=== PATIENT | female | born 1975 | race Caucasian/White ===

== ENCOUNTER → 2020-04-09 18:08 | Outpatient (CLI) | payer BC, SELFPAY ==
--- NOTE | ~2020-04-09 | MM_ITS ---
EXAMINATION: MM screening [facility] BI w [facility] HISTORY: Screening mammogram TECHNIQUE: Craniocaudal and mediolateral oblique 3-D tomosynthesis images were obtained and synthetic 2-D images were generated. CAD analysis was submitted and interpreted. COMPARISON: 03/22/2018 bilateral digital screening mammogram examination......... BREAST PARENCHYMAL COMPOSITION: There are scattered areas of fibroglandular density. FINDINGS: There is no evidence of suspicious mass, calcification, or architectural distortion to sugg est malignancy in either breast. There has been no suspicious interval change. IMPRESSION: 1. No mammographic evidence of malignancy. 2. Recommend routine screening mammography in one year. BI-RADS Category 1: Negative Reviewed, dictated and finalized at location A. R MAINTENANCE
== END ==
PROVIDERS: Visit Provider Nurse Practitioner
DX: Z12.31 Encounter for screening mammogram for malignant neoplasm of breast (principal)
CPT/HCPCS: 77063; 77067

== ENCOUNTER 2021-01-25 07:42 | Outpatient (CLI) | payer BC, SELFPAY ==
--- NOTE | 2021-02-04 23:23 | WPDHOMESLEEP ---
Sleep Study - Home Unattended Date of Study: 01/25/21 Ordering Provider: Ralph Magana APRN Interpreting Provider: Bee Arambula MD Home Sleep Study Type: Apnea Link Air Height: 1.6 m Weight: 99.79 kg Body Mass Index: 38.9 Neck Circumference (inches): 16 Temple: 13 Reason for Sleep Study Hypersomnia Sleep History Radha Jorge is a 45 year old female with excessive daytime sleepiness, non refreshing sleep and episodes of falling asleep while reading and watching television for almost 10 years. She wakes up throughout the night and has a difficult time waking in the morning. She does not awaken from sleep feeling short of breath. She occasionally awakens at night with heartburn, belching or coughing. She constantly snores and is frequently loud enough that others complain about it. She frequently has trouble sleeping with a cold. She does not wake up gasping for breath at night or have breathing problems at night observed by others. She constantly sweats excessively at night. She does not notice her heart pounding or beating irregularly at night. She frequently falls asleep during the day, occasionally involuntarily, but never while driving. She does not have loss of muscle tone with strong emotion. She rarely has daytime difficulties due to excessive sleepiness. She does not feel paralyzed on waking or falling asleep. She occasionally has vivid dreamlike scenes upon awakening or falling asleep. She does not feel afraid to go to sleep. She occasionally has nightmares. She rarely remembers her dreams. She frequently has racing thoughts. She frequently feels sad or depressed. She constantly has anxiety. She occasionally has muscular tension and occasionally notices parts of her body jerking. She rarely kicks at night. She does not have crawling and aching feelings in her legs. She denies any kind of leg pain at night. She does not have morning jaw pain. She does not grind her teeth during sleep. She rarely is bothered by pain during the day. She is not awakened by pain at night. She occasionally wakes up feeling stiff in the morning with sore achy muscles. She rarely wakes up with pain in the neck and spine. She has fatigue, memory problems, concentration difficulties and headaches. She feels depressed. Normal bedtime is 12:00 midnight falling asleep instantly, typically waking 2-4 times during the night. While awake, she will toss and turn, and play games on her phone to try to get back to sleep. It may take 30 minutes or up to an hour for her to return to sleep. She wakes the morning at 5:50 a.m.. On weekends, she has the same bedtime, midnight, wakes later at 7:00 am. She does not set an alarm for the weekend. She occasionally takes naps in the afternoon or evening. A short nap is not refreshing. She is usually drowsy for 3 hours or longer after waking. Habits: Never smoked tobacco. Caffeine 2 servings a day. Rare alcohol. No recreational drugs. [facility] Past Medical History Medical History (Updated 02/04/21 @ 23:41 by Bee Arambula MD) ADD (attention deficit disorder) Anemia Anxiety Depression Irritable bowel syndrome (IBS) Panic disorder Vitamin D deficiency Surgical History Surgical History (Updated 12/14/20 @ 14:52 by Ralph Magana APRN) History of ear surgery by Dr. Aguila Hx of tonsillectomy Family History Family History (Updated 12/14/20 @ 14:53 by Ralph Magana APRN) Mother Heart disease Acute myocardial infarction Hypertension Father Depression Anxiety Alcohol abuse Sibling Asthma Obesity Heart disease Social History Social History (Updated 12/14/20 @ 14:52 by Ralph Magana APRN) Smoking status: Never smoker Alcohol use details: social 2 drinks/month Substance use: never Medications Home Medications Medication Instructions Recorded Confirmed Type bupropion HCl 300 mg 24 hr tablet, 300 mg PO QAM 12/14/20 12/14/20 History
[2021-02-04 23:47] VITALS: BMI 38.9
== END 2021-01-26 13:08 | disposition home or self-care (01) ==
LOC: ANHCSM 07:48
PROVIDERS: PCP Family Medicine; Visit Provider Nurse Practitioner Family
DX: G47.10 Hypersomnia, unspecified (principal); G47.33 Obstructive sleep apnea (adult) (pediatric); F51.12 Insufficient sleep syndrome
CPT/HCPCS: 95806

== ENCOUNTER → 2021-11-10 16:21 | Outpatient (CLI) | payer BC, SELFPAY ==
--- NOTE | ~2021-11-10 | MM_ITS ---
EXAMINATION: MM screening [facility] BI w holly HISTORY: Screening TECHNIQUE: Craniocaudal and mediolateral oblique 3-D tomosynthesis images were obtained and synthetic 2-D images were generated. CAD analysis was submitted and interpreted. COMPARISON: Comparison to multiple prior studies sequentially, with oldest reviewed study dated 03/08. BREAST PARENCHYMAL COMPOSITION: There are scattered areas of fibroglandular density. FINDINGS: There is no evidence of suspicious mass, calcification, or architectural distortion to sugg est malignancy in either breast. There has been no suspicious interval change. IMPRESSION: 1. No mammographic evidence of malignancy. 2. Recommend routine screening mammography in one year. BI-RADS Category 1: Negative Reviewed, dictated and finalized at location A.
== END ==
PROVIDERS: PCP Nurse Practitioner; Visit Provider Nurse Practitioner
DX: Z12.31 Encounter for screening mammogram for malignant neoplasm of breast (principal)
CPT/HCPCS: 77063; 77067

== ENCOUNTER 2021-12-27 11:57 | Emergency (ER) | payer BC, SELFPAY ==
--- NOTE | ~2021-12-27 | XR_ITS ---
EXAMINATION: XR knee RT min 4V DATE: 12/27/2021 12:54 INDICATION: Left knee pain TECHNIQUE: Four views of the left knee were obtained. COMPARISON: None. FINDINGS: Alignment is normal. No fracture or osteochondral lesion. Joint spaces are normal with no e rosions. No joint effusion/synovitis. Soft tissues are unremarkable. IMPRESSION: 1. No acute osseous abnormality. Reviewed, dictated and finalized at location B.
[2021-12-27 12:32] VITALS: BP 145/86; PULSE 91; RESP 16; TEMP 36.5; O2SAT 100
--- NOTE | 2021-12-27 13:06 | ED.LOWEXIN ---
HPI - Extremity Injury (Lower) General Chief Complaint: Extremity Injury, Lower Stated Complaint: right knee injury Time Seen by Provider: 12/27/21 12:59 Source: RN notes reviewed History of Present Illness HPI Narrative: Patient presents emergency department from home for right knee pain. Patient states that yesterday her dog was on a leash when it chased after [place] at the park causing her to fall to the ground patient states she came down on her right knee states that since that time has had increased pain and swelling in her right knee worse with bending the knee and improved with straightening the knee she denies any other trauma or injury states she last took ibuprofen last night for the pain Related Data Home Medications Medication Instructions Recorded Confirmed bupropion HCl 300 mg 24 hr tablet, 300 mg PO QAM 12/14/20 09/08/21 extended release clonazepam 0.5 mg tablet 0.5 mg PO DAILY PRN 12/14/20 09/08/21 duloxetine 60 mg capsule,delayed 60 mg PO DAILY 12/14/20 09/08/21 release eluxadoline 75 mg tablet (Viberzi) 75 mg PO BID 12/14/20 09/08/21 ibuprofen 200 mg capsule 200 mg PO Q6H PRN 12/14/20 09/08/21 Allergies Allergy/AdvReac Type Severity Reaction Status Date / Time No Known Allergies Allergy Mild Verified 09/08/21 09:23 Review of Systems Review of Systems: Gen.: Denies fevers or chills Musculoskeletal: See HPI Neuro: Denies numbness, tingling, weakness Skin: Denies rash Endo: Denies DM PMFSH Past Medical History Medical History ADD (attention deficit disorder) Anemia Anxiety Depression Irritable bowel syndrome (IBS) Panic disorder Vitamin D deficiency Surgical History Surgical History History of ear surgery by Dr. Aguila Hx of tonsillectomy Family History Family History Mother Heart disease Acute myocardial infarction Hypertension Father Depression Anxiety Alcohol abuse Sibling Asthma Obesity Heart disease Social History Social History Smoking status: Never smoker Alcohol use details: social 2 drinks/month Substance use: never Exam Narrative: APPEARANCE: No acute distress, nontoxic, resting in bed Eyes: EOMI HEENT: Normocephalic, atraumatic, RESPIRATORY: No respiratory distress MUSCULOSKELETAl: Tender to palpation of the right anterior medial lateral knee mild swelling with no ecchymosis no tenderness of the right hip or ankle dorsalis pedis pulse 2+ neurovascular intact pain increased with flexion of the knee and improved with straightening of the knee NEURO: Awake and alert. Following commands, speech normal, no focal deficits SKIN:: Warm, dry. Normal Color no rash or lesions Course Vital Signs Vital signs: Vital Signs Temperature 97.7 F 12/27/21 12:32 Pulse Rate 91 12/27/21 12:32 Respiratory Rate 16 12/27/21 12:32 Blood Pressure 145/86 H 12/27/21 12:32 Pulse Oximetry 100 12/27/21 12:32 Oxygen Delivery Room Air 12/27/21 12:32 Temperature 97.7 F 12/27/21 12:32 Pulse Rate 91 12/27/21 12:32 Respiratory Rate 16 12/27/21 12:32 Blood Pressure 145/86 H 12/27/21 12:32 Pulse Oximetry 100 12/27/21 12:32 Oxygen Delivery Room Air 12/27/21 12:32 MDM - Extremity Injury (Lower) Imaging Data Radiologist's impression: ITS Impressions Knee X-Ray 12/27/21 12:56 IMPRESSION: 1. No acute osseous abnormality. Discharge Plan Discharge Clinical Impression: Contusion of knee Qualifiers: Encounter type: initial encounter Laterality: right Qualified Code(s): S80.01XA - Contusion of right knee, initial encounter Patient Disposition: Home, Self-Care Condition: Stable Instructions: Antibiotic Form, Knee Pain (ED) Additional Instructions: Return for increasing nuria
[2021-12-27] MEDS: IBUPROFEN 600 MG TABLET PO (13:19)
== END 2021-12-27 13:28 | disposition home or self-care (01) ==
PROVIDERS: Emergency Provider Emergency Medicine; PCP Nurse Practitioner
DX: S80.01XA Contusion of right knee, initial encounter (principal); F98.8 Other specified behavioral and emotional disorders with onset usually occurring in childhood and adolescence; D64.9 Anemia, unspecified; F41.9 Anxiety disorder, unspecified; F32.9 Major depressive disorder, single episode, unspecified; W01.0XXA Fall on same level from slipping, tripping and stumbling without subsequent striking against object, initial encounter
CPT/HCPCS: 73564; 99283; A9270

== ENCOUNTER 2022-03-25 15:47 | Emergency (ER) | payer BC, SELFPAY ==
[2022-03-25 16:05] VITALS: BP 138/92; PULSE 89; RESP 18; TEMP 36.6; O2SAT 100
--- NOTE | 2022-03-25 16:54 | ED.URI ---
HPI - URI/Sore Throat General Chief Complaint: Upper Respiratory Infection Stated Complaint: Congestion Time Seen by Provider: 03/25/22 16:54 Source: patient Mode of arrival: ambulatory Limitations: no limitations History of Present Illness HPI Narrative: 46-year-old female with complaint of sinus pressure congestion, CP, and bilateral ear pain for about 11 days. Right ear with more pain than left. She tested negative for COVID last week. Endorses chronic decreased hearing. Denies vertigo, tinnitus, shortness of breath, wheezing, nausea, vomiting, diarrhea, fevers or chills. Not taking anything for symptoms. Patient has history of cholesteatoma, tube placement and removal, follows with ENT, and has had ear bones replaced with plastic, and part of mastoid removed. Related Data Home Medications Medication Instructions Recorded Confirmed bupropion HCl 300 mg 24 hr tablet, 300 mg PO QAM 12/14/20 03/25/22 extended release clonazepam 0.5 mg tablet 0.5 mg PO DAILY PRN Anxiety 12/14/20 03/25/22 duloxetine 60 mg capsule,delayed 60 mg PO DAILY 12/14/20 03/25/22 release eluxadoline 75 mg tablet (Viberzi) 75 mg PO BID 12/14/20 03/25/22 Allergies Allergy/AdvReac Type Severity Reaction Status Date / Time No Known Allergies Allergy Mild Verified 03/25/22 16:34 Review of Systems Review of Systems: CONSTITUTIONAL: Denies malaise, chills, or fever. EYES: Denies visual changes, redness, or discharge. ENT: Denies rhinorrhea, congestion, sinus pain, and sore throat. Reports ear pain CARDIOVASCULAR: Denies chest pain, palpitations, or edema. RESPIRATORY: Denies cough or dyspnea. GASTROINTESTINAL: Denies abdominal pain, nausea, vomiting, diarrhea SKIN: Denies rash or itching. MUSCULOSKELETAL: Denies myalgia. NEUROLOGIC: Denies headache. All systems reviewed & are unremarkable except as noted in HPI and below PMFSH Past Medical History Medical History ADD (attention deficit disorder) Anemia Anxiety Depression Irritable bowel syndrome (IBS) Panic disorder Vitamin D deficiency Surgical History Surgical History History of ear surgery by Dr. Aguila Hx of tonsillectomy Family History Family History Mother Heart disease Acute myocardial infarction Hypertension Father Depression Anxiety Alcohol abuse Sibling Asthma Obesity Heart disease Social History Social History Smoking status: Never smoker Alcohol use details: social 2 drinks/month Substance use: never Comments At time of signature, agree with nursing past medical, surgical, social and family history. There is no relevant family history pertinent to the presenting complaint Exam Narrative: GENERAL: Well-appearing, well-nourished, and in no acute distress. EYES: PERRLA, conjunctivae clear ENT: Nares clear. Mucous membranes moist. Left TM pearly meraz with dull light reflex; Right canal without specific landmarks, TM appears scarred vs effusion, dull light reflex, no purulent drainage; no tragal tenderness. Oropharynx not erythematous without lesions. NECK: Supple. No lymphadenopathy CHEST: Clear to auscultation, breath sounds equal. HEART: Regular rate and rhythm. No murmur heard. SKIN: Warm, dry, no rash. NEURO: Alert and oriented x3. PSYCH: Normal mood and affect Course Course Emergency Course: Patient is aware of diagnosis, understands and agrees to treatment plan. Anticipatory guidance given. Patient agrees to follow-up as directed and is aware of reasons to seek care at the emergency department. Portions of this record may have been created with voice recognition software Level of Care: Express Care Visit Vital Signs Vital signs: Vital Signs Temperature 97.8 F 03/25/22 16:05 Pulse Rate 89 03/25/22
== END 2022-03-25 17:10 | disposition home or self-care (01) ==
PROVIDERS: Emergency Provider Nurse Practitioner Family
DX: J06.9 Acute upper respiratory infection, unspecified (principal); E55.9 Vitamin D deficiency, unspecified
CPT/HCPCS: 99213; G0463

== ENCOUNTER 2022-10-18 01:31 | Day surgery (SDC) | payer BC, SELFPAY ==
[2022-10-10 14:09] VITALS: BMI 44.1
[2022-10-18 08:50] VITALS: BP 146/96; PULSE 90; RESP 16; TEMP 36.2; O2SAT 95; BMI 45.5
[2022-10-18] MEDS: LACTATED RINGERS 1,000 ML 150 ML IV CONT (09:08)
--- NOTE | 2022-10-18 09:21 | WPDANESEPPF ---
Anes - Initial Pre Proc Eval Procedure: Operation Date: 10/18/22 10:00 Proposed Procedures p Screening Colonoscopy - Blane Morgan MD Date/Time: 10/18/22 09:21 Surgeon: Blane Morgan MD Pre Op Diagnosis: neoplasm screening Patient Data Age: 47 Gender: F Height: 1.6 m Weight: 116.6 kg Last Vital Signs Temp 36.2 C L 10/18/22 08:50 Pulse 90 10/18/22 08:50 Resp 16 10/18/22 08:50 BP 146/96 H 10/18/22 08:50 Pulse Ox 95 10/18/22 08:50 O2 Del Method Room Air 10/18/22 08:50 Allergies Allergy/AdvReac Type Severity Reaction Status Date / Time No Known Allergies Allergy Mild Verified 10/18/22 08:55 Home Medications Medication Instructions Recorded Confirmed Type clonazepam 0.5 mg tablet 0.5 mg PO DAILY PRN Anxiety 12/14/20 10/18/22 History eluxadoline 75 mg tablet (Viberzi) 75 mg PO BID 12/14/20 10/18/22 History lisdexamfetamine 50 mg capsule 50 mg PO DAILY 10/10/22 10/18/22 History (Vyvanse) Patient hx anesthesia problems: none Family hx anesthesia problems: none Results Review: All pre-operative results and documents have been reviewed as part of the pre-operative evaluation. [facility] Past Medical History Medical History ADD (attention deficit disorder) Anemia Anxiety Depression Irritable bowel syndrome (IBS) Panic disorder Vitamin D deficiency Surgical History Surgical History History of ear surgery by Dr. Aguila Hx of tonsillectomy Family History Family History Mother Heart disease Acute myocardial infarction Hypertension Father Depression Anxiety Alcohol abuse Sibling Asthma Obesity Heart disease Social History Social History Smoking status: Never smoker Alcohol intake: never Alcohol use details: social 2 drinks/month Substance use: never Substance use type: does not use Living arrangements: with family Spiritual care concerns: No Anes - Eval Final PreProcedure Day of Procedure 10/18/22 09:21 Patient weight: morbidly obese Heart: regular rate and rhythm Lungs: clear to auscultation and normal air movement Airway: Mallampati scale class II Neurological: alert and oriented Last oral intake: >/= 8 hours ASA classification: III Emergent: no Anesthetic plan: proceed Anesthesia type and monitoring: general GIVS Results Review: All pre-operative results and documents have been reviewed as part of the pre-operative evaluation. Informed Consent: The patient's anesthetic plan and its attendant risks and benefits were discussed with the patient/family/POA. Questions were solicited and answers provided to the satisfaction of the patient/family/POA.
--- NOTE | 2022-10-18 09:33 | PM.HPGS ---
History of Present Illness History of Present Illness Consent: Risks, benefits, and alternatives have been discussed and questions answered. Patient agrees to proceed with procedure. Chief complaint: neoplasm screening Narrative: Radha Jorge is a 47 year old female Referred for screening colonoscopy. Patient reports that she in the past she was told she had irritable bowel syndrome. She has diarrhea alternating with constipation. Primary care service gave her a prescription for for Viberzi that helps with diarrhea. That did not help with abdominal bloating or discomfort. She only takes this medication p.r.n.. Family history is noncontributory. Patient denies any bleeding. Her weight has remained stable. Review of Systems Review of Systems: Review of systems noncontributory. [facility] Past Medical History Medical History (Updated 10/18/22 @ 09:35 by Blane Morgan MD) ADD (attention deficit disorder) Anemia Anxiety Depression Irritable bowel syndrome (IBS) Panic disorder Vitamin D deficiency Surgical History Surgical History History of ear surgery by Dr. Aguila Hx of tonsillectomy Family History Family History Mother Heart disease Acute myocardial infarction Hypertension Father Depression Anxiety Alcohol abuse Sibling Asthma Obesity Heart disease Social History Social History Smoking status: Never smoker Alcohol intake: never Alcohol use details: social 2 drinks/month Substance use: never Substance use type: does not use Living arrangements: with family Spiritual care concerns: No Meds Home Medications and Allergies Home Medications Medication Instructions Recorded Confirmed Type clonazepam 0.5 mg tablet 0.5 mg PO DAILY PRN Anxiety 12/14/20 10/18/22 History eluxadoline 75 mg tablet (Viberzi) 75 mg PO BID 12/14/20 10/18/22 History lisdexamfetamine 50 mg capsule 50 mg PO DAILY 10/10/22 10/18/22 History (Vyvanse) Allergies Allergy/AdvReac Type Severity Reaction Status Date / Time No Known Allergies Allergy Mild Verified 10/18/22 08:55 Vital Signs Vital Signs - 24 hr 10/18/22 08:50 Temperature 97.1 F L Pulse Rate 90 Respiratory Rate 16 Blood Pressure 146/96 H Pulse Oximetry 95 Oxygen Delivery Room Air Exam Narrative: Physical exam reveals patient to be alert. Vital signs stable. HEENT exam is unremarkable. Patient is anicteric. Lungs are clear to auscultation and percussion. Heart is without murmur or extra sounds. Abdomen bowel sounds are present soft nontender with no organomegaly. Digital external rectal exam is normal. Assessment and Plan Assessment and plan (1) Encounter for screening colonoscopy: Code(s): Z12.11 - Encounter for screening for malignant neoplasm of colon Status: Acute Assessment and Plan: Patient presents for screening colonoscopy. Appears to be at average risk for colon polyps. Further recommendations may be given after endoscopy. (2) Irritable bowel syndrome (IBS): Code(s): K58.9 - Irritable bowel syndrome without diarrhea Status: Acute Assessment and Plan: Patient with apparent irritable bowel syndrome. She takes Viberzi but p.r.n.. Not on any specific diet. Plan to add FiberCon 2 tabs p.o. b.i.d.. If symptoms fail to improve follow-up in the office is advised for ongoing evaluation.
[2022-10-18 10:44] VITALS: BP 110/68; PULSE 71; RESP 26; O2SAT 98
[2022-10-18 10:54] VITALS: BP 134/85; PULSE 78; RESP 24; O2SAT 99
[2022-10-18 11:04] VITALS: BP 141/89; PULSE 63; RESP 24; O2SAT 99
== END 2022-10-18 11:13 | disposition home or self-care (01) ==
PROVIDERS: Referring Provider Obstetrics & Gynecology Gynecology; Visit Provider Internal Medicine Gastroenterology
PROC: 0DJD8ZZ Inspection of Lower Intestinal Tract, Via Natural or Artificial Opening Endoscopic (ICD-10-PCS; CPT 45378; principal; 2022-10-18 10:00)
DX: Z12.11 Encounter for screening for malignant neoplasm of colon (principal); K64.8 Other hemorrhoids; K58.9 Irritable bowel syndrome, unspecified; F98.8 Other specified behavioral and emotional disorders with onset usually occurring in childhood and adolescence; F41.9 Anxiety disorder, unspecified; F32.A Depression, unspecified; E66.01 Morbid (severe) obesity due to excess calories; Z68.42 Body mass index [BMI] 45.0-49.9, adult
CPT/HCPCS: 45378; J2704; J7120

== ENCOUNTER → 2023-05-25 12:31 | Outpatient (CLI) | payer BC, SELFPAY ==
--- NOTE | ~2023-05-25 | MM_ITS ---
EXAMINATION: MM screening [facility] BI w holly HISTORY: Screening TECHNIQUE: Craniocaudal and mediolateral oblique 3-D tomosynthesis images were obtained and synthetic 2-D images were generated. CAD analysis was submitted and interpreted. COMPARISON: Comparison to multiple prior studies sequentially, with oldest reviewed study dated 03/08. BREAST PARENCHYMAL COMPOSITION: There are scattered areas of fibroglandular density. FINDINGS: There is no evidence of suspicious mass, calcification, or architectural distortion to sugg est malignancy in either breast. There has been no suspicious interval change. IMPRESSION: 1. No mammographic evidence of malignancy. 2. Recommend routine screening mammography in one year. BI-RADS Category 1: Negative Reviewed, dictated and finalized at location A. [employer]
== END ==
PROVIDERS: PCP Nurse Practitioner; Visit Provider Nurse Practitioner
DX: Z12.31 Encounter for screening mammogram for malignant neoplasm of breast (principal)
CPT/HCPCS: 77063; 77067

== ENCOUNTER 2023-10-23 19:13 | Emergency (ER) | payer BC, SELFPAY ==
--- NOTE | 2023-10-23 19:16 | ED.LOWEXIN ---
HPI - Extremity Injury (Lower) General Chief Complaint: Extremity Injury, Lower Stated Complaint: left knee injury Time Seen by Provider: 10/23/23 19:15 Source: patient Mode of arrival: ambulatory Limitations: no limitations History of Present Illness HPI Narrative: Patient is a 48-year-old female presents with left knee pain for the last 2 weeks. Patient initially injured it a month ago. Patient has been helping a friend move and just started the VBS today. Patient has been wearing knee brace but has not iced, elevated or taken ibuprofen. Reports pain is the lowest in the morning after resting. Related Data Home Medications Medication Instructions Recorded Confirmed clonazepam 0.5 mg tablet 0.5 mg PO DAILY PRN Anxiety 12/14/20 03/08/23 lisdexamfetamine 50 mg capsule 50 mg PO DAILY 10/10/22 03/08/23 (Vyvanse) Allergies Allergy/AdvReac Type Severity Reaction Status Date / Time No Known Allergies Allergy Mild Verified 03/08/23 09:30 Review of Systems Review of Systems: All systems reviewed & are unremarkable except as noted in HPI and below Constitutional: Constitutional: Denies body ache(s), Denies chills, Denies fatigue, Denies fever(s), Denies headache(s), Denies malaise and Denies weakness Eyes: Eyes: Denies blurry vision, Denies irritation and Denies loss of vision ENT: Denies otalgia, Denies headache(s), Denies nasal discharge, Denies sinus pain and Denies sore throat Cardiovascular: Cardiovascular: Denies chest pain, Denies irregular heart rhythm and Denies dyspnea Respiratory: Respiratory: Denies dyspnea Gastrointestinal: Gastrointestinal: Denies abdominal pain, Denies melena, Denies hematochezia, Denies diarrhea, Denies nausea and Denies vomiting Musculoskeletal: Musculoskeletal: Denies back pain, Denies myalgias, Reports arthralgias and Reports joint swelling Integumentary/Breasts: Skin/Breast: Denies pruritus and Denies rash Neurologic: Denies headache(s), Denies loss of vision and Denies weakness Psychiatric: Psychiatric: Reports no additional psychiatric complaints Endocrine: Endocrine: Denies fatigue PMFSH Past Medical History Medical History ADD (attention deficit disorder) Anemia Anxiety Depression Irritable bowel syndrome (IBS) Panic disorder Vitamin D deficiency Surgical History Surgical History History of ear surgery by Dr. Aguila Hx of tonsillectomy Family History Family History Mother Heart disease Acute myocardial infarction Hypertension Father Depression Anxiety Alcohol abuse Sibling Asthma Obesity Heart disease Social History Social History Smoking status: Never smoker Alcohol intake: never Alcohol use details: social 2 drinks/month Substance use: never Substance use type: does not use Living arrangements: with family Spiritual care concerns: No Comments At time of signature, agree with nursing past medical, surgical, social and family history. There is no relevant family history pertinent to the presenting complaint. Exam Const: General: cooperative, healthy appearing, comfortable, no acute distress and well nourished Nutritional Appearance: well nourished Orientation/consciousness: patient oriented x3 Limitations: no limitations HENMT: Head: normal to inspection, normocephalic and atraumatic Ears: hearing grossly normal bilaterally and external ears normal Face/Nose/Sinus: Normal external nose present, normal facial exam and face symmetric Face and sinus: normal facial exam and face symmetric Mouth: Yes lip normal Eyes: General: appearance normal, both eyes and all related structures Alignment and Position: alignment normal and position normal Periorbital: periorbital findings normal Eyelids: eyelids
[2023-10-23 19:19] VITALS: BP 139/68; PULSE 91; RESP 16; TEMP 36.1; O2SAT 98
== END 2023-10-23 20:00 | disposition home or self-care (01) ==
PROVIDERS: Emergency Provider Nurse Practitioner Family; Referring Provider Emergency Medicine
DX: M23.92 Unspecified internal derangement of left knee (principal); F98.8 Other specified behavioral and emotional disorders with onset usually occurring in childhood and adolescence; F41.9 Anxiety disorder, unspecified
CPT/HCPCS: 99213; G0463

== ENCOUNTER 2023-11-13 14:33 | Emergency (ER) | payer BC, SELFPAY ==
--- NOTE | ~2023-11-13 | US_ITS ---
EXAMINATION: US venous doppler [facility] DATE: 11/13/2023 18:44 INDICATION: Left lower limb pain and swelling. TECHNIQUE: Grayscale ultrasound images without and with compression and Doppler ultrasound images of the left lower extremity veins were obtained. COMPARISON: None. FINDINGS: The visualized portions of left common femoral vein, profunda (deep) femoral vein, femoral vein, popl iteal vein, peroneal veins, posterior tibial veins, and greater saphenous vein outflow are patent. IMPRESSION: 1. No deep venous thrombosis. Reviewed, dictated and finalized at location E.
--- NOTE | ~2023-11-13 | XR_ITS ---
XR knee LT min 4V Ordering provider: Dexter Kelsey MD History: . TWISTING INJURY TO KNEE 5 WEEKS AGO/PAIN TO ENTIRE KNEE . Comparison: None. FINDINGS: BONES: No acute fracture or dislocation. JOINT SPACES: Slight narrowing of the lateral compartment. SOFT TISSUES: Normal. IMPRESSION: No acute osseous abnormality left knee. Mild osteoarthritic changes. Reviewed, dictated and finalized at location A.
[2023-11-13 14:36] VITALS: BP 185/82; PULSE 78; RESP 16; TEMP 36.8; O2SAT 97
--- NOTE | 2023-11-13 17:02 | ED.LOWEXIN ---
HPI - Extremity Injury (Lower) General Chief Complaint: Extremity Injury, Lower Stated Complaint: L knee pain Time Seen by Provider: 11/13/23 16:57 Source: patient Mode of arrival: ambulatory Limitations: no limitations History of Present Illness HPI Narrative: Patient is a 48 y/o female who presents to the ED with c/o L knee pain. Patient reports she hyperextended her L knee a few months ago after sleeping in an awkward position. She reports 5 weeks ago, she twisted her L knee, heard and felt a pop at that time. Reported having worsening pain and swelling at that time. Has been wearing a knee brace and using ibuprofen with some relief. States she was seen at an last week and was Rx'd steroids which did improve her pain. Reports she has had worsening pain over past few days. Denies any further injury. Does reports swelling extending into her L lower leg/ankle region. Has an appointment with Dr. Khan on November 21. Denies numbness, hx of blood clots. Related Data Home Medications Medication Instructions Recorded Confirmed clonazepam 0.5 mg tablet 0.5 mg PO DAILY PRN Anxiety 12/14/20 03/08/23 lisdexamfetamine 50 mg capsule 50 mg PO DAILY 10/10/22 03/08/23 (Vyvanse) Allergies Allergy/AdvReac Type Severity Reaction Status Date / Time No Known Allergies Allergy Mild Verified 03/08/23 09:30 Review of Systems Review of Systems: CONSTITUTIONAL: Denies fever, chills, or sweats. MUSCULOSKELETAL: See HPI. NEUROLOGIC: Denies headache, dizziness, numbness, or weakness. All systems reviewed & are unremarkable except as noted in HPI and below PMFSH Past Medical History Medical History ADD (attention deficit disorder) Anemia Anxiety Depression Irritable bowel syndrome (IBS) Panic disorder Vitamin D deficiency Surgical History Surgical History History of ear surgery by Dr. Aguila Hx of tonsillectomy Family History Family History Mother Heart disease Acute myocardial infarction Hypertension Father Depression Anxiety Alcohol abuse Sibling Asthma Obesity Heart disease Social History Social History Smoking status: Never smoker Alcohol intake: never Alcohol use details: social 2 drinks/month Substance use: never Substance use type: does not use Living arrangements: with family Spiritual care concerns: No Exam Narrative: GENERAL: Well appearing, morbidly obese with BMI of 43.5, non-toxic, in no acute distress. HEAD: Normocephalic, atraumatic. RESPIRATORY: Airway patent, respirations nonlabored. CARDIOVASCULAR: Regular rate and rhythm without murmurs, rubs, or gallops. Pedal pulses intact. MUSCULOSKELETAL: Moves all extremities. No gross deformities. TTP throughout inferior and lateral knee joint spaces, mild swelling noted laterally. Sensation intact. Mild swelling throughout left lower leg compared to R. SKIN: Warm, dry, normal color. NEURO: A&O X3. Speech clear. Cranial nerves II-XII grossly intact. Steady gait, mildly antalgic. No ataxic movements. PSYCHIATRIC: Appropriate mood and affect. Normal interaction. Course Vital Signs Vital signs: Vital Signs Temperature 98.3 F 11/13/23 14:36 Pulse Rate 78 11/13/23 14:36 Respiratory Rate 16 11/13/23 14:36 Blood Pressure 185/82 H 11/13/23 14:36 Pulse Oximetry 97 11/13/23 14:36 Temperature 97.7 F 11/13/23 17:34 Pulse Rate 84 11/13/23 17:34 Respiratory Rate 18 11/13/23 17:34 Blood Pressure 152/76 H 11/13/23 17:34 Pulse Oximetry 98 11/13/23 17:34 MDM - Extremity Injury (Lower) MDM Narrative Medical decision making narrative: Patient?s injury is consistent with musculoskeletal etiology. No signs of neurologic or vascular compromise
[2023-11-13 17:34] VITALS: BP 152/76; PULSE 84; RESP 18; TEMP 36.5; O2SAT 98
[2023-11-13 19:21] VITALS: BP 142/74; PULSE 74; RESP 20; O2SAT 98
== END 2023-11-13 19:05 | disposition home or self-care (01) ==
LOC: ANHED 19:08
PROVIDERS: Emergency Provider Physician Assistant
DX: M23.92 Unspecified internal derangement of left knee (principal); F98.8 Other specified behavioral and emotional disorders with onset usually occurring in childhood and adolescence; D64.9 Anemia, unspecified; F41.9 Anxiety disorder, unspecified; F32.A Depression, unspecified
CPT/HCPCS: 73564; 93971; 99284

== ENCOUNTER 2023-11-28 13:39 | Outpatient (CLI) | payer BC, SELFPAY ==
--- NOTE | ~2023-11-28 | MR_ITS ---
EXAMINATION: MR knee LT wo con DATE: 11/28/2023 14:39 INDICATION: Unspecified internal derangement of left knee TECHNIQUE: Magnetic resonance imaging (MRI) of the knee was performed without intravenous contrast. S equences included axial PD-weighted FS FSE, coronal PD-weighted FSE and PD-weighted FS FSE, sagittal PD-weighted FSE, and sagittal T2-weighted FS FSE. COMPARISON: 11/13/2023. FINDINGS: Medial compartment: Large area of full-thickness cartilage loss on the MFC, measuring up to 15 mm. Vertically oriented te ar of the meniscal root with mild extrusion. Lateral compartment: Mild diffuse cartilage thinning. Intact meniscus. Patellofemoral compartment: Mild diffuse cartilage thinning. Intact retinacula. Ligaments and tendons: Abnormal signal deep to the MCL fibers with fiber discontinuity. The ACL, PCL, and LCL are intact. Re maining flexor and extensor tendons are intact. Fluid: Moderate volume joint fluid. Small Reed's cyst. Osseous/other: No suspicious focal or diffuse marrow signal. Varicose veins. IMPRESSION: Tear of the meniscal root ligament, medial meniscus. Partial MCL tear. Large area of full-thickness cartilage loss on the MFC. Moderate volume joint effusion. Reviewed, dictated and finalized at location K.
== END 2023-11-28 13:40 ==
LOC: GOSHIMG 13:40
PROVIDERS: PCP Physician Assistant Surgical; Visit Provider Physician Assistant Surgical
DX: S83.242D Other tear of medial meniscus, current injury, left knee, subsequent encounter (principal); X58.XXXD Exposure to other specified factors, subsequent encounter; M25.462 Effusion, left knee
CPT/HCPCS: 73721

== ENCOUNTER 2024-01-12 11:14 | Emergency (ER) | payer BC, SELFPAY ==
[2024-01-12 11:30] VITALS: BP 136/61; PULSE 78; RESP 18; TEMP 36.1; O2SAT 100
--- NOTE | 2024-01-12 11:40 | ED.URI ---
HPI - URI/Sore Throat General Chief Complaint: Upper Respiratory Infection Stated Complaint: sore throat Time Seen by Provider: 01/12/24 11:40 Source: patient Mode of arrival: ambulatory Limitations: no limitations History of Present Illness HPI Narrative: 48-year-old female presents with complaint of nasal congestion and fatigue since yesterday. Patient states she recently got home from work conference. Did a COVID test today and it was positive. No chest pain or shortness breath. Reports mild sore throat and coughing. patient concerned she may need paxlovid All systems reviewed and negative except as noted above. Related Data Home Medications Medication Instructions Recorded Confirmed clonazepam 0.5 mg tablet 0.5 mg PO DAILY PRN Anxiety 12/14/20 01/12/24 lisdexamfetamine 50 mg capsule 50 mg PO DAILY 10/10/22 01/12/24 (Vyvanse) duloxetine 60 mg capsule,delayed 60 mg PO DAILY 01/12/24 01/12/24 release Allergies Allergy/AdvReac Type Severity Reaction Status Date / Time No Known Allergies Allergy Mild Verified 01/12/24 11:29 Review of Systems Review of Systems: CONSTITUTIONAL: Denies fever, chills, or sweats. Reports fatigue. EYES: Denies visual changes, redness, or discharge. ENT: Reports rhinorrhea, congestion, sore throat. Denies otalgia. CARDIOVASCULAR: Denies chest pain, palpitations, or edema. RESPIRATORY: reports cough. Denies dyspnea. GASTROINTESTINAL: Denies abdominal pain, nausea, vomiting, or diarrhea. GENITOURINARY: Denies dysuria or hematuria. SKIN: Denies rash or itching. MUSCULOSKELETAL: Denies back pain, joint pain, or myalgia. NEUROLOGIC: Denies headache, numbness, or weakness. PSYCHIATRIC: Denies anxiety or depression. All other systems reviewed are negative, except as documented in HPI. [facility] Past Medical History Medical History ADD (attention deficit disorder) Anemia Anxiety Depression Irritable bowel syndrome (IBS) Panic disorder Vitamin D deficiency Surgical History Surgical History History of ear surgery (~01/2005) by Dr. Aguila History of tympanomastoidectomy (~10/2006) History of tympanomastoidectomy (~03/2010) Hx of tonsillectomy Family History Family History Mother Heart disease Acute myocardial infarction Hypertension Rheumatoid arthritis Father Depression Anxiety Alcohol abuse Sibling Asthma Obesity Heart disease Social History Social History Smoking status: Never smoker Alcohol intake: never Alcohol use details: social 2 drinks/month Substance use: never Substance use type: does not use Do You Feel Safe in your Home?: Yes Lack of Transportation: No Lack of Food: Never True Current Housing: I Have Housing Concerned About Future Housing: No Difficulty Paying Gas/Electric Bills: No Difficulty Paying for Meds: No Currently Unemployed: No Education: Bachelor's Degree Difficulty w/ Childcare or Family Care: No Living arrangements: with family Spiritual care concerns: No Comments At time of signature, agree with nursing past medical, surgical, social and family history. There is no relevant family history pertinent to the presenting complaint. Exam Narrative: GENERAL: This is a well-nourished, well-developed patient, in no apparent distress. HEAD: normocephalic, atraumatic. EYES: PERRL. Sclera clear/white. Vision is grossly intact. EARS: External ears normal, auditory canals clear and without drainage, TMs normal without perforation. Hearing grossly intact. NOSE: External nose normal with clear nasal drainage, mild congestion. THROAT: Mucous membranes moist, Mild erythema postnasal drainage. NECK: Neck supple, non-tender without lymphadenopathy, masses or thyromegaly.
== END 2024-01-12 11:53 | disposition home or self-care (01) ==
PROVIDERS: Emergency Provider Nurse Practitioner Family
DX: U07.1 COVID-19 (principal); F98.8 Other specified behavioral and emotional disorders with onset usually occurring in childhood and adolescence; F41.9 Anxiety disorder, unspecified
CPT/HCPCS: 99211; G0463

== ENCOUNTER 2024-03-04 02:25 | Day surgery (SDC) | payer BC, SELFPAY ==
[2024-02-26 13:34] VITALS: BMI 43.4
--- NOTE | 2024-02-26 13:35 | PC.NURSE ---
Report to the Outpatient Waiting Room, entrance under the green pavilion located off [facility], at time _1pm_ on date _[id number]_. Planned Procedure Time: _3pm__.? Time changes happen often and if your time is changed the preop area will call you the afternoon before. - You and your visitor will be asked to self-screen and do not enter if you have any COVID symptoms. Please call surgeon if you need to reschedule. - A mask is optional within the hospital at this time. Patients may have clear liquids (water, carbonated beverages, clear teas, apple juice) until 3 hours prior to surgery with a maximum of 20 ounces. - No food from midnight until time of surgery and no smoking Take only the following medications with a SIP of water on the morning of surgery: ____Trintellix and if needed may take clonazepam DO NOT STOP ANY OF YOUR OTHER PRESCRIPTION MEDICATIONS PRIOR TO SURGERY EXCEPT THE FOLLOWING Medications to discontinue per physician ___None__ Please no make-up, nail macedonian, hairspray, perfume, deodorant, or body powder the day of surgery.? No jewelry (including any body piercings) or valuables the day of surgery, leave them at home.? Please take a shower or bath the night before, or the morning of, surgery with an antibacterial soap.? Wear comfortable, loose fitting clothing.? - Jewelry must be removed prior to entering the operating room.? Rings and piercings that are not removed may be cut off. - The hospital will not accept responsibility for valuables.? - Please leave all valuables, including medications, at home the day of surgery. If you are going home after surgery, a licensed special needs bus driver must drive you home.? - NO public transportation without another adult if you receive anesthesia. - We recommend that an adult stay with you for 24 hours following discharge. - We also recommend that you do not drive, make important decision, drink alcoholic beverages, or take any drugs that were not prescribed by your health care provider for at least 24 hours after your discharge time. Follow any additional instructions given to you from your surgeon. Telephone instructions given to __Joy_and asked if any additional questions and then verbalized understanding. Patient advised to call surgeon office or pre surgery nurse liaison [phone] if any additional questions.
--- NOTE | 2024-03-03 15:59 | WPDANESEPP ---
Caitie - Good Pre Procedure Procedure: Operation Date: 03/04/24 15:00 Proposed Procedures p Left Knee Arthroscopy, Partial Medial Meniscectomy with Chondroplasty - Emilio Khan MD Date/Time: 03/03/24 15:59 Pre Op Diagnosis: left knee medial meniscus tear Patient Data Age: 48 Gender: F Height: 1.6 m Weight: 111.4 kg Allergies Allergy/AdvReac Type Severity Reaction Status Date / Time No Known Allergies Allergy Mild Verified 02/26/24 13:27 Home Medications Medication Instructions Recorded Confirmed Type clonazepam 0.5 mg tablet 0.5 mg PO DAILY PRN Anxiety 12/14/20 02/26/24 History lisdexamfetamine 30 mg capsule 30 mg PO DAILY 02/26/24 02/26/24 History vortioxetine 10 mg tablet 10 mg PO DAILY 02/26/24 02/26/24 History (Trintellix) Patient hx anesthesia problems: none Family hx anesthesia problems: none Results Review: All pre-operative results and documents have been reviewed as part of the pre-operative evaluation. [facility], [facility] Past Medical History Medical History ADD (attention deficit disorder) Anemia Anxiety Depression Irritable bowel syndrome (IBS) Panic disorder Vitamin D deficiency Surgical History Surgical History History of ear surgery (~01/2005) by Dr. Aguila History of tympanomastoidectomy (~10/2006) History of tympanomastoidectomy (~03/2010) Hx of tonsillectomy Family History Family History Mother Heart disease Acute myocardial infarction Hypertension Rheumatoid arthritis Father Depression Anxiety Alcohol abuse Sibling Asthma Obesity Heart disease Social History Social History Smoking status: Never smoker Alcohol intake: never Alcohol use details: social 2 drinks/month Substance use: never Substance use type: does not use Do You Feel Safe in your Home?: Yes Lack of Transportation: No Lack of Food: Never True Current Housing: I Have Housing Concerned About Future Housing: No Difficulty Paying Gas/Electric Bills: No Difficulty Paying for Meds: No Currently Unemployed: No Education: Bachelor's Degree Difficulty w/ Childcare or Family Care: No Living arrangements: with family Spiritual care concerns: No Exam Day of Procedure 03/03/24 15:59
[2024-03-04] VITALS (8 sets, daily range): BP systolic 136–149; BP diastolic 73–98; PULSE 76–88; RESP 16–100; TEMP 36.9; O2SAT 94–100
[2024-03-04] MEDS: LACTATED RINGERS 1,000 ML 30 ML IV CONT ×3 (13:30→16:44)
--- NOTE | 2024-03-04 14:13 | WPDANESEPPF ---
Anes - Initial Pre Proc Eval Procedure: Operation Date: 03/04/24 15:00 Proposed Procedures p Left Knee Arthroscopy, Partial Medial Meniscectomy with Chondroplasty - Emilio Khan MD Date/Time: 03/04/24 14:13 Surgeon: Emilio Khan MD Pre Op Diagnosis: left knee medial meniscus tear Patient Data Age: 48 Gender: F Height: 1.6 m Weight: 111.4 kg Allergies Allergy/AdvReac Type Severity Reaction Status Date / Time No Known Allergies Allergy Mild Verified 02/26/24 13:27 Home Medications Medication Instructions Recorded Confirmed Type clonazepam 0.5 mg tablet 0.5 mg PO DAILY PRN Anxiety 12/14/20 02/26/24 History lisdexamfetamine 30 mg capsule 30 mg PO DAILY 02/26/24 02/26/24 History vortioxetine 10 mg tablet 10 mg PO DAILY 02/26/24 02/26/24 History (Trintellix) hydrocodone 5 mg-acetaminophen 325 1 - 2 tablet PO Q4-6H PRN pain 7 03/04/24 Rx mg tablet days #30 tabs Patient hx anesthesia problems: none Family hx anesthesia problems: none Results Review: All pre-operative results and documents have been reviewed as part of the pre-operative evaluation. [facility] Past Medical History Medical History ADD (attention deficit disorder) Anemia Anxiety Depression Irritable bowel syndrome (IBS) Panic disorder Vitamin D deficiency Surgical History Surgical History History of ear surgery (~01/2005) by Dr. Aguila History of tympanomastoidectomy (~10/2006) History of tympanomastoidectomy (~03/2010) Hx of tonsillectomy Family History Family History Mother Heart disease Acute myocardial infarction Hypertension Rheumatoid arthritis Father Depression Anxiety Alcohol abuse Sibling Asthma Obesity Heart disease Social History Social History Smoking status: Never smoker Alcohol intake: never Alcohol use details: social 2 drinks/month Substance use: never Substance use type: does not use Do You Feel Safe in your Home?: Yes Lack of Transportation: No Lack of Food: Never True Current Housing: I Have Housing Concerned About Future Housing: No Difficulty Paying Gas/Electric Bills: No Difficulty Paying for Meds: No Currently Unemployed: No Education: Bachelor's Degree Difficulty w/ Childcare or Family Care: No Living arrangements: with family Spiritual care concerns: No Anes - Eval Final PreProcedure Day of Procedure 03/04/24 14:13 Patient weight: morbidly obese Heart: regular rate and rhythm Lungs: clear to auscultation Airway: Mallampati scale class II Neurological: alert and oriented Last oral intake: >/= 8 hours ASA classification: III Emergent: no Anesthetic plan: proceed Anesthesia type and monitoring: general LMA and standard monitoring Results Review: All pre-operative results and documents have been reviewed as part of the pre-operative evaluation. Informed Consent: The patient's anesthetic plan and its attendant risks and benefits were discussed with the patient/family/POA. Questions were solicited and answers provided to the satisfaction of the patient/family/POA.
[2024-03-04] MEDS: KETOROLAC 15 MG/ML VIAL (*BKC) IV PUSH (14:22)
[2024-03-04] MEDS: ACETAMINOPHEN 500 MG TABLET 1000 MG PO (14:22)
--- NOTE | 2024-03-04 14:54 | WPDHPUPDATE1 ---
History and Physical Update Update Date/Time: 03/04/24 14:54 History and Physical has been reviewed, including an updated exam of the patient. There are NO changes in the patient's condition. Risks, benefits, and alternatives have been discussed and questions answered. Patient agrees to proceed with procedure.
[2024-03-04] MEDS: ceFAZolin 2 GM/D5W 50 ML 2 GM/50 ML BAG IVPB (15:17)
[2024-03-04] MEDS: BUPIVACAINE/EPINEPHRINE 0.5% 50 ML VIAL 20 ML INFILTRATE (15:32)
--- NOTE | 2024-03-04 16:23 | P.OP_ITS ---
Procedure Note - Detailed Date of Procedure 03/04/24 Pre-op Diagnosis Left knee medial meniscus tear Post-op Diagnosis Same Procedure Performed Arthroscopic partial medial meniscectomy, left knee. Surgeon Emilio Khan MD Anesthesia General Findings Root tear posterior horn medial meniscus. 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 Lateral compartment normal. Medial femur chondromalacia grade 4, medial tibia grade 1. Lateral femur chondromalacia grade 0, lateral tibia grade 0. Description of Procedure The patient was identified and the surgical site confirmed and signed in the preoperative holding area. Antibiotics were started per protocol, and the patient was brought to the operative room and transferred to the OR table. A general anesthetic was administered. Supine position with the operative lower extremity position in the leg lorenzo after placement of a well padded tourniquet. The leg support was lowered and the contralateral limb was supported with a soft bolster. The knee was prepped and draped in the usual sterile fashion. A time-out was performed. The portal sites were marked and infiltrated with 0.5% Marcaine 20 mL. The limb was exsanguinated and the tourniquet inflated to 300 mL Hg. Standard inferolateral and inferomedial portals were established. Inflow was obtained with the saline pump. The camera was introduced. Diagnostic inspection of the joint was accomplished. The meniscus was debrided with the ar throscopic shaver and punches until stable. The radiofrequency probe was also used for further d?bridement. Small central lateral area of grade 4 chondromalacia with exposed bone, not amenable to microfracture due to thin surrounding cartilage. The arthroscopic instruments were removed. The tourniquet released and wounds closed with subcutaneous 4-0 Monocryl absorbable suture. Steri strips and a sterile dressing were applied. A light elastic wrap was placed. The patient was extubated and brought to the recovery room in stable condition. Estimated Blood Loss 1 Drains No Complications No immediate complications Condition Stable Disposition PACU [facility] Billing Surgery - Charge Forward: Surgery Billing
[2024-03-04] MEDS: ONDANSETRON INJ 4 MG/2 ML VIAL IV PUSH (16:30)
== END 2024-03-04 17:45 | disposition home or self-care (01) ==
PROVIDERS: Visit Provider Orthopaedic Surgery
PROC: (CPT 29870; principal; 2024-03-04 15:00)
DX: S83.242A Other tear of medial meniscus, current injury, left knee, initial encounter (principal); M94.262 Chondromalacia, left knee; M17.12 Unilateral primary osteoarthritis, left knee; X58.XXXA Exposure to other specified factors, initial encounter; F98.8 Other specified behavioral and emotional disorders with onset usually occurring in childhood and adolescence; D64.9 Anemia, unspecified; F41.9 Anxiety disorder, unspecified; F32.A Depression, unspecified; K58.9 Irritable bowel syndrome, unspecified; F41.0 Panic disorder [episodic paroxysmal anxiety]; E55.9 Vitamin D deficiency, unspecified; E66.01 Morbid (severe) obesity due to excess calories; Z68.41 Body mass index [BMI] 40.0-44.9, adult; Z79.891 Long term (current) use of opiate analgesic; Z98.890 Other specified postprocedural states; Z82.49 Family history of ischemic heart disease and other diseases of the circulatory system
CPT/HCPCS: 29881; A9270; J0690; J1100; J1885; J2250; J2405; J2704; J3010; J7120

== ENCOUNTER 2024-07-12 14:18 | Emergency (ER) | payer BC, SELFPAY ==
--- NOTE | 2024-07-12 14:23 | ED_ITS ---
HPI - General Adult General Chief complaint: Skin/Abscess/Foreign Body Stated complaint: lip swelling Time Seen by Provider: 07/12/24 14:21 Source: patient Mode of arrival: ambulatory Limitations: no limitations History of Present Illness HPI narrative: Patient is a 41-year-old female who presents with intermittent lip swelling over the past several months. Patient states she feels her lips are very dry and flaky and then feel like they are burning. Patient has used no new cosmetic products or soaps. States over the past week they of been swollen intermittently but more than normal. States she did have what appeared to be cold sores a week ago. Denies any sores in mouth, swelling to tongue or feeling like throat is closing. Related Data Home Medications ?Medication ?Instructions ?Recorded ?Confirmed ?Last Taken ?Type clonazepam 0.5 mg tablet 0.5 mg PO DAILY PRN Anxiety 12/14/20 04/15/24 Unknown History lisdexamfetamine 30 mg capsule 30 mg PO DAILY 02/26/24 04/15/24 Unknown History vortioxetine 10 mg tablet 10 mg PO DAILY 02/26/24 04/15/24 03/04/24 06:00 History (Trintellix) Allergies Allergy/AdvReac Type Severity Reaction Status Date / Time bupropion (From Wellbutrin) AdvReac Intermediate tremors Verified 07/12/24 15:22 Review of Systems Review of Systems: All systems reviewed & are unremarkable except as noted in HPI and below Constitutional: Constitutional: Denies body ache(s), Denies chills, Denies fatigue, Denies fever(s), Denies headache(s), Denies malaise and Denies weakness Eyes: Eyes: Denies blurry vision, Denies irritation and Denies loss of vision ENT: Denies otalgia, Denies headache(s), Denies nasal discharge, Denies sinus pain, Denies sore throat and Reports other (lip pain and swelling) Cardiovascular: Cardiovascular: Denies chest pain, Denies irregular heart rhythm and Denies dyspnea Respiratory: Respiratory: Denies dyspnea Gastrointestinal: Gastrointestinal: Denies abdominal pain, Denies melena, Denies hematochezia, Denies diarrhea, Denies nausea and Denies vomiting Musculoskeletal: Musculoskeletal: Denies back pain, Denies myalgias and Denies arthralgias Integumentary/Breasts: Skin/Breast: Denies pruritus and Denies rash Neurologic: Denies headache(s), Denies loss of vision and Denies weakness Psychiatric: Psychiatric: Reports no additional psychiatric complaints Endocrine: Endocrine: Denies fatigue PMFSH Past Medical History Medical History Irritable bowel syndrome (IBS) ADD (attention deficit disorder) Vitamin D deficiency Anemia Panic disorder Anxiety Depression Surgical History Surgical History History of tympanomastoidectomy (~03/2010) History of tympanomastoidectomy (~10/2006) History of ear surgery (~01/2005) by Dr. Aguila Hx of tonsillectomy Family History Family History Mother Heart disease Acute myocardial infarction Hypertension Rheumatoid arthritis Father Depression Anxiety Alcohol abuse Sibling Asthma Obesity Heart disease Social History Social History Smoking status: Never smoker Alcohol intake: never Alcohol use details: social 2 drinks/month Substance use: never Substance use type: does not use Do You Feel Safe in your Home?: Yes Lack of Transportation: No Lack of Food: Never True Current Housing: I Have Housing Concerned About Future Housing: No Difficulty Paying Gas/Electric Bills: No Difficulty Paying for Meds: No Currently Unemployed: No Education: Bachelor's Degree Difficulty w/ Childcare or Family Care: No Living arrangements: with family Spiritual care concerns: No Comments At time of signature, agree with nursing past medical, surgical, social and family history. There is no relevant family history pertinent to the presenting complaint. Exam Const: General: cooperative, healthy appearing, comfortable, no acute distress and well nourished Nutritional Appearance: well nourished Orientation/consciousness: patient oriented x3 Limitations: no limitations HENMT: Head: normal to inspection, normocephalic and atraumatic Ears: hearing grossly normal bilaterally and external ears normal Face/Nose/Sinus: Normal external nose present, normal facial exam and face symmetric Face and sinus: normal facial exam and face symmetric Mouth: Yes Normal oral and palatal mucosa present, Yes tongue normal, Yes Normal salivary glands and ducts present, Yes oropharynx normal, Yes moist mucous membranes, No drooling, Yes lip abnormal bilateral diffuse swelling and fissure, No malodorous breath, No muffled voice and No trismus Eyes: General: appearance normal, both eyes and all related structures Alignment and Position: alignment normal and position normal Periorbital: periorbital findings normal Eyelids: eyelids normal Pupils: Equal, round and reactive pupils present EOM: EOMs intact bilaterally Neck: Neck: normal visual inspection, full ROM and supple Chest: Chest palpation & inspection: normal inspection of the chest Resp: Effort & Inspection: normal respiratory effort and able to speak in complete sentences Auscultation: clear to auscultation bilaterally Cardio: Rate: regular rate Rhythm: regular rhythm Heart sounds: S1 normal heart sound present and S2 normal heart sound present GI: Inspection: normal to inspection Skin: General skin exam: normal color and no rashes or lesions noted Neuro: General: patient oriented x3 and moves all extremities Cranial nerves: Yes Equal, round and reactive pupils present Speech: normal speech Gait exam (Neuro): Normal gait present Extrem: General: normal to inspection, full ROM and no edema Psych: Appearance: grossly normal and well kempt Mental Status: mental status grossly normal Speech and movement: Normal speech and movement present Affect: normal affect Attitude: cooperative Thought process: Normal thought process present Course Course Emergency Course: Patient is aware of diagnosis, understands and agrees to treatment plan. Anticipatory guidance given. Patient agrees to follow-up as directed and is aware of reasons to seek care at the emergency department. Portions of this record may have been created with voice recognition software Level of Care: Express Care Visit Vital Signs Vital signs: Vital Signs Temperature 36.4 C L 07/12/24 14:44 Pulse Rate 69 07/12/24 14:44 Respiratory Rate 16 07/12/24 14:44 Blood Pressure 140/66 07/12/24 14:44 Pulse Oximetry 99 07/12/24 14:44 Oxygen Delivery Room Air 07/12/24 14:44 Temperature 36.4 C L 07/12/24 14:44 Pulse Rate 69 07/12/24 14:44 Respiratory Rate 16 07/12/24 14:44 Blood Pressure 140/66 07/12/24 14:44 Pulse Oximetry 99 07/12/24 14:44 Oxygen Delivery Room Air 07/12/24 14:44 Reviewed Medical Decision Making MDM Narrative Medical decision making narrative: Patient has a history of eczema. Patient states she uses multiple types of chapsticks frequently throughout the day. Patient has PCP appointment next week. Unable to get into a engineer technician until October. Discussed red flag signs of tongue or throat swelling requiring emergency department immediately. Patient denies that she is having any shortness of breath and has not had any for the length of symptoms. Pt well hydrated appearing, in no respiratory distress, hemodynamically stable. Recommend supportive care. The patient is stable at time of discharge the clinical impression was discussed and the patient was given the opportunity to ask questions, which were addressed as completely as possible given the information available at present. Anticipatory guidance and return to care precautions were discussed and the importance of primary care follow-up was stressed and encouraged. The patient voiced understanding of the plan, indicati ons to return, and the need for follow-up. Exam findings show no acute concerns or changes Patient is appropriate for outpatient treatment and follow-up. Differential Diagnosis Differential Diagnosis: cheilitis, dermatitis, cellulitis, herpes simplex, impetigo. less likely angio edema Medical Records Medical records reviewed: Yes I reviewed the external patient's medical records. Vital Signs Vital Signs: Vital Signs Temperature 36.4 C L 07/12/24 14:44 Pulse Rate 69 07/12/24 14:44 Respiratory Rate 16 07/12/24 14:44 Blood Pressure 140/66 07/12/24 14:44 Pulse Oximetry 99 07/12/24 14:44 Oxygen Delivery Room Air 07/12/24 14:44 Temperature 36.4 C L 07/12/24 14:44 Pulse Rate 69 07/12/24 14:44 Respiratory Rate 16 07/12/24 14:44 Blood Pressure 140/66 07/12/24 14:44 Pulse Oximetry 99 07/12/24 14:44 Oxygen Delivery Room Air 07/12/24 14:44 Reviewed Discharge Plan Discharge Clinical Impression: Eczematous cheilitis Patient Disposition: Home, Self-Care Condition: Stable Instructions: Eczema (ED) Additional Instructions: Apply steroid cream to lips twice a day for 1-2 weeks. In between uses apply only Aquaphor or Vaseline to lips. If you have any further swelling, swelling of tongue or feeling like throat is closing go straight to the emergency department. Patient Language: Omani Prescriptions: New triamcinolone acetonide 0.025 % cream 1 applic topical BID 14 Days Qty: 80 0RF No Action clonazepam 0.5 mg tablet 0.5 mg PO DAILY PRN (Reason: Anxiety) lisdexamfetamine 30 mg capsule 30 mg PO DAILY Trintellix 10 mg tablet 10 mg PO DAILY Follow-up/Referrals: PHYSICIAN,DRY CELL ASSEMBLY MACHINE TENDER [Primary Care Provider] - Time of Disposition: 16:30
--- OUTSIDE RECORDS SUMMARY | 2024-07-12 14:34 | XMS_ITS ---
Author Organization [facility] [employer] Address [address] [place] [address] Care Team Providers Care Trolley Worker Name Role Phone Andrew FLORKayy Primary Care Provider Reginald Villalpando Unavailable [phone] Allergies No Known Allergies REASON FOR VISIT follow-up, Elevated or Hypertensive blood pressure reading, Depression screening positive Medications Medication SIG (Take, Route, Frequency, Duration) Notes Start Date End Date Status clonazePAM 0.5 MG Oral 07/19/2023 A ctive Lisdexamfetamine Dimesylate 70 MG 1 capsule in the morning Orally Once a day for 30 days 06/18/2024 Active Social History Tobacco Use: Social History Observation Description Date Details (start date - stop date) Never Smoker NA - NA Sex Assigned At : Social History Observation Description Sex Assigned At Female Tobacco Control (Standard) Question Answer Notes Tobacco use: Nonsmoker Vital Signs Blood pressure systolic 156 mm Hg 06/18/19 25 Blood pressure diastolic 107 mm Hg 025 Heart Rate 76 /min 06/18/2024 Height 63.00 in 06/18/2024 Weight 250 lbs 06/18/2024 BMI 44.28 kg/m2 06/18/2024 Height-cm 160.02 cm 06/18/2024 Weight-kg 113.4 kg 06/18/2024 Encounters Encounter Location Date Provider Diagnosis [facility] [employer] [address] [place] [address] 06/18/2024 Reginald Schroeder Panic disorder [episodic paroxysmal anxiety] without agoraphobia F41.0 ; Generalized anxiety disorder F41.1 ; Major depressive disorder, recurrent, mild F33.0 and Attention-deficit hyperactivity disorder, combined type F90.2 Assessments Encounter Date Diagnosis (ICD Code) Assessment Notes Treatment Notes Treatment Clinical Notes Section Notes 06/18/2024 Panic disorder [episodic paroxysmal anxiety] without agoraphobia (ICD-10 - F41.0) cont clonazepam prn, 06/18/2024 Generalized anxiety disorder (ICD-10 - F41.1) cont counseling 06/18/2024 Major depressive disorder, recurrent, mild (ICD-10 - F33.0) cont counseling 06/18/2024 Attention-deficit hyperactivity disorder, combined type (ICD-10 - F90.2) Plan Of Treatment Medication Medication Name Sig Start Date Stop Date Notes Trintellix 20 MG 1 tablet Orally Once a day Lisdexamfetamine Dimesylate 70 MG 1 caps ule in the morning Orally Once a day for 30 days 06/18/2024 Treatment Notes Assessment Notes Panic disorder [episodic paroxysmal anxi ety] without agoraphobia cont clonazepam prn, Generalized anxiety disorder cont counse ling Major depressive disorder, recurrent, mi ld cont counseling Next Appt Details Follow Up: 4 Months, Reason: f/u adhd, depression Provider Name:Reginald peralta, 10/14/2024 09:00:00 AM, [address] [place] [address] [address] [facility], [address], [address], Progress Notes * SUBHA VILLADOB:1975 (49 yo F)Acc No.[id number]:06/18/2024 Patient: SUBHA KERNS Provider: MARLENE CONDE :1975 A ge:49 Y S ex:Female Date:06/18/2024 Address:[address] [place] [address] Pcp:Kayy Morales [facility] Subjective: * Chief Complaints: * 1 . Follow-up. 2. Elevated or Hypertensive blood pressure reading. 3. Depression screening positive. * HPI: D epression Screening: DOMINIK-7 (2018 Edition) F eeling nervous, anxious, or on edge M ore than half the days N ot being able to stop or control worrying?More than half the days W orrying too much about different things M ore than hafl the days T rouble relaxing S ever B eing so restless that it is hard to sit still N ot at all B ecoming easily annoyed or irritable M ore than half the days F eeling afraid as if something awful might happen S ever T otal DOMINIK-7 Score 1 0 I nterpretation of Total ( 10 to 14) Moderate [place]-Suicide Severity Rating Scale: Suicide Risk (CSRS-screener) i n the past one month Have you wished you were or wished you could go to sleep and not wake up? N o i n the past one month Have you actually had any thoughts of killing yourself? N o H ave you ever done anything, started to do anything, or prepared to do anything to end your life? N o D epression screening: PHQ-9 L ittle interest or pleasure in doing things?Several days F eeling down, depressed, or hopeless S ever T rouble falling or staying asleep, or sleeping too much N ot at all F eeling tired or having little energy M ore than half the days P oor appetite or overeating S ever F eeling bad about yourself or that you are a failure, or have let yourself or your family down S ever T rouble concentrating on things, such as reading the newspaper or watching television N ot at all M oving or speaking so slowly that other people could have noticed; or the opposite, being so fidgety or restless that you have been moving around a lot more than usual N ot at all T houghts that you would be better off or of hurting yourself in some way N ot at all T otal Score 6 I nterpretation M ild Depression Intervention D epression Screening Findings P ositve F ollow-Up for Depression M ental health treatment assessment, Patient follow-up to return when and if necessary S uicide Risk Assessment Performed _ A dditional Evaluation for Depression P sychiatric interview and evaluation N jonna of the standardized tool used for adult depression screening: P atient Health Questionnaire (PHQ-9) H istory of Presenting Problem: Anxiety h as tried buspirone. Depression h as tried escitalopram, sertraline, duloxetine. Feels the only thing that ever seemed to work was Wellbutrin, but last time she took it she had tremors and burning mouth syndrome.. ADHD A DHD Quality: u nable to concentrate; i mpulsive; h yperactive T iming of Symptoms: c hronic A DHD Context: i ncreased anxiety; o ngoing cognitive distortions A DHD Severity: m oderate A DHD Associated Symptoms Inattention: u nable to pay attention; p oorly organized; e asily distracted; f orgetful; d ifficulty focusing; d ifficulty processing information; d ifficulty following instructions A DHD Associated Symptoms Impulsivity: i nterrupts conversations/activities; b lurts out inappropriate comments; s hows emotion without restraint A DHD Associated Symptoms Hyperactivity: f idgets/squirms; e xcessive talking; c onstantly in motion; d ifficulty with quiet tasks/activities. Psychotherapy M matt Duron. P ast Medication history: lexapro sertraline-didnt do much, xanax-made sleepy, buspirone- did nothing, Concerta, Adderall xr, Duloxetine, Trintellix- burning mouth. * Medical History: P roblems: Anemia, Anxiety, Anxiety disorder, Attention deficit hyperactivity disorder, combined type, Attention deficit hyperactivity disorder, predominantly inattentive type, Depressive disorder, Diarrhea, Fatigue, Generalized anxiety disorder, Joint pain, Mild recurrent major depression, Moderate recurrent major depression, Obesity, Panic disorder, Premenstrual tension syndrome, Severe recurrent major depression without psychotic features, Vitamin D deficiency, ,. * Social History: T obacco Use: T obacco Control (Standard) T obacco use: N onsmoker M igrated Social History: M igrated Social History: Alcohol Intake: Occasional 04/22/2021,Tobacco Years: Never smoker 04/22/2021,Smoking Status: 0 04/19/2023. M iscellaneous: A dvance Care Planning A re you your own decision-maker Y es D o you have Power of Feeder Operator Automatic for Health or Medical? N o * Medications: T aking clonazePAM 0.5 MG Tablet Oral , Taking Lisdexamfetamine Dimesylate 30 MG Capsule 1 capsule in the morning Orally Once a day , Taking Trintellix 20 MG Tablet 1 tablet Orally Once a day , Medication List reviewed and reconciled with the patient * Allergies: N .K.D.A. Objective: * Vitals: B P:156/107mm Hg, HR:76/min, Wt:250lbs, Wt-k.4 kg, Ht: 63.00 in, Ht-cm: 160.02 cm, BMI:44.28Index, Body Surface Area: 2.24. Assessment: * Assessment: 1. P anic disorder [episodic paroxysmal anxiety] without agoraphobia - F41.0 (Primary) ? S pecify :Src Diagnosis Name: Panic disorder [episodic paroxysmal anxiety] 2 . G eneralized anxiety disorder - F41.1 3 . M ajor depressive disorder, recurrent, mild - F33.0 4 . A ttention-deficit hyperactivity disorder, combined type - F90.2 Plan: * Treatment: 2. G eneralized anxiety disorder Notes: cont counseling 3. M ajor depressive disorder, recurrent, mild Notes: cont counseling 4. A ttention-deficit hyperactivity disorder, combined type Refill Lisdexamfetamine Dimesylate Capsule, 70 MG, 1 capsule in the morning, Orally, Once a day, 30 days, 30 Capsule, Refills 0. * Procedure Codes: G 8950 PREHTN/HTN BP DOC INDCD F/U DOC, 19842 BEHAV ASSMT W/SCORE & DOCD/STAND INSTRUMENT, G8753 MOST RECENT SYSTOLIC BP >= 140MM HG, G8431 CLIN DEPRESSION SCREEN DOC * Preventive Medicine: Counseling: B P Management: FIRST HYPERTENSIVE BP READING FOLLOW-UP PLAN: F ollow-up 1 month Follow up with your PCP LIFESTYLE RECOMMENDATION: L ifestyle education REFERRAL TO ALTERNATIVE / PRIMARY CARE PROVIDER: R eferral to general medical service WEIGHT REDUCTION RECOMMENDATION: W eight-reducing diet education DIETARY RECOMMENDATIONS: D iet education Dietary Healthy-Heart Diet * Follow Up: 4 Months (Reason: f/u adhd, depression) * Billing Information: * Visit Code: 98719 OFFICE OUTPATIENT VISIT 25 MINUTES DETAILED HISTORY AND EXAM/MODERATE MEDICAL DECISION MAKING. * Procedure Codes: G8950 PREHTN/HTN BP DOC INDCD F/U DOC. 00127 BEHAV ASSMT W/SCORE & DOCD/STAND INSTRUMENT. G8753 MOST RECENT SYSTOLIC BP >= 140MM HG. G8431 CLIN DEPRESSION SCREEN DOC. * Electronic signature of Kathie edgroot MARLENE Schroeder on 07/12/2024 at 02:34 PM [employer] Sign off status: Pending * Provider: Melisa SCHROEDER PMHNP Date: 0 06/18/2024 Generated for Kristi cruz/Betzaida/Cecily on: 0 07/12/2024 02:34 PM [employer] History and Physical Notes * HPI (History of Present Illness) Category Sub-Category Detail Notes Category Not es History of Presenting Problem Anxiety has tried b uspirone Depression has tried escitalopr am, sertraline, duloxetine. Feels the only thing that ever seemed to work was Wellbutrin, but last time she took it she had tremors and burning mouth syndrome. ADHD ADHD Quality: unable to concentrate; impulsive; hyperactive Timing of Symptoms: chronic ADHD Context: increased anxiety; ongoing cognitive distortions ADHD Severity: moderate ADHD Associated Symptoms Inattention: unable to pay attention; poorly organized; easily distracted; forgetful; difficulty focusing; difficulty processing information; difficulty following instructions ADHD Associated Symptoms Impulsivity: interrupts conversations/activities; blurts out inappropriate comments; shows emotion without restraint ADHD Associated Symptoms Hyperactivity: fidgets/squirms; excessive talking; constantly in motion; difficulty with quiet tasks/activities Psychotherapy Fiordaliza Duron Depression screening PHQ-9 Little inte rest or pleasure in doing things: Several days Feeling down, depressed, or hopeless: Se veral days Trouble falling or staying asleep, or sl eeping too much: Not at all Feeling tired or having little energy: M ore than half the days Poor appetite or overeating: Several day s Feeling bad about yourself o r that you are a failure, or have let yourself or your family down: Several days Trouble concentrating on thi ngs, such as reading the newspaper or watching television: Not at all Moving or speaking so slowly that other people could have noticed; or the opposite, being so fidgety or restless that you have been moving around a lot more than usual: Not at all Thoughts that you would be b lius off or of hurting yourself in some way: Not at all Total Score: 6 Interpretation: Mild Depression Intervention Depression Screening Findings: P ositve Follow-Up for Depression: Me ntal health treatment assessment, Patient follow-up to return when and if necessary Suicide Risk Assessment Performed: Additional Evaluation for Depression: Ps ychiatric interview and evaluation Name of the standardized too l used for adult depression screening:: Patient Health Questionnaire (PHQ-9) Depression Screening DOMINIK-7 (2018 Edition) Feelin g nervous, anxious, or on edge: More than half the days Not being able to stop or control worryi ng: More than half the days Worrying too much about different things : More than hafl the days Trouble relaxing: Several days Being so restless that it is hard to sit still: Not at all Becoming easily annoyed or irritable: Mo re than half the days Feeling afraid as if something awful gonzalo ht happen: Several days Total DOMINIK-7 Score: 10 Interpretation of Total: (10 to 14) Mode rate [place]-Suicide Severity Rating Scale Suicide Risk (CSRS-screener) in the past one month Have you wished you were or wished you could go to sleep and not wake up?: No in the past one month Have y ou actually had any thoughts of killing yourself?: No Have you ever done anything, started to do anything, or prepared to do anything to end your life?: No
--- OUTSIDE RECORDS SUMMARY | 2024-07-12 14:34 | XMS_ITS ---
Author Organization [facility] [employer] Address [address] [place] [address] Care Team Providers Care Hemodialysis Lab Technician Name Role Phone Andrew FLORKayy Primary Care Provider Reginald Villalpando Unavailable [phone] Allergies No Known Allergies REASON FOR VISIT follow up visit, medication evaluation Medications Medication SIG (Take, Route, Frequency, Duration) Notes Start Date End Date Status Trintellix 20 MG 1 tablet Orally Once a day for 30 days Active clonazePAM 0.5 MG Oral 07/19/2023 A ctive Lisdexamfetamine Dimesylate 30 MG 1 capsule in the morning Orally Once a day for 30 days 03/21/2024 Active Social History Tobacco Use: Social History Observation Description Date Details (start date - stop date) Never Smoker NA - NA Sex Assigned At : Social History Observation Description Sex Assigned At Female Tobacco Control (Standard) Question Answer Notes Tobacco use: Nonsmoker Vital Signs Blood pressure systolic 132 mm Hg 03/21/20 24 Blood pressure diastolic 82 mm Hg 024 Heart Rate 84 /min 03/21/2024 Height 63.00 in 03/21/2024 Weight 250.0 lbs 03/21/2024 BMI 44.28 kg/m2 03/21/2024 Height-cm 160.02 cm 03/21/2024 Weight-kg 113.4 kg 03/21/2024 Encounters Encounter Location Date Provider Diagnosis [facility] [employer] [address] [place] [address] 03/21/2024 Reginald Schroeder Panic disorder [episodic paroxysmal anxiety] without agoraphobia F41.0 ; Generalized anxiety disorder F41.1 ; Major depressive disorder, recurrent, mild F33.0 and Attention-deficit hyperactivity disorder, combined type F90.2 Assessments Encounter Date Diagnosis (ICD Code) Assessment Notes Treatment Notes Treatment Clinical Notes Section Notes 03/21/2024 Panic disorder [episodic paroxysmal anxiety] without agoraphobia (ICD-10 - F41.0) cont clonazepam prn, Panic Attacks: Care Instructions material was published 1. Depression: - Patient reports improvement in mood after starting Trintellix 10 mg, with no side effects. However, some depressive symptoms persist. Plan: - Increase Trintellix to 20 mg daily. - Reassess mood and side effects in one month. 2. ADHD: - Patient is currently on Vyvanse and reports feeling more in control of thoughts but still experiencing some anxiety. - Patient does not want to increase the dose due to fear of exacerbating anxiety. Plan: - Maintain current Vyvanse dosage. - Monitor patient's anxiety and ADHD symptoms in future visits. Follow-up: - Schedule a follow-up appointment in one month to reassess mood, ADHD symptoms, and post-surgery recovery progress. 03/21/2024 Generalized anxiety disorder (ICD-10 - F41.1) cont counseling 1. Depression: - Patient reports improvement in mood after starting Trintellix 10 mg, with no side effects. However, some depressive symptoms persist. Plan: - Increase Trintellix to 20 mg daily. - Reassess mood and side effects in one month. 2. ADHD: - Patient is currently on Vyvanse and reports feeling more in control of thoughts but still experiencing some anxiety. - Patient does not want to increase the dose due to fear of exacerbating anxiety. Plan: - Maintain current Vyvanse dosage. - Monitor patient's anxiety and ADHD symptoms in future visits. Follow-up: - Schedule a follow-up appointment in one month to reassess mood, ADHD symptoms, and post-surgery recovery progress. 03/21/2024 Major depressive disorder, recurrent, mild (ICD-10 - F33.0) cont counseling 1. Depression: - Patient reports improvement in mood after starting Trintellix 10 mg, with no side effects. However, some depressive symptoms persist. Plan: - Increase Trintellix to 20 mg daily. - Reassess mood and side effects in one month. 2. ADHD: - Patient is currently on Vyvanse and reports feeling more in control of thoughts but still experiencing some anxiety. - Patient does not want to increase the dose due to fear of exacerbating anxiety. Plan: - Maintain current Vyvanse dosage. - Monitor patient's anxiety and ADHD symptoms in future visits. Follow-up: - Schedule a follow-up appointment in one month to reassess mood, ADHD symptoms, and post-surgery recovery progress. 03/21/2024 Attention-deficit hyperactivity disorder, combined type (ICD-10 - F90.2) 1. Depression: - Patient reports improvement in mood after starting Trintellix 10 mg, with no side effects. However, some depressive symptoms persist. Plan: - Increase Trintellix to 20 mg daily. - Reassess mood and side effects in one month. 2. ADHD: - Patient is currently on Vyvanse and reports feeling more in control of thoughts but still experiencing some anxiety. - Patient does not want to increase the dose due to fear of exacerbating anxiety. Plan: - Maintain current Vyvanse dosage. - Monitor patient's anxiety and ADHD symptoms in future visits. Follow-up: - Schedule a follow-up appointment in one month to reassess mood, ADHD symptoms, and post-surgery recovery progress. Plan Of Treatment Medication Medication Name Sig Start Date Stop Date Notes Trintellix 20 MG 1 tablet Orally Once a day for 30 days Lisdexamfetamine Dimesylate 30 MG 1 caps ule in the morning Orally Once a day for 30 days 03/21/2024 Treatment Notes Assessment Notes Panic disorder [episodic par oxysmal anxiety] without agoraphobia cont clonazepam prn, Panic Attacks: Care Instructions material was published Generalized anxiety disorder cont counse ling Major depressive disorder, recurrent, mi ld cont counseling Next Appt Details Follow Up: 4 Weeks, Reason: f/u depression, adhd Provider Name:Reginald peralta, 10/14/2024 09:00:00 AM, [address], [facility] [address], [place], [address], Progress Notes * SUBHA VILLADOB:1975 (49 yo F)Acc No.[id number]:03/21/2024 Patient: Val RAJSUBHA HARRIS Provider: HEMAL CONDEHNP :1975 A ge:48 Y S ex:Female Date:03/21/2024 Address:[address] [place], [place] [id number] Pcp:Kayy Morales [facility]- Subjective: * Chief Complaints: * F ollow up visit, medication evaluation * HPI: D epression Screening: Chief complaint- Depression the note is transcribed using speech recognition software. It is a reflection of a visit with the patient. It might have some inaccuracy, including medication names and transcribing errors, though efforts have been made to correct them. The patient reports that she started taking Trintellix since the last visit in February and has noticed some improvement in her depression symptoms. She initially started with a 10 mg dose due to difficulty breaking the pill in half and experienced no side effects. The patient mentions a subtle but noticeable improvement in her mood, particularly when interacting with her children. The patient is still experiencing some depression symptoms and recently underwent meniscus surgery. She reports having trouble with resting and elevating her leg post-surgery, leading to increased pain and swelling. However, after following her surgeon's advice and attending physical therapy, she has noticed an improvement in her condition. Regarding her Vyvanse medication, the patient feels that the current dosage is appropriate and does not want to increase it. She reports that at a higher dosage, she experienced increased anxiety and a more revved up feeling. The patient believes she is heading in a good direction with her current medication regimen. DOMINIK-7 (2018 Edition) F eeling nervous, anxious, or on edge?More than half the days, N ot being able to stop or control worrying S everal days,?Worrying too much about different things S everal days, T rouble relaxing S everal days, B eing so restless that it is hard to sit still N ot at all, B ecoming easily annoyed or irritable S everal days, F eeling afraid as if something awful might happen S everal days, T otal DOMINIK-7 Score 7 , I nterpretation of Total ( 5 to 9) Mild. C [place]-Suicide Severity Rating Scale: Suicide Risk (CSRS-screener) i n the past one month Have you wished you were or wished you could go to sleep and not wake up? N o, i n the past one month Have you actually had any thoughts of killing yourself? N o, H ave you ever done anything, started to do anything, or prepared to do anything to end your life? N o. D epression screening: PHQ-9 L ittle interest or pleasure in doing things S everal days, F eeling down, depressed, or hopeless S everal days, T rouble falling or staying asleep, or sleeping too much N ot at all, F eeling tired or having little energy M ore than half the days, P oor appetite or overeating M ore than half the days, F eeling bad about yourself or that you are a failure, or have let yourself or your family down M ore than half the days, T rouble concentrating on things, such as reading the newspaper or watching television M ore than half the days, M oving or speaking so slowly that other people could have noticed; or the opposite, being so fidgety or restless that you have been moving around a lot more than usual N ot at all, T houghts that you would be better off or of hurting yourself in some way N ot at all, T otal Score 1 0, I nterpretation M oderate Depression.?Intervention D epression Screening Findings P ositve, F ollow-Up for Depression [facility], Patient follow-up to return when and if necessary, S uicide Risk Assessment Performed 1 05/21/2023 , A dditional Evaluation for Depression?Psychiatric interview and evaluation, N jonna of the standardized tool used for adult depression screening: P atient Health Questionnaire (PHQ-9). H istory of Presenting Problem: Anxiety has tried buspirone. D epression has tried escitalopram, sertraline, duloxetine. Feels the only thing that ever seemed to work was Wellbutrin, but last time she took it she had tremors and burning mouth syndrome.. A DHD ADHD Quality: u nable to concentrate; i mpulsive; h yperactive Timing of Symptoms: c hronic ADHD Context: i ncreased anxiety; o ngoing cognitive distortions ADHD Severity: m oderate ADHD Associated Symptoms Inattention: u nable to pay attention; p oorly organized; e asily distracted; f orgetful; d ifficulty focusing; d ifficulty processing information; d ifficulty following instructions ADHD Associated Symptoms Impulsivity: i nterrupts conversations/activities; b lurts out inappropriate comments; s hows emotion without restraint ADHD Associated Symptoms Hyperactivity: f idgets/squirms; e xcessive talking; c onstantly in motion; d ifficulty with quiet tasks/activities. P sychotherapy M matt Duron. P ast Psychiatric Hospitalizations: lexapro sertraline-didnt do much, xanax-made sleepy, buspirone- did nothing, Concerta, Adderall xr, Duloxetine. P ast Medication history: lexapro sertraline-didnt do much, xanax-made sleepy, buspirone- did nothing, Concerta, Adderall xr, Duloxetine. * Medical History: * Surgical History: * Hospitalization/Major Diagno stic Procedure: * Social History: T obacco Use: T obacco Control (Standard) T obacco use: N onsmoker. M igrated Social History: M igrated Social History: Alcohol Intake: Occasional 04/22/2021,Tobacco Years: Never smoker 04/22/2021,Smoking Status: 0 04/19/2023. M iscellaneous: A dvance Care Planning A re you your own decision-maker Y es, D o you have Power of Nut Chopper for Health or Medical? N o. * Medications: T akingclonazePAM 0.5 MG Tablet Oral Lisdexamfetamine Dimesylate 30 MG Capsule 1 capsule in the morning Orally Once a day Trintellix 10 MG Tablet 0.5 tablet once a day for 7 days, 1 tablet once a day for 30 days Orally Once a day Medication List reviewed and reconciled with the patientTaking clonazePAM 0.5 MG Tablet Oral Taking Lisdexamfetamine Dimesylate 30 MG Capsule 1 capsule in the morning Orally Once a day Taking Trintellix 10 MG Tablet 0.5 tablet once a day for 7 days, 1 tablet once a day for 30 days Orally Once a day Medication List reviewed and reconciled with the patient * Allergies: N .K.D.A.no[Allergies Verified] Objective: * Vitals: B P:132/82mm Hg, HR:84/min, Wt:250.0lbs, Wt-k.4 kg, Ht: 63.00 in, Ht-cm: 160.02 cm, BMI:44.28Index, Body Surface Area: 2.24. * Examination: G eneral Examination: - Mental Status Examination: - Patient reports a subtle but noticeable improvement in mood since starting Trintellix, particularly in interactions with her children. She describes feeling a bit happier and less doomedly nervous. - No side effects from Trintellix were reported. - Patient still experiences some depressive symptoms, describing her overall mood as still somewhat low. - No cognitive impairments or thought process abnormalities were noted during the conversation. - Physical Examination: - Patient is 2 weeks post-operative from meniscus surgery. - Reports initial good recovery followed by increased pain and swelling due to inadequate rest and elevation in the second week post-surgery. - Improvement noted after resuming proper post-operative care and physical therapy. Assessment: * Assessment: 1. P anic disorder [episodic paroxysmal anxiety] without agoraphobia - F41.0 (Primary) ? S pecify :Src Diagnosis Name: Panic disorder [episodic paroxysmal anxiety] 2 . G eneralized anxiety disorder - F41.1 3 . M ajor depressive disorder, recurrent, mild - F33.0 4 . A ttention-deficit hyperactivity disorder, combined type - F90.2 1. Depression:- Patient repo rts improvement in mood after starting Trintellix 10 mg, with no side effects. However, some depressive symptoms persist.Plan:- Increase Trintellix to 20 mg daily.- Reassess mood and side effects in one month.2. ADHD:- Patient is currently on Vyvanse and reports feeling more in control of thoughts but still experiencing some anxiety.- Patient does not want to increase the dose due to fear of exacerbating anxiety.Plan:- Maintain current Vyvanse dosage.- Monitor patient's anxiety and ADHD symptoms in future visits.Follow-up:- Schedule a follow-up appointment in one month to reassess mood, ADHD symptoms, and post-surgery recovery progress. Plan: * Treatment: 2. G eneralized anxiety disorder Notes: cont counseling 3. M ajor depressive disorder, recurrent, mild Start Trintellix Tablet, 20 MG, 1 tablet, Orally, Once a day, 30 days, 30 Tablet, Refills 1. ? Notes: cont counseling 4. A ttention-deficit hyperactivity disorder, combined type Refill Lisdexamfetamine Dimesylate Capsule, 30 MG, 1 capsule in the morning, Orally, Once a day, 30 days, 30 Capsule, Refills 0. * Procedure Codes: 9 6127 BEHAV ASSMT W/SCORE & DOCD/STAND [id number] VISIT COMPLEXITY INHERENT TO ONGOING CARE RELATED TO A PATIENT'S SINGLE, SERIOUS CONDITION OR A COMPLEX CONDITION * Follow Up: 4 Weeks (Reason: f/u depression, adhd) * Billing Information: * Visit Code: 08090 OFFICE OUTPATIENT VISIT 25 MINUTES DETAILED HISTORY AND EXAM/MODERATE MEDICAL DECISION MAKING. * Procedure Codes: 30699 BEHAV ASSMT W/SCORE & DOCD/STAND INSTRUMENT. G2211 VISIT COMPLEXITY INHERENT TO ONGOING CARE RELATED TO A PATIENT'S SINGLE, SERIOUS CONDITION OR A COMPLEX CONDITION. * KNITTER Sign off status: Completed true * Provider: MARLENE CONDE Date: 05/21/2023 Generated for Kristi cruz/Betzaida/Cecily on: 0 07/12/2024 02:34 PM WARP KNITTER History and Physical Notes * HPI (History [...] half the days Poor appetite or overeating: More than h josé the days Feeling bad about yourself o r that you are a failure, or have let yourself or your family down: More than half the days Trouble concentrating on thi ngs, such as reading the newspaper or watching television: More than half the days Moving or speaking so slowly that other people could have noticed; or the opposite, being so fidgety or restless that you have been moving around a lot more than usual: Not at all Thoughts that you would be b luis off or of hurting yourself in some way: Not at all Total Score: 10 Interpretation: Moderate Depression Intervention Depression Screening Findings: P ositve Follow-Up for Depression: [facility] treatment assessment, Patient follow-up to return when and if necessary Suicide Risk Assessment Performed: 03/21 Additional Evaluation for De pression: Psychiatric interview and evaluation Name of the standardized too l used for adult depression screening:: Patient Health Questionnaire (PHQ-9) Depression Screening DOMINIK-7 (2018 Edition) Feelin g nervous, anxious, or on edge: More than half the days Not being able to stop or control worryi ng: Several days Worrying too much about different things : Several days Trouble relaxing: Several days Being so restless that it is hard to sit still: Not at all Becoming easily annoyed or irritable: Se veral days Feeling afraid as if something awful gonzalo ht happen: Several days Total DOMINIK-7 Score: 7 Interpretation of Total: (5 to 9) Mild [place]-Suicide Severity Rating Scale Suicide Risk (CSRS-screener) in the past one month Have you wished you were or wished you could go to sleep and not wake up?: No in the past one month Have y ou actually had any thoughts of killing yourself?: No Have you ever done anything, started to do anything, or prepared to do anything to end your life?: No Examination Category Sub-Category Detail Notes Category Not es General Examination - Mental Status Examination: - Patient reports a subtle but noticeable improvement in mood since starting Trintellix, particularly in interactions with her children. She describes feeling a bit happier and less doomedly nervous. - No side effects from Trintellix were reported. - Patient still experiences some depressive symptoms, describing her overall mood as still somewhat low. - No cognitive impairments or thought process abnormalities were noted during the conversation. - Physical Examination: - Patient is 2 weeks post-operative from meniscus surgery. - Reports initial good recovery followed by increased pain and swelling due to inadequate rest and elevation in the second week post-surgery. - Improvement noted after resuming proper post-operative care and physical therapy.
--- OUTSIDE RECORDS SUMMARY | 2024-07-12 14:34 | XMS_ITS | Patient Health Record ---
Author Organization [facility] Address [address] [facility] [address] [place] [address] Care Team Providers Care Sap Business Analyst Name Role Phone Kayy Multani Primary Care Provider Reginald Villalpando Unavailable [phone] Migration, Provider Unavailable Unavailable Allergies No Known Allergies Results Component Value Reference Range Notes UDT Reviewed date:02/20/2024 05:11:25 PM Interpretation: Performing Lab: Notes/Report: THC neg 0 - 50 ng/ml Cocaine neg 0 - 300 ng/ml Amphetamine pos 0 - 1000 ng/ml Buprenorphine (BUP) neg 0 - 10 ng/ml Secobarbital (Bar) neg 0 - 300 ng/ml Oxazepam (BZO) neg 0 - 300 ng/ml 9-vkpswbsawx-8,7-sxfnnxko-0,3-diphenylpyrrolidine (LORAINE P) neg 0 - 300 ng/ml Methamphetamine (MET) neg 0 - 1000 ng/ml Methylenedioxymethamphetamine (MDMA) neg 0 - 500 ng/ml Morphine (MOP 300/[id number]) neg 0 - 300 ng/ml Methadone (MTD) neg 0 - 300 ng/ml Phencyclidine (PCP) neg 0 - 25 ng/ml Nortriptyline (TCA) neg 0 - 1000 ng/ml Oxycodone neg 0 - 300 ng/ml x neg 0 - 300 ng/ml Reason For Referral No Information Medications Medication SIG (Take, Route, Frequency, Duration) Notes Start Date End Date Status clonazePAM 0.5 MG Oral 07/19/2023 A ctive Lisdexamfetamine Dimesylate 70 MG 1 capsule in the morning Orally Once a day for 30 days 06/18/2024 Active Immunizations Vaccine Route Administration Date Status Comme nts Tdap Unknown 12/28/2017 Administered Manuel Covid-19 Vaccine Unknown 05/12/2021 Administere d Social History Tobacco Use: Social History Observation Description Date Details (start date - stop date) Never Smoker NA - NA Sex Assigned At : Social History Observation Description Sex Assigned At Female Tobacco Control (Standard) Question Answer Notes Tobacco use: Nonsmoker Problems Problem Type SNOMED Code ICD Code Onset Dates Problem Status W/U Status Risk Notes Problem Mild recurrent major depression (85934654) Major depressive disorder, recurrent, mild (F33.0) 07/19/19 Active confirmed Problem Generalized anxiety disorder (70963277) Generalized anxiety disorder (F41.1) 07/19/19 Active confirmed Problem Attention deficit hyperactivity disorder, combined type (26069572) Attention-deficit hyperactivity disorder, combined type (F90.2) 08/31/19 Active confirmed Problem Panic disorder (849653552) Panic disorder [episodic paroxysmal anxiety] without agoraphobia (F41.0) 07/19/19 Active confirmed Vital Signs Heart Rate 76 /min 06/18/2024 Blood pressure diastolic 107 mm Hg 06/18/2024 Height-cm 160.02 cm 06/18/2024 Weight-kg 113.4 kg 06/18/2024 Height 63.00 in 06/18/2024 Blood pressure systolic 156 mm Hg 06/18/2024 Weight 250 lbs 06/18/2024 BMI 44.28 kg/m2 06/18/2024 Encounters Encounter Location Date Provider Diagnosis [facility] [facility] [address] [address] 06/18/2024 Reginald Schroeder Panic disorder [episodic paroxysmal anxiety] without agoraphobia F41.0 ; Generalized anxiety disorder F41.1 ; Major depressive disorder, recurrent, mild F33.0 and Attention-deficit hyperactivity disorder, combined type F90.2 [facility] [address] [address] 07/19/2023 Reginald Schroeder Morbid (severe) obesity due to excess calories E66.01 ; Attention-deficit hyperactivity disorder, predominantly inattentive type F90.0 ; Major depressive disorder, recurrent, mild F33.0 ; Generalized anxiety disorder F41.1 ; Panic disorder [episodic paroxysmal anxiety] without agoraphobia F41.0 and Obesity, unspecified E66.9 [facility], [facility] [address] [place] [address] [place] [address] 08/31/2023 Provider Migration Attention-deficit hyperactivity disorder, combined type F90.2 [facility], [facility] [address] [place] [address] [place] [address] 10/20/2023 Reginald Schroeder Panic disorder [episodic paroxysmal anxiety] without agoraphobia F41.0 ; Generalized anxiety disorder F41.1 ; Major depressive disorder, recurrent, mild F33.0 and Attention-deficit hyperactivity disorder, combined type F90.2 [facility], [facility] [address] [place] [address] [place] [address] 01/22/2024 Reginald Schroeder Panic disorder [episodic paroxysmal anxiety] without agoraphobia F41.0 ; Generalized anxiety disorder F41.1 ; Major depressive disorder, recurrent, mild F33.0 and Attention-deficit hyperactivity disorder, combined type F90.2 [facility], [facility] [address] [place] [address] [place] [address] 02/20/2024 Reginald Schroeder Panic disorder [episodic paroxysmal anxiety] without agoraphobia F41.0 ; Generalized anxiety disorder F41.1 ; Major depressive disorder, recurrent, mild F33.0 and Attention-deficit hyperactivity disorder, combined type F90.2 [facility] [address] [place] [address] [place] [address] 03/21/2024 Reginald Schroeder Panic disorder [episodic paroxysmal anxiety] without agoraphobia F41.0 ; Generalized anxiety disorder F41.1 ; Major depressive disorder, recurrent, mild F33.0 and Attention-deficit hyperactivity disorder, combined type F90.2 [facility], [facility] [address] [place] [address] [place] [address] 04/19/2024 Reginald Schroeder Panic disorder [episodic paroxysmal anxiety] without agoraphobia F41.0 ; Generalized anxiety disorder F41.1 ; Major depressive disorder, recurrent, mild F33.0 and Attention-deficit hyperactivity disorder, combined type F90.2 [facility] [address] [place] [address] [place] [address] 08/22/2023 Provider Migration [facility], [facility] [address] [facility] [address] [place] [address] 08/30/2023 Provider Migration [facility], [facility] [address] [facility] [address] [place] [address] 09/23/2023 Provider Migration [facility], [facility] [address] [facility] [address] [place] [address] 09/24/2023 Provider Migration Assessments Encounter Date Diagnosis (ICD Code) Assessment Notes Treatment Notes Treatment Clinical Notes Section Notes 07/19/2023 Morbid (severe) obesity due to excess calories (ICD-10 - E66.01) 07/19/2023 Obesity, unspecified (ICD-10 - E66.9) 07/19/2023 Major depressive disorder, recurrent, mild (ICD-10 - F33.0) 07/19/2023 Generalized anxiety disorder (ICD-10 - F41.1) 07/19/2023 Attention-defici t hyperactivity disorder, predominantly inattentive type (ICD-10 - F90.0) 07/19/2023 Panic disorder [episodic paroxysmal anxiety] without agoraphobia (ICD-10 - F41.0) 08/31/2023 Attention-defici t hyperactivity disorder, combined type (ICD-10 - F90.2) 10/20/2023 Generalized anxiety disorder (ICD-10 - F41.1) she has life stressors, mild depression and anxiety she stopped vyvanse not on daily medication, she does not want to take a daily medication right now cont clonazepam prn she is participating in counseling 10/20/2023 Panic disorder [episodic paroxysmal anxiety] without agoraphobia (ICD-10 - F41.0) cont clonazepam prn, Panic Attacks: Care Instructions material was published she has life stressors, mild depression and anxiety she stopped vyvanse not on daily medication, she does not want to take a daily medication right now cont clonazepam prn she is participating in counseling 01/22/2024 Panic disorder [episodic paroxysmal anxiety] without agoraphobia (ICD-10 - F41.0) cont clonazepam prn, Panic Attacks: Care Instructions material was published she has life stressors, mild depression and anxiety she stopped vyvanse not on daily medication, she does not want to take a daily medication right now cont clonazepam prn she is participating in counseling 1. ADHD: - Patient has a history of ADHD and has tried Vyvanse, Adderall, and Concerta in the past. She reports that Vyvanse helped with task management and organization but did not improve motivation for physical tasks or self-care. She stopped taking Vyvanse due to concerns about anger, but is considering restarting it. Plan: - Restart lisdexamfetamine (Vyvanse) at a lower dose of 30 mg. - Monitor for improvements in concentration, focus, motivation, and mood. - Follow up in one month. 2. Depression and Anxiety: - Patient reports situational depression and anxiety related to stressors at home. She has not been taking any antidepressants recently, although she has a prescription for duloxetine. Plan: - Encourage the patient to continue counseling to address stressors affecting her mood. - Consider discussing the potential benefits of restarting an antidepressant, such as duloxetine, at a future visit if symptoms persist or worsen. 3. Panic Attacks: - Patient has been using clonazepam as needed for panic attacks and reports that it has been helpful in reducing symptoms. Plan: - Continue clonazepam as needed for panic attacks. - Encourage the patient to utilize coping strategies and counseling to manage anxiety and panic symptoms. 4. Medication Management: - Patient has experienced difficulty obtaining a consistent supply of Vyvanse in the past, leading to frustration and gaps in treatment. Plan: - Prescribe the 30 mg dose of generic lisdexamfetamine to improve availability and reduce the likelihood of treatment interruptions. - Monitor the patient's experience with obtaining the medication and address any issues as needed. Follow-up: - Schedule a follow-up appointment in one month to assess the patient's response to the restarted lisdexamfetamine and discuss any ongoing concerns related to her mental health and medication management. 02/20/2024 Panic disorder [episodic paroxysmal anxiety] without agoraphobia (ICD-10 - F41.0) cont clonazepam prn, Panic Attacks: Care Instructions material was published 1. ADHD: - Patient reports some improvement with Vyvanse 30 mg, but not fully organized yet. No significant increase in anxiety noted. Plan: - Continue Vyvanse 30 mg daily. - Monitor for any changes in anxiety levels. 2. Depression: - Patient has a history of depression and has tried Wellbutrin, duloxetine, sertraline, and naproxen in the past with various side effects. Currently experiencing lethargy and lack of motivation. Plan: - Start Trintellix 5 mg daily for one week, then increase to 10 mg daily. - Follow up in one month. - Monitor for side effects, including stomach upset, sexual side effects, weight gain, or tiredness. 3. Anxiety: - Patient is currently on Klonopin for anxiety management. Plan: - Continue Klonopin as prescribed. - Monitor for any changes in anxiety levels, especially in relation to Vyvanse and Trintellix use. 4. Follow-up: - Schedule a follow-up appointment in one month to assess the effectiveness and tolerability of Trintellix and to monitor ADHD and anxiety symptoms. 03/21/2024 Panic disorder [episodic paroxysmal anxiety] without [...] mood, ADHD symptoms, and post-surgery recovery progress. 04/19/2024 Panic disorder [episodic paroxysmal anxiety] without agoraphobia (ICD-10 - F41.0) cont clonazepam prn, 1. Major Depressive Disorder: - Patient reports minimal improvement with the Trintellix increase to 20 mg daily. - Currently experiencing a busy season and recently attended her son's [employer] graduation. - Patient acknowledges that her enjoyment of the event was limited. Plan: - Continue Trintellix 20 mg daily for depression. - Reevaluate the effectiveness of the medication in two months during the follow-up appointment. 2. Attention Deficit Hyperactivity Disorder (ADHD): - Patient is currently on Vyvanse 30 mg daily and reports that it is working well for her ADHD symptoms. - She prefers the lower dose due to reduced anxiety compared to when she was on 70 mg. Plan: - Continue Vyvanse 30 mg daily for ADHD. - Monitor for any changes in anxiety levels or ADHD symptoms. 3. Medication refills: Plan: - Refill Trintellix 20 mg once a day for depression and Vyvanse 30 mg daily for ADHD. Follow-up: - Schedule a follow-up appointment in approximately two months to reevaluate the patient's progress, medication effectiveness, and overall well-being. 06/18/2024 Panic disorder [episodic paroxysmal anxiety] without agoraphobia (ICD-10 - F41.0) cont clonazepam prn, 06/18/2024 Generalized anxiety disorder (ICD-10 - F41.1) cont counseling 04/19/2024 Generalized anxiety disorder (ICD-10 - F41.1) cont counseling 1. Major Depressive Disorder: - Patient reports minimal improvement with the Trintellix increase to 20 mg daily. - Currently experiencing a busy season and recently attended her son's [employer] graduation. - Patient acknowledges that her enjoyment of the event was limited. Plan: - Continue Trintellix 20 mg daily for depression. - Reevaluate the effectiveness of the medication in two months during the follow-up appointment. 2. Attention Deficit Hyperactivity Disorder (ADHD): - Patient is currently on Vyvanse 30 mg daily and reports that it is working well for her ADHD symptoms. - She prefers the lower dose due to reduced anxiety compared to when she was on 70 mg. Plan: - Continue Vyvanse 30 mg daily for ADHD. - Monitor for any changes in anxiety levels or ADHD symptoms. 3. Medication refills: Plan: - Refill Trintellix 20 mg once a day for depression and Vyvanse 30 mg daily for ADHD. Follow-up: - Schedule a follow-up appointment in approximately two months to reevaluate the patient's progress, medication effectiveness, and overall well-being. 03/21/2024 Generalized anxiety disorder (ICD-10 - F41.1) [...] mood, ADHD symptoms, and post-surgery recovery progress. 02/20/2024 Generalized anxiety disorder (ICD-10 - F41.1) cont counseling 1. ADHD: - Patient reports some improvement with Vyvanse 30 mg, but not fully organized yet. No significant increase in anxiety noted. Plan: - Continue Vyvanse 30 mg daily. - Monitor for any changes in anxiety levels. 2. Depression: - Patient has a history of depression and has tried Wellbutrin, duloxetine, sertraline, and naproxen in the past with various side effects. Currently experiencing lethargy and lack of motivation. Plan: - Start Trintellix 5 mg daily for one week, then increase to 10 mg daily. - Follow up in one month. - Monitor for side effects, including stomach upset, sexual side effects, weight gain, or tiredness. 3. Anxiety: - Patient is currently on Klonopin for anxiety management. Plan: - Continue Klonopin as prescribed. - Monitor for any changes in anxiety levels, especially in relation to Vyvanse and Trintellix use. 4. Follow-up: - Schedule a follow-up appointment in one month to assess the effectiveness and tolerability of Trintellix and to monitor ADHD and anxiety symptoms. 01/22/2024 Generalized anxiety disorder (ICD-10 - F41.1) cont counseling she has life stressors, mild depression and anxiety she stopped vyvanse not on daily medication, she does not want to take a daily medication right now cont clonazepam prn she is participating in counseling 1. ADHD: - Patient has a history of ADHD and has tried Vyvanse, Adderall, and Concerta in the past. She reports that Vyvanse helped with task management and organization but did not improve motivation for physical tasks or self-care. She stopped taking Vyvanse due to concerns about anger, but is considering restarting it. Plan: - Restart lisdexamfetamine (Vyvanse) at a lower dose of 30 mg. - Monitor for improvements in concentration, focus, motivation, and mood. - Follow up in one month. 2. Depression and Anxiety: - Patient reports situational depression and anxiety related to stressors at home. She has not been taking any antidepressants recently, although she has a prescription for duloxetine. Plan: - Encourage the patient to continue counseling to address stressors affecting her mood. - Consider discussing the potential benefits of restarting an antidepressant, such as duloxetine, at a future visit if symptoms persist or worsen. 3. Panic Attacks: - Patient has been using clonazepam as needed for panic attacks and reports that it has been helpful in reducing symptoms. Plan: - Continue clonazepam as needed for panic attacks. - Encourage the patient to utilize coping strategies and counseling to manage anxiety and panic symptoms. 4. Medication Management: - Patient has experienced difficulty obtaining a consistent supply of Vyvanse in the past, leading to frustration and gaps in treatment. Plan: - Prescribe the 30 mg dose of generic lisdexamfetamine to improve availability and reduce the likelihood of treatment interruptions. - Monitor the patient's experience with obtaining the medication and address any issues as needed. Follow-up: - Schedule a follow-up appointment in one month to assess the patient's response to the restarted lisdexamfetamine and discuss any ongoing concerns related to her mental health and medication management. 10/20/2023 Major depressive disorder, recurrent, mild (ICD-10 - F33.0) cont counseling she has life stressors, mild depression and anxiety she stopped vyvanse not on daily medication, she does not want to take a daily medication right now cont clonazepam prn she is participating in counseling 02/20/2024 Major depressive disorder, recurrent, mild (ICD-10 - F33.0) cont counseling 1. ADHD: - Patient reports some improvement with Vyvanse 30 mg, but not fully organized yet. No significant increase in anxiety noted. Plan: - Continue Vyvanse 30 mg daily. - Monitor for any changes in anxiety levels. 2. Depression: - Patient has a history of depression and has tried Wellbutrin, duloxetine, sertraline, and naproxen in the past with various side effects. Currently experiencing lethargy and lack of motivation. Plan: - Start Trintellix 5 mg daily for one week, then increase to 10 mg daily. - Follow up in one month. - Monitor for side effects, including stomach upset, sexual side effects, weight gain, or tiredness. 3. Anxiety: - Patient is currently on Klonopin for anxiety management. Plan: - Continue Klonopin as prescribed. - Monitor for any changes in anxiety levels, especially in relation to Vyvanse and Trintellix use. 4. Follow-up: - Schedule a follow-up appointment in one month to assess the effectiveness and tolerability of Trintellix and to monitor ADHD and anxiety symptoms. 01/22/2024 Major depressive disorder, recurrent, mild (ICD-10 - F33.0) cont counseling she has life stressors, mild depression and anxiety she stopped vyvanse not on daily medication, she does not want to take a daily medication right now cont clonazepam prn she is participating in counseling 1. ADHD: - Patient has a history of ADHD and has tried Vyvanse, Adderall, and Concerta in the past. She reports that Vyvanse helped with task management and organization but did not improve motivation for physical tasks or self-care. She stopped taking Vyvanse due to concerns about anger, but is considering restarting it. Plan: - Restart lisdexamfetamine (Vyvanse) at a lower dose of 30 mg. - Monitor for improvements in concentration, focus, motivation, and mood. - Follow up in one month. 2. Depression and Anxiety: - Patient reports situational depression and anxiety related to stressors at home. She has not been taking any antidepressants recently, although she has a prescription for duloxetine. Plan: - Encourage the patient to continue counseling to address stressors affecting her mood. - Consider discussing the potential benefits of restarting an antidepressant, such as duloxetine, at a future visit if symptoms persist or worsen. 3. Panic Attacks: - Patient has been using clonazepam as needed for panic attacks and reports that it has been helpful in reducing symptoms. Plan: - Continue clonazepam as needed for panic attacks. - Encourage the patient to utilize coping strategies and counseling to manage anxiety and panic symptoms. 4. Medication Management: - Patient has experienced difficulty obtaining a consistent supply of Vyvanse in the past, leading to frustration and gaps in treatment. Plan: - Prescribe the 30 mg dose of generic lisdexamfetamine to improve availability and reduce the likelihood of treatment interruptions. - Monitor the patient's experience with obtaining the medication and address any issues as needed. Follow-up: - Schedule a follow-up appointment in one month to assess the patient's response to the restarted lisdexamfetamine and discuss any ongoing concerns related to her mental health and medication management. 10/20/2023 Attention-defici t hyperactivity disorder, combined type (ICD-10 - F90.2) she stopped vyvanse she has life stressors, mild depression and anxiety she stopped vyvanse not on daily medication, she does not want to take a daily medication right now cont clonazepam prn she is participating in counseling 03/21/2024 Major depressive disorder, recurrent, mild (ICD-10 [...] mood, ADHD symptoms, and post-surgery recovery progress. 04/19/2024 Major depressive disorder, recurrent, mild (ICD-10 - F33.0) cont counseling 1. Major Depressive Disorder: - Patient reports minimal improvement with the Trintellix increase to 20 mg daily. - Currently experiencing a busy season and recently attended her son's [employer] graduation. - Patient acknowledges that her enjoyment of the event was limited. Plan: - Continue Trintellix 20 mg daily for depression. - Reevaluate the effectiveness of the medication in two months during the follow-up appointment. 2. Attention Deficit Hyperactivity Disorder (ADHD): - Patient is currently on Vyvanse 30 mg daily and reports that it is working well for her ADHD symptoms. - She prefers the lower dose due to reduced anxiety compared to when she was on 70 mg. Plan: - Continue Vyvanse 30 mg daily for ADHD. - Monitor for any changes in anxiety levels or ADHD symptoms. 3. Medication refills: Plan: - Refill Trintellix 20 mg once a day for depression and Vyvanse 30 mg daily for ADHD. Follow-up: - Schedule a follow-up appointment in approximately two months to reevaluate the patient's progress, medication effectiveness, and overall well-being. 06/18/2024 Major depressive disorder, recurrent, mild (ICD-10 - F33.0) cont counseling 04/19/2024 Attention-defici t hyperactivity disorder, combined type (ICD-10 - F90.2) 1. Major Depressive Disorder: - Patient reports minimal improvement with the Trintellix increase to 20 mg daily. - Currently experiencing a busy season and recently attended her son's [employer] graduation. - Patient acknowledges that her enjoyment of the event was limited. Plan: - Continue Trintellix 20 mg daily for depression. - Reevaluate the effectiveness of the medication in two months during the follow-up appointment. 2. Attention Deficit Hyperactivity Disorder (ADHD): - Patient is currently on Vyvanse 30 mg daily and reports that it is working well for her ADHD symptoms. - She prefers the lower dose due to reduced anxiety compared to when she was on 70 mg. Plan: - Continue Vyvanse 30 mg daily for ADHD. - Monitor for any changes in anxiety levels or ADHD symptoms. 3. Medication refills: Plan: - Refill Trintellix 20 mg once a day for depression and Vyvanse 30 mg daily for ADHD. Follow-up: - Schedule a follow-up appointment in approximately two months to reevaluate the patient's progress, medication effectiveness, and overall well-being. 06/18/2024 Attention-defici t hyperactivity disorder, combined type (ICD-10 - F90.2) 03/21/2024 Attention-defici t hyperactivity disorder, combined type (ICD-10 - F90.2) [...] mood, ADHD symptoms, and post-surgery recovery progress. 02/20/2024 Attention-defici t hyperactivity disorder, combined type (ICD-10 - F90.2) 1. ADHD: - Patient reports some improvement with Vyvanse 30 mg, but not fully organized yet. No significant increase in anxiety noted. Plan: - Continue Vyvanse 30 mg daily. - Monitor for any changes in anxiety levels. 2. Depression: - Patient has a history of depression and has tried Wellbutrin, duloxetine, sertraline, and naproxen in the past with various side effects. Currently experiencing lethargy and lack of motivation. Plan: - Start Trintellix 5 mg daily for one week, then increase to 10 mg daily. - Follow up in one month. - Monitor for side effects, including stomach upset, sexual side effects, weight gain, or tiredness. 3. Anxiety: - Patient is currently on Klonopin for anxiety management. Plan: - Continue Klonopin as prescribed. - Monitor for any changes in anxiety levels, especially in relation to Vyvanse and Trintellix use. 4. Follow-up: - Schedule a follow-up appointment in one month to assess the effectiveness and tolerability of Trintellix and to monitor ADHD and anxiety symptoms. 01/22/2024 Attention-defici t hyperactivity disorder, combined type (ICD-10 - F90.2) she has life stressors, mild depression and anxiety she stopped vyvanse not on daily medication, she does not want to take a daily medication right now cont clonazepam prn she is participating in counseling 1. ADHD: - Patient has a history of ADHD and has tried Vyvanse, Adderall, and Concerta in the past. She reports that Vyvanse helped with task management and organization but did not improve motivation for physical tasks or self-care. She stopped taking Vyvanse due to concerns about anger, but is considering restarting it. Plan: - Restart lisdexamfetamine (Vyvanse) at a lower dose of 30 mg. - Monitor for improvements in concentration, focus, motivation, and mood. - Follow up in one month. 2. Depression and Anxiety: - Patient reports situational depression and anxiety related to stressors at home. She has not been taking any antidepressants recently, although she has a prescription for duloxetine. Plan: - Encourage the patient to continue counseling to address stressors affecting her mood. - Consider discussing the potential benefits of restarting an antidepressant, such as duloxetine, at a future visit if symptoms persist or worsen. 3. Panic Attacks: - Patient has been using clonazepam as needed for panic attacks and reports that it has been helpful in reducing symptoms. Plan: - Continue clonazepam as needed for panic attacks. - Encourage the patient to utilize coping strategies and counseling to manage anxiety and panic symptoms. 4. Medication Management: - Patient has experienced difficulty obtaining a consistent supply of Vyvanse in the past, leading to frustration and gaps in treatment. Plan: - Prescribe the 30 mg dose of generic lisdexamfetamine to improve availability and reduce the likelihood of treatment interruptions. - Monitor the patient's experience with obtaining the medication and address any issues as needed. Follow-up: - Schedule a follow-up appointment in one month to assess the patient's response to the restarted lisdexamfetamine and discuss any ongoing concerns related to her mental health and medication management. 10/20/2023 Other Learning About Stress material was published, Learning About Guided Imagery for Stress material was published, Learning About Progressive Muscle Relaxation for Stress material was published, Learning About Mindfulness for Stress material was published she has life stressors, mild depression and anxiety she stopped vyvanse not on daily medication, she does not want to take a daily medication right now cont clonazepam prn she is participating in counseling Plan Of Treatment Next Appt Details Provider Name:Reginald peralta, 10/14/2024 09:00:00 AM, [address], [address], [place], [address], Insurance Providers Payer Name Payer Address Payer Phone Subscriber Number Group Number Insured Name Patient Relationship to Insured Coverage Start Date Coverage End Date [facility] [address] [place] [address] [id number] MODESTO VILLA Spouse - patient is the spouse of the insured Medical (General) History Medical History History ICD Code Problems: Anemia Anxiety Anxiety disorder Attention deficit hyperactivity disorder , combined type Attention deficit hyperactivity disorder , predominantly inattentive type Depressive disorder Diarrhea Fatigue Generalized anxiety disorder Joint pain Mild recurrent major depression Moderate recurrent major depression Obesity Panic disorder Premenstrual tension syndrome Severe recurrent major depression withou t psychotic features Vitamin D deficiency , Surgical History Surgery Date(Month/Year) Endometr ablate thermal (92195) Tonsilectomy/adenoids 05/08/1980 Endometrial ablation (93377) 11/23/2008
--- OUTSIDE RECORDS SUMMARY | 2024-07-12 14:34 | XMS_ITS ---
Author Organization [facility] [employer] Address [address] [place] [address] Care Team Providers Care Tailer Off Name Role Phone Kayy Multani Primary Care Provider Reginald Villalpando Unavailable [phone] Allergies No Known Allergies REASON FOR VISIT 1 month f/u Medications Medication SIG (Take, Route, Frequency, Duration) Notes Start Date End Date Status clonazePAM 0.5 MG Oral 07/19/2023 A ctive Lisdexamfetamine Dimesylate 30 MG 1 capsule in the morning Orally Once a day for 30 days 04/19/2024 Active Trintellix 20 MG 1 tablet Orally Once a day for 30 days Active Social History Tobacco Use: Social History Observation Description Date Details (start date - stop date) Never Smoker NA - NA Sex Assigned At : Social History Observation Description Sex Assigned At Female Tobacco Control (Standard) Question Answer Notes Tobacco use: Nonsmoker Vital Signs Blood pressure systolic 142 mm Hg 04/19/20 24 Blood pressure diastolic 89 mm Hg 024 Heart Rate 72 /min 04/19/2024 Height 63.00 in 04/19/2024 Weight 252.2 lbs 04/19/2024 BMI 44.67 kg/m2 04/19/2024 Height-cm 160.02 cm 04/19/2024 Weight-kg 114.4 kg 04/19/2024 Encounters Encounter Location Date Provider Diagnosis [facility] [address] [place] [address] 04/19/2024 Reginald Schroeder Panic disorder [episodic paroxysmal anxiety] without agoraphobia F41.0 ; Generalized anxiety disorder F41.1 ; Major depressive disorder, recurrent, mild F33.0 and Attention-deficit hyperactivity disorder, combined type F90.2 Assessments Encounter Date Diagnosis (ICD Code) Assessment Notes Treatment Notes Treatment Clinical Notes Section Notes 04/19/2024 Panic disorder [episodic paroxysmal anxiety] without agoraphobia (ICD-10 - F41.0) cont clonazepam prn, 1. Major Depressive Disorder: - Patient reports minimal improvement with the Trintellix increase to 20 mg daily. - Currently experiencing a busy season and recently attended her son's [employer] basic training graduation. - Patient acknowledges that [...] patient's progress, medication effectiveness, and overall well-being. 04/19/2024 Generalized anxiety disorder (ICD-10 - F41.1) cont counseling 1. Major Depressive Disorder: - Patient reports minimal improvement with the Trintellix increase to 20 mg daily. - Currently experiencing a busy season and recently attended her son's [employer] basic training graduation. - Patient acknowledges that [...] patient's progress, medication effectiveness, and overall well-being. 04/19/2024 Major depressive disorder, recurrent, mild (ICD-10 - F33.0) cont counseling 1. Major Depressive Disorder: - Patient reports minimal improvement with the Trintellix increase to 20 mg daily. - Currently experiencing a busy season and recently attended her son's [employer] basic training graduation. - Patient acknowledges that [...] patient's progress, medication effectiveness, and overall well-being. 04/19/2024 Attention-deficit hyperactivity disorder, combined type (ICD-10 - F90.2) 1. Major Depressive Disorder: - Patient reports minimal improvement with the Trintellix increase to 20 mg daily. - Currently experiencing a busy season and recently attended her son's [employer] basic training graduation. - Patient acknowledges that [...] patient's progress, medication effectiveness, and overall well-being. Plan Of Treatment Medication Medication Name Sig Start Date Stop Date Notes Lisdexamfetamine Dimesylate 30 MG 1 caps ule in the morning Orally Once a day for 30 days 04/19/2024 Trintellix 20 MG 1 tablet Orally Once a day for 30 days Treatment Notes Assessment Notes Panic disorder [episodic paroxysmal anxi ety] without agoraphobia cont clonazepam prn, Generalized anxiety disorder cont counse ling Major depressive disorder, recurrent, mi ld cont counseling Next Appt Details Follow Up: 2 Months, Reason: f/u adhd, depression Provider Name:Reginald peralta, 10/14/2024 09:00:00 AM, [address], [facility] [address], [place], [address], Progress Notes * SUBHA VILLADOB:1975 (49 yo F)Acc No.[id number]:04/19/2024 Patient: SUBHA KERNS Provider: MARLENE CONDE :1975 A ge:49 Y S ex:Female Date:04/19/2024 Address:[address] [place], [place] [id number] Pcp:Kayy Morales [facility] Subjective: * Chief Complaints: * 1 month f/u * HPI: D epression Screening: the note is transcribed using speech recognition software. It is a reflection of a visit with the patient. It might have some inaccuracy, including medication names and transcribing errors, though efforts have been made to correct them. Chief complaint- Depression, ADHD symptoms. The patient reports that the Trintellix increase did not seem to have a significant effect on her depression symptoms. She experienced stomach pain for a few days, but it subsided. The patient is unsure if her depression has improved due to the busy season and recent events, such as her son's [employer] graduation. She mentions that she might be marginally better at pretending to enjoy things but still lacks genuine enjoyment. The patient is currently on Trintellix 20 mg and Vyvanse 30 mg for depression and ADHD symptoms, respectively. She believes that the Vyvanse 70 mg was more effective for her ADHD symptoms but caused increased anxiety. The patient is hesitant to increase the Vyvanse dosage due to concerns about anxiety returning. The patient is still recovering from a meniscus tear surgery and has been from her usual activities during the recovery process. She hopes that returning to her normal routine will help improve her mental health. The patient's surgeon informed her that her type of meniscus tear takes longer to heal and that she may continue to experience pain, swelling, and mobility issues. The patient is considering resuming physical therapy after the holiday season. DOMINIK-7 (2018 Edition) F eeling nervous, anxious, or on edge?More than half the days, N ot being able to stop or control worrying M ore than half the days, W orrying too much about different things S everal days, T rouble relaxing S everal days, B eing so restless that it is hard to sit still N ot at all, B ecoming easily annoyed or irritable S everal days, F eeling afraid as if something awful might happen Several days, T otal DOMINIK-7 Score 8 , I nterpretation of Total ( 5 to 9) Mild.? [place]-Suicide Severity Rating Scale: Suicide Risk [...] the days, P oor appetite or overeating S everal days, F eeling bad about yourself or that you are a failure, or have let yourself or your family down S everal days, T rouble concentrating on things, such as reading the newspaper or watching television N ot at all, M oving or speaking so slowly that other people could have noticed; or the opposite, being so fidgety or restless that you have been moving around a lot more than usual N ot at all, T houghts that you would be better off or of hurting yourself in some way N ot at all, T otal Score 6 , I nterpretation M ild Depression. I ntervention D epression Screening Findings P ositve, F ollow-Up for Depression M entoh health treatment assessment, Patient follow-up to return when and if necessary, S uicide Risk Assessment Performed 1 06/20/2023 , A dditional Evaluation for Depression P sychiatric interview and evaluation, N jonna of the standardized tool used for adult depression screening: [facility] H istory of Presenting [...] P sychotherapy M matt Duron. P ast Medication history: [...] es, D o you have Power of Vascular Manager for Health or Medical? N o. * Medications: T akingclonazePAM 0.5 MG Tablet Oral Lisdexamfetamine Dimesylate 30 MG Capsule 1 capsule in the morning Orally Once a day Trintellix 20 MG Tablet 1 tablet Orally Once a day Medication List reviewed and reconciled with the patientTaking clonazePAM 0.5 MG Tablet Oral Taking Lisdexamfetamine Dimesylate 30 MG Capsule 1 capsule in the morning Orally Once a day Taking Trintellix 20 MG Tablet 1 tablet Orally Once a day Medication List reviewed and reconciled with the patient * Allergies: N .K.D.A.no[Allergies Verified] Objective: * Vitals: B P:142/89mm Hg, HR:72/min, Wt:252.2lbs, Wt-k.4 kg, Ht: 63.00 in, Ht-cm: 160.02 cm, BMI:44.67Index, Body Surface Area: 2.25. * Examination: P sychiatry: Appearance: w ell-groomed, well-nourished, ..., obese, walks with a cane. Affect / mood: a ppropriate, full range. Attention: c hanges topic in conversation. Attitude: c ooperative. Suicidal ideation: n one. Memory status: n o impairment noted. Degree of awareness of surroundings: w ithin normal limits.? Delusions: n o. Hallucinations: n o. Insight: g ood. Intellectual functioning: n o impairment noted. Judgement: g ood. Orientation: a wake, alert and oriented x 3. Perceptual disorders: n o perceptual disorder noted. Psychomotor activity: w ithin normal range. Speech / language: a ppropriate pitch/modulation, clear and coherent, normal rate, volume, and articulation (RVR), proper grammar used, pauses in conversation.? Thought content: a ppropriate. Thought process: i ntact. G eneral Examination: - Mental Status Examination: - Patient reports unchanged depressive symptoms despite medication adjustment. - Expressed limited enjoyment during significant life event. - Reports effort to pretend enjoyment, indicating possible anhedonia. - No overt signs of anxiety or agitation observed during the visit. - Physical Examination: - Patient is in the recovery phase post-meniscus surgery. - Reports ongoing pain, swelling, and mobility issues related to the surgical site. Assessment: * Assessment: 1. P anic disorder [episodic paroxysmal anxiety] without agoraphobia - F41.0 (Primary) ? S pecify :Src Diagnosis Name: Panic disorder [episodic paroxysmal anxiety] 2 . G eneralized anxiety disorder - F41.1 3 . M ajor depressive disorder, recurrent, mild - F33.0 4 . A ttention-deficit hyperactivity disorder, combined type - F90.2 1. Major Depressive Disorder:- Patient reports minimal improvement with the Trintellix increase to 20 mg daily.- Currently experiencing a busy season and recently attended her son's [employer] graduation.- Patient acknowledges that her enjoyment of the event was limited.Plan:- Continue Trintellix 20 mg daily for depression.- Reevaluate the effectiveness of the medication in two months during the follow-up appointment.2. Attention Deficit Hyperactivity Disorder (ADHD):- Patient is currently on Vyvanse 30 mg daily and reports that it is working well for her ADHD symptoms.- She prefers the lower dose due to reduced anxiety compared to when she was on 70 mg.Plan:- Continue Vyvanse 30 mg daily for ADHD.- Monitor for any changes in anxiety levels or ADHD symptoms.3. Medication refills:Plan:- Refill Trintellix 20 mg once a day for depression and Vyvanse 30 mg daily for ADHD.Follow-up:- Schedule a follow-up appointment in approximately two months to reevaluate the patient's progress, medication effectiveness, and overall well-being. Plan: * Treatment: 2. G eneralized anxiety disorder Notes: cont counseling 3. M ajor depressive disorder, recurrent, mild Refill Trintellix Tablet, 20 MG, 1 tablet, Orally, Once a day, 30 days, 30 Tablet, Refills 1. ? Notes: cont counseling 4. A ttention-deficit hyperactivity disorder, combined type Refill Lisdexamfetamine Dimesylate Capsule, 30 MG, 1 capsule in the morning, Orally, Once a day, 30 days, 30 Capsule, Refills 0. * Procedure Codes: 9 6127 BEHAV ASSMT W/SCORE & DOCD/STAND INSTRUMENT * Preventive Medicine: Counseling: B P Management: F IRST HYPERTENSIVE BP READING FOLLOW-UP PLAN: F ollow-up 1 month Follow up with your PCP, Kylah FERRARO RECOMMENDATION: Kylah ferraro education, REFERRAL TO ALTERNATIVE / PRIMARY CARE PROVIDER: R eferral to general medical service Recommended Nonpharmacologic Interventions (Lifestyle Modifications) - Weight ReductionA heart-healthy diet , such as Dietary Approaches to Stop Hypertension (DASH) Eating PlanDietary Sodium RestrictionIncreased Physical ActivityModeration in alcohol consumption. * Follow Up: 2 Months (Reason: f/u adhd, depression) * Billing Information: * Visit Code: 74111 OFFICE OUTPATIENT VISIT 25 MINUTES DETAILED HISTORY AND EXAM/MODERATE MEDICAL DECISION MAKING. * Procedure Codes: 78061 BEHAV ASSMT W/SCORE & DOCD/STAND INSTRUMENT. * INSTRUCTOR Sign off status: Completed true * Provider: MARLENE CONDE Date: 06/20/2023 Generated for Kristi cruz/Btezaida/eTalan on: 0 07/12/2024 02:34 PM JUDO INSTRUCTOR History and Physical Notes * HPI (History [...] Mild Depression Intervention Depression Screening Findings: P osjanette Follow-Up for Depression: [facility] treatment assessment, Patient follow-up to return when and if necessary Suicide Risk Assessment Performed: 04/19 Additional Evaluation for De pression: Psychiatric interview [...] ht happen: Several days Total DOMINIK-7 Score: 8 Interpretation of Total: (5 to 9) Mild [place]-Suicide Severity Rating Scale Suicide Risk (CSRS-screener) in [...] Category Sub-Category Detail Notes Category Not es Psychiatry Appearance: well-groomed, we ll-nourished, ..., obese, walks with a cane Attitude: cooperative Psychomotor activity: within normal rang e Attention: changes topic in con versation Degree of awareness of surroundings: wit hin normal limits Orientation: awake, alert and ryan ented x 3 Affect / mood: appropriate, full ra nge Speech / language: appropriate pitch/mo dulation, clear and coherent, normal rate, volume, and articulation (RVR), proper grammar used, pauses in conversation Insight: good Judgement: good Thought process: intact Thought content: appropriate Perceptual disorders: no perceptual diso rder noted Suicidal ideation: none Intellectual functioning: no impairment noted Memory status: no impairment noted Delusions: no Hallucinations: no General Examination - Mental Status Examination: - Patient reports unchanged depressive symptoms despite medication adjustment. - Expressed limited enjoyment during significant life event. - Reports effort to pretend enjoyment, indicating possible anhedonia. - No overt signs of anxiety or agitation observed during the visit. - Physical Examination: - Patient is in the recovery phase post-meniscus surgery. - Reports ongoing pain, swelling, and mobility issues related to the surgical site.
--- OUTSIDE RECORDS SUMMARY | 2024-07-12 14:34 | XMS_ITS | Clinical Summary ---
Author Organization [facility] Address [address] [place] [phone] Phone Care Team Providers Care Upholsterer Inside Name Role Phone Janette Sanchez MD Primary Care Provider [phone] Social History Tobacco Use Types Packs/Day Years Used Date Smoking Tobacco: Never Assessed Comments Unknown Sex and Gender Information Value Date Recorded Sex Assigned at Not on file Legal Sex Female 8:48 AM CDT Gender Identity Not on file Sexual Orientation Not on file Plan of Treatment Health Maintenance Due Date Last Done Comments DTAP/TDAP/TD VACCINES (1 - Tdap) 1995 HEPATITIS B VACCINES (1 of 3 - 19+ 3-dose series) 1995 CERVICAL CANCER SCREENING 2006 BREAST CANCER SCREENING 2016 COLORECTAL SCREENING 2021 Colorectal Cancer Screening 2021 FIT-DNA Q 3 years 2021 FIT/FOBT Q 1 year 2021 Flex Sig/CT Colonography Q 5 years 2021 INFLUENZA VACCINE (#1) 2023 PNEUMOCOCCAL VACCINE 0-49 YEARS Aged Out No longer eligible based on patient's age to complete this topic Insurance BCBS BLUE ACCESS/TRUE BLUE PPO Care Teams Upholsterer Inside Relationship Specialty Start Date End Date Janette Sanchez MD [address] [address] PCP - General 04/24/15
--- OUTSIDE RECORDS SUMMARY | 2024-07-12 14:37 | XMS_ITS | Clinical Summary ---
Author Organization [facility] Address [address] [place] [address] Care Team Providers Care Twisthand Name Role Phone Unavailable Primary Care Provider Unavailabl e Social History Tobacco Use Types Packs/Day Years Used Date Smoking Tobacco: Never Assessed Comments Unknown Sex and Gender Information Value Date Recorded Sex Assigned at Not on file Legal Sex Female 8:05 AM CDT Gender Identity Not on file Sexual Orientation Not on file Last Filed Vital Signs Vital Sign Reading Time Taken Comments Blood Pressure 116/68 05/22/2013 9:31 AM SCALE ADJUSTER Pulse 74 05/22/2013 9:31 AM SCALE ADJUSTER Temperature - - Respiratory Rate - - Oxygen Saturation - - Inhaled Oxygen Concentration - - Weight 105.2 kg (232 lb) 05/22/2013 9:31 AM SCALE ADJUSTER Height 162.6 cm (5' 4 ) 05/22/2013 9:31 AM SCALE ADJUSTER Body Mass Index 39.82 05/22/2013 9:31 AM SCALE ADJUSTER Plan of Treatment Health Maintenance Due Date Last Done Comments Cervical Cancer Screening Pa p Smear (Age 30 to 64) Every 3 Years 1976 Colorectal Cancer Screening Colonoscopy (10 Years) 1976 Annual Physical 1979 Hepatitis C 1994 DTaP, Tdap and Td Vaccines ( 1 - Tdap) 1995 Hepatitis B Vaccines (1 of 3 - 19+ 3-dose series) 1995 Cervical Cancer Screening Pa p with HPV Testing (Age 30 to 64) Every 5 Years 2006 Cervical Cancer Screening with HPV 2006 Mammogram Screening 2016 COVID-19 Vaccine ( - 2023-2 5 season) 2024 Influenza Adult (#1) 2024 Meningococcal B Vaccine Aged Out No l onger eligible based on patient's age to complete this topic Meningococcal Vaccine Aged Out No radha yao eligible based on patient's age to complete this topic Pneumococcal Vaccine: Pediat rics (0 to 5 Years) and At-Risk Patients (6 to 64 Years) Aged Out No longer eligible b ased on patient's age to complete this topic RSV Immunizations Under 20 Months Aged Out No longer eligible based on patient's age to complete this topic Advance Directives Documents on File Type Date Recorded Patient Self Contained Behavior Unit Teacher Expl anation Advance Directives and Living Will 05/07/2013 12:00 AM ADVANCED DIRECTIVES
[2024-07-12 14:44] VITALS: BP 140/66; PULSE 69; RESP 16; TEMP 36.4; O2SAT 99
== END 2024-07-12 16:31 | disposition home or self-care (01) ==
PROVIDERS: Emergency Provider Nurse Practitioner Family
DX: K13.0 Diseases of lips (principal)
CPT/HCPCS: 99213; G0463

== ENCOUNTER 2025-02-04 11:27 | Outpatient (CLI) | payer BC, SELFPAY ==
--- NOTE | ~2025-02-04 | US_ITS ---
EXAMINATION: US pelvic complete w TV, 02/04/2025 11:29 CDT HISTORY: Pelvic pain Comparison: None Technique: Kimble-scale and color Doppler images were obtained. Findings: Uterus: Uterus anteverted 9.4 x 4.1 x 4.8 cm, possible fibroid inferior uterine body 4.8 x 4.2 x 3.9 cm, there are some cervical nabothian cysts the largest 1.2 x 1.2 cm. . Endometrium 10 mm. Right Ovary:Right ovary 2.9 x 2.4 x 3.6 cm, no adnexal mass, normal flow. Left Ovary: Left ovary 2.3 x 2.7 x 2.6 cm, no adnexal mass, normal flow. Free Fluid: None Impression: Probable large uterine fibroid detailed above which appears partially submucosal. Contrast-enhanced MRI is suggested to assess Reviewed, dictated and finalized at location P. Impression: Probable large uterine fibroid detailed above which appears partially submucosa l. Contrast-enhanced MRI is suggested to assess
== END 2025-02-04 11:28 | disposition home or self-care (01) ==
LOC: MICIMG 11:28
PROVIDERS: PCP Nurse Practitioner Family; Visit Provider Nurse Practitioner
DX: R10.2 Pelvic and perineal pain (principal)
CPT/HCPCS: 76830; 76856

== ENCOUNTER 2025-03-06 14:36 | Outpatient (CLI) | payer BC, SELFPAY ==
--- NOTE | ~2025-03-06 | MR_ITS ---
EXAMINATION: MR pelvis wo/w con DATE: 03/06/2025 15:54 INDICATION: Uterine fibroid TECHNIQUE: Magnetic resonance imaging (MRI) of the pelvis was performed without and with 20 mL Multihance intravenous contrast. Fullfield sequences of the pelvis included axial and coronal T2-weighted SS FSE, coronal 2D FIESTA, axial T1-weighted FSPGR, axial dual-echo T1-weighted FSPGR and axial T1 weighted LAVA. Small field of view sequences included axial, sagittal and coronal T2-weighted FSE centered on the uterus and adnexa. Postcontrast sequences included a time course axial T1-weighted LAVA with full-field of view of the pelvis. COMPARISON: Ultrasound dated 02/04/2025 FINDINGS: Heterogeneously enhancing fibroid in the posterior uterine fundus which measures 4.4 x 4.2 x 3.9 cm. Normal endometrial complex measuring 8 mm in thickness. There are multiple T2 hyperintense nonenhancing nabothian cysts at the cervix measuring up to 1.1 cm. 1.5 similar peripherally enhancing corpus luteum cyst in the left ovary. Right ovary is unremarkable. Bladder and visualized portion of the bowels are unremarkable. Small amount of likely physiologic free fluid in the cul-de-sac. No pathologically enlarged pelvic or inguinal lymphadenopathy. Bones are unremarkable with normal marrow signal throughout. IMPRESSION: 1. 4.4 cm uterine fibroid and multiple nabothian cysts at the cervix. Reviewed, dictated and finalized at location A.
== END 2025-03-06 14:37 | disposition home or self-care (01) ==
LOC: MICIMG 14:38
PROVIDERS: PCP Nurse Practitioner Family; Visit Provider Obstetrics & Gynecology Gynecology
DX: N88.8 Other specified noninflammatory disorders of cervix uteri (principal); D25.9 Leiomyoma of uterus, unspecified
CPT/HCPCS: 72197; A9577

== ENCOUNTER 2025-03-31 02:15 | Day surgery (SDC) | payer BC, SELFPAY ==
[2025-03-21 10:21] VITALS: BMI 44.4
--- NOTE | 2025-03-21 10:23 | PC.NURSE ---
[facility] has started construction of its new state of the art ER which will open Spring 2026. With this, we anticipate parking may be a challenge for some our surgical patients and families. Parking spaces are limited but are available for all Surgical, obstetrics, and ER patients sharing this lot. If you arrive and find you are having a hard time finding a parking space, please note that we understand the challenges, please drive around the hospital and park near Hospital Entrance 1. When you enter this entrance, you can ask a volunteer to direct or take you back to the surgical waiting area to check in. We appreciate everyone?s understanding of these expected challenges while we build for your future. Report to the Outpatient Waiting Room, entrance under the green pavilion located off [address], at time _0615_ on date _[phone]_. Planned Procedure Time: _0815_.? Time changes happen often and if your time is changed the preop area will call you the afternoon before. - You and your visitor will be asked to self-screen and do not enter if you have any COVID symptoms. Please call surgeon if you need to reschedule. - A mask is optional within the hospital at this time. Patients may have clear liquids (water, carbonated beverages, clear teas, apple juice) until 3 hours prior to surgery with a maximum of 20 ounces. - No food from midnight until time of surgery and no smoking, or chewing tobacco (or any form of nicotine). No chewing gum, candy or mints. Take only the following medications with a SIP of water on the morning of surgery: ___Auvelity____ DO NOT STOP ANY OF YOUR OTHER PRESCRIPTION MEDICATIONS PRIOR TO SURGERY EXCEPT THE FOLLOWING Hold all vitamins and supplements for 3 days per anesthesiologist. Medications to discontinue per physician Date to take last dose Please no make-up, nail yoruba, hairspray, perfume, deodorant, or body powder the day of surgery.? No jewelry (including any body piercings) or valuables the day of surgery, leave them at home.? Please take a shower or bath the night before, or the morning of, surgery with an antibacterial soap.? Wear comfortable, loose fitting clothing.? - Jewelry must be removed prior to entering the operating room.? Rings and piercings that are not removed may be cut off. - The hospital will not accept responsibility for valuables.? - Please leave all valuables, including medications, at home the day of surgery. If you are going home after surgery, a licensed caterpillar driver must drive you home.? - NO public transportation without another adult if you receive anesthesia. - We recommend that an adult stay with you for 24 hours following discharge. - We also recommend that you do not drive, make important decision, drink alcoholic beverages, or take any drugs that were not prescribed by your health care provider for at least 24 hours after your discharge time. Follow any additional instructions given to you from your surgeon. Telephone instructions given to _Joy__and asked if any additional questions and then verbalized understanding. Patient advised to call surgeon office or pre surgery nurse liaison [phone] if any additional questions.
--- OUTSIDE RECORDS SUMMARY | 2025-03-31 02:19 | XMS_ITS | Patient Health Record ---
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 daily for 3 days in the morning, then one tablet twice daily - Continue EMDR therapy - Follow-up in one month the note is transcribed using speech recognition software. It is a reflection of a visit with the patient. It might have some inaccuracy, including medication names and transcribing errors, though efforts have been made to correct them. 03/20/2025 Lory Gallegos, presents with continued EMDR treatment planning with focus on childhood feelings and their current life impact. EMDR Treatment Planning - Assessment: Rosy demonstrated progress in EMDR preparation by becoming more specific about childhood feelings and their connection to current life experiences. The AIP (Adaptive Information Processing) history taking was continued, providing foundation for trauma processing work. Rosy's increased specificity regarding emotional experiences indicates readiness to progress in EMDR protocol. - Plan: - Begin EMDR bilateral stimulation next session. - Continue support and reassurance through active listening. 03/27/2025 Lory Gallegos, experiencing distress related to her daughter's self-injuring behaviors and her brother's incarceration for child pornography charges, while showing improvement on Auvelity medication. Daughter's Self-Injuring Behaviors - Assessment: Rosy received notification today that her 6th grade daughter has resumed self-injuring behaviors. This acute stressor is contributing to her current psychological distress and represents an ongoing parental concern requiring attention and support. - Plan: - Support and encouragement provided through active listening. -Daughter starting IOP next month when she turns 13 years old Brother's Incarceration - Assessment: Rosy recently learned that her younger brother has been incarcerated in [place] on child pornography charges. This family crisis represents an additional significant stressor that is weighing heavily on her emotional well-being. - Plan: - Support and encouragement provided through active listening. Mood Symptoms - Assessment: Rosy reports improvement in mood symptoms since starting Auvelity. She describes increased motivation, improved mood with less despair, and tasks becoming easier to manage. This represents positive treatment response to current medication intervention. - Plan: - Continue Auvelity. Plan Of Treatment Next Appt Details Provider Name:Jessy Camejo Jayjay salvador Kilgore, 04/01/2025 08:00:00 AM, [address], [address], [place], [address], Provider Name:Jessy Camejo Jayjay salvador Kilgore, 04/10/2025 09:00:00 AM, [address], [address], [place], [address], Provider Name:Reginald peralta, 04/14/2025 09:15:00 AM, [address], [address], [place], [address], Provider Name:Jessy Camejo Jayjay Kilgore, 04/17/2025 08:00:00 AM, [address], [address], [place], [address], Provider Name:Jessy Camejo Jayjay Kilgore, 04/24/2025 08:00:00 AM, [address], [address], [place], [address], Provider Name:Jessy Camejo Jayjay Kilgore, 05/05/2025 08:00:00 AM, [address], [address], [place], [address], Provider Name:Jessy Camejo Jayjay Kilgore, 05/14/2025 08:00:00 AM, [address], [address], [place], [address], Provider Name:Jessy Camejo Jayjay Kilgore, 05/21/2025 08:00:00 AM, [address], [address], [place], [address], Insurance Providers Payer Name Payer Address Payer Phone Subscriber Number Group Number Insured Name Patient Relationship to Insured Coverage Start Date Coverage End Date Bc-Wa [address] [place] [address] [id number] [employer] Spouse - patient is the [...] t psychotic features Vitamin D deficiency , Past Psychiatric History: Anxiety Disord er,PTSD undefined abdominal aortic aneurysm: No atrial fibrillation: No chronic fatigue syndrome: No essential tremor: No hyperlipidemia: No hypertension: No Parkinson's disease: No restless leg syndrome: No stroke: No subdural hematoma: No type 1 diabetes mellitus: No type 2 diabetes mellitus: No vitamin B12 deficiency: Yes vitamin D deficiency: Yes Surgical History Surgery Date(Month/Year) Endometr ablate thermal (03543) Tonsilectomy/adenoids 05/08/1980 Endometrial ablation (39812) 11/23/2008
--- OUTSIDE RECORDS SUMMARY | 2025-03-31 02:19 | XMS_ITS | Clinical Summary ---
Author Organization [facility] Address [address] [place] [phone] Phone Care Team Providers Care Network Security Analyst Name Role Phone Janette Sanchez MD Primary Care Provider [phone] Social History Tobacco Use Types Packs/Day Years [...] (1 of 3 - 19+ 3-dose series) 01/1995 HPV/Cotest (21-29) 1997 CERVICAL CANCER SCREENING 2006 HPV/Cotest (30-65) 2006 PAP SMEAR 2006 BREAST CANCER SCREENING 2016 COLORECTAL SCREENING 2021 Colorectal Cancer Screening 2021 FIT-DNA Q 3 years 2021 FIT/FOBT Q 1 year 2021 Flex Sig/CT Colonography Q 5 years 2021 INFLUENZA VACCINE (#1) 2024 Insurance BCBS BLUE ACCESS/TRUE BLUE PPO Care Teams Network Security Analyst Relationship Specialty Start Date End Date Janette Sanchze MD [address] [address] PCP - General 04/24/15
[2025-03-31 06:35] VITALS: BP 140/76; PULSE 79; RESP 18; TEMP 36.1; O2SAT 100
[2025-03-31] MEDS: LACTATED RINGERS 1,000 ML 30 ML IV CONT (07:00)
[2025-03-31] MEDS: ACETAMINOPHEN 500 MG TABLET 1000 MG PO (07:05)
--- NOTE | 2025-03-31 07:26 | WPDHPUPDATE1 ---
History and Physical Update Update Date/Time: 03/31/25 07:26 History and Physical has been reviewed, including an updated exam of the patient. There are NO changes in the patient's condition. Risks, benefits, and alternatives have been discussed and questions answered. Patient agrees to proceed with procedure.
--- NOTE | 2025-03-31 07:26 | PM.HPGS ---
History of Present Illness History of Present Illness Consent: Risks, benefits, and alternatives have been discussed and questions answered. Patient agrees to proceed with procedure. Chief complaint: abnormal uterine bleed, Fibroids Narrative: Radha Jorge is a 49 year old female with heavy menses. Pelvic ultrasound does show 1 measurable fibroid. It was recommended to undergo D&C hysteroscopy with possible hysteroscopic myomectomy. Risks of infection, bleeding, perforation, and possible pathology are discussed. It was reviewed that the fibroid may be visible on hysteroscopy that may be on the outside of the uterus and not visible. Patient voices understanding and agrees to proceed. Review of Systems Review of Systems: not repeated day of surgery; patient states no changes in status PMFSH Past Medical History Medical History (Updated 03/31/25 @ 07:30 by Denise Huffman MD) Irritable bowel syndrome (IBS) ADD (attention deficit disorder) Anemia Anxiety Depression Surgical History Surgical History (Updated 03/31/25 @ 07:29 by Denise Huffman MD) History of D&C x2 and spontaneous Ab x1 History of tonsillectomy History of tympanomastoidectomy (~03/2010) Family History Family History (Updated 08/08/24 @ 14:58 by Norma Batista) Mother Heart disease Hypertension Anxiety Father Depression Anxiety Alcohol abuse Hypertension Grandparent Heart disease Alcohol abuse Social History Social History Smoking status: Never smoker Alcohol intake: never Alcohol use details: social 2 drinks/month Substance use: never Substance use type: does not use Do You Feel Safe in your Home?: Yes Lack of Transportation: No Lack of Food: Never True Current Housing: I Have Housing Concerned About Future Housing: No Difficulty Paying Gas/Electric Bills: No Difficulty Paying for Meds: No Currently Unemployed: No Education: Bachelor's Degree Difficulty w/ Childcare or Family Care: No Living arrangements: with family Gender identity (if verbalized by the patient): Female Sexual Orientation (if Verbalized by the Patient): Straight or Heterosexual Spiritual care concerns: No Agree to blood products: Yes Meds Home Medications and Allergies Home Medications ?Medication ?Instructions ?Recorded ?Confirmed ?Type lisdexamfetamine 70 mg capsule 70 mg PO QAM 08/08/24 03/31/25 History (Vyvanse) cholecalciferol (vitamin D3) 10 400 unit PO DAILY 03/21/25 03/31/25 History mcg (400 unit) capsule (Vitamin D3) dextromethorphan IR 45 1 tablet PO BID 03/21/25 03/31/25 History mg-bupropion ER 105 mg biphasic tablet (Auvelity) Allergies Allergy/AdvReac Type Severity Reaction Status Date / Time bupropion (From Wellbutrin) AdvReac Intermediate tremors Verified 03/31/25 06:51 Vital Signs Vital Signs - 24 hr 03/31/25 06:35 Temperature 97.0 F L Pulse Rate 79 Respiratory Rate 18 Blood Pressure 140/76 Pulse Oximetry 100 Oxygen Delivery Room Air Exam Const: General: healthy appearing and alert Orientation/consciousness: patient oriented x3 Resp: Effort & Inspection: normal respiratory effort GI: GI Palp: Yes Soft to palpation, No Tenderness to palpation present (GI) and No Palpable mass present : External Female Exam: normal external appearance Speculum Exam - Vagina: normal appearance of the vagina and normal vaginal discharge Speculum Exam - Cervix: normal appearance of the cervix Bimanual exam- vagina & uterus: uterine size normal and consistency normal Bimanual Exam- Adnexa, other: normal adnexae and No adnexal tenderness Neuro: General: patient oriented x3 Assessment and Plan Assessment and plan (1) Menorrhagia: Code(s): N92.0 - Excessive and frequent menstruation with regular cycle Status: Acute Assessment and Plan: Plan to proceed with D&C hysteroscopy possible hysteroscopic myomectomy
--- NOTE | 2025-03-31 07:51 | WPDANESEPPF ---
Anes - Initial Pre Proc Eval Procedure: Operation Date: 03/31/25 08:30 Proposed Procedures p Hysteroscopy Dilation and Curettage with Possible Myosure - Denise Huffman MD Date/Time: 03/31/25 07:51 Surgeon: Denise Huffman MD Pre Op Diagnosis: abnormal uterine bleed, Fibroids Patient Data Age: 49 Gender: F Height: 1.6 m Weight: 112.6 kg Last Vital Signs Temp 36.1 C L 03/31/25 06:35 Pulse 79 03/31/25 06:35 Resp 18 03/31/25 06:35 BP 140/76 03/31/25 06:35 Pulse Ox 100 03/31/25 06:35 O2 Del Method Room Air 03/31/25 06:35 Allergies Allergy/AdvReac Type Severity Reaction Status Date / Time bupropion (From Wellbutrin) AdvReac Intermediate tremors Verified 03/31/25 06:51 Home Medications ?Medication ?Instructions ?Recorded ?Confirmed ?Type lisdexamfetamine 70 mg capsule 70 mg PO QAM 08/08/24 03/31/25 History (Vyvanse) cholecalciferol (vitamin D3) 10 400 unit PO DAILY 03/21/25 03/31/25 History mcg (400 unit) capsule (Vitamin D3) dextromethorphan IR 45 1 tablet PO BID 03/21/25 03/31/25 History mg-bupropion ER 105 mg biphasic tablet (Auvelity) Patient hx anesthesia problems: none Family hx anesthesia problems: none Results Review: All pre-operative results and documents have been reviewed as part of the pre-operative evaluation. [facility], [facility] Past Medical History Medical History Irritable bowel syndrome (IBS) ADD (attention deficit disorder) Anemia Anxiety Depression Surgical History Surgical History History of D&C x2 and spontaneous Ab x1 History of tonsillectomy History of tympanomastoidectomy (~03/2010) Family History Family History Mother Heart disease Hypertension Anxiety Father Depression Anxiety Alcohol abuse Hypertension Grandparent Heart disease Alcohol abuse Social History Social History Smoking status: Never smoker Alcohol intake: never Alcohol use details: social 2 drinks/month Substance use: never Substance use type: does not use Do You Feel Safe in your Home?: Yes Lack of Transportation: No Lack of Food: Never True Current Housing: I Have Housing Concerned About Future Housing: No Difficulty Paying Gas/Electric Bills: No Difficulty Paying for Meds: No Currently Unemployed: No Education: Bachelor's Degree Difficulty w/ Childcare or Family Care: No Living arrangements: with family Gender identity (if verbalized by the patient): Female Sexual Orientation (if Verbalized by the Patient): Straight or Heterosexual Spiritual care concerns: No Agree to blood products: Yes Anes - Eval Final PreProcedure Day of Procedure 03/31/25 07:51 Patient weight: morbidly obese Heart: regular rate and rhythm Lungs: clear to auscultation Airway: Mallampati scale class II Neurological: alert and oriented Last oral intake: >/= 8 hours ASA classification: III Emergent: no Anesthetic plan: proceed Anesthesia type and monitoring: general GIVS and standard monitoring Results Review: All pre-operative results and documents have been reviewed as part of the pre-operative evaluation. Informed Consent: The patient's anesthetic plan and its attendant risks and benefits were discussed with the patient/family/POA. Questions were solicited and answers provided to the satisfaction of the patient/family/POA.
--- NOTE | 2025-03-31 08:21 | S_PTH ---
PATIENT: Radha Jorge LOC: [facility]#:[id number] AGE/SX: 49/F ROOM: RE03/31/[address]: Denise Huffman MD : 1975 BED: DIS: 03/31/2025 SPEC #: [id number] RECD: 03/31/25 10:03 STATUS: JT REArlene #: [id number] TRAMAINE: 03/31/25 08:[address]: Denise Huffman DEPT: [facility] Surgical RECD BY: Gisel Dubon ENTERED: 03/31/25 10:04 SP TYPE: Surgical OTHR DR: Kayy Morales APRN Tissues: A - Endometrial Curettings Procedures: Hematoxylin and Eosin Stain Gross and Microscopic Level 4
[2025-03-31 08:28] VITALS: BP 116/33; PULSE 75; RESP 14; O2SAT 95
--- NOTE | 2025-03-31 08:40 | W.PM.PROC2 ---
Procedure Note - Detailed Date of Procedure 03/31/25 Pre-op Diagnosis abnormal uterine bleed, Fibroids Post-op Diagnosis Same Procedure Performed D&C hysteroscopy Surgeon Denise Huffman MD Anesthesia MAC Findings The uterus sounds to 10cm and appears grossly normal. Description of Procedure The patient was taken to the operating room and placed under anesthesia in the dorsal lithotomy position. She was prepped and draped in the usual sterile fashion. [place] speculum was placed in the vagina and the cervix grasped on the anterior lip with tenaculum. The uterus is sounded to 10 cm. The diagnostic hysteroscope was placed and with the above-stated findings it was removed. The endometrium was curetted with a sharp curette until a good uterine cry was noted in all areas. Instruments are removed. Sponge, needle, and instrument counts are correct per the OR staff. The patient was taken to recovery in stable condition. Estimated Blood Loss 5 Drains No Packing No Pathology Yes (Endometrial curettings) Complications No immediate complications Condition Stable Disposition PACU
[2025-03-31 08:45] VITALS: BP 124/59; PULSE 66; RESP 14; O2SAT 99
[2025-03-31 09:15] VITALS: BP 131/65; PULSE 65; RESP 14
[2025-03-31 11:52] LABS: BEDSIDEPREGUCG Negative (Negative)
== END 2025-03-31 09:30 | disposition home or self-care (01) ==
PROVIDERS: PCP Nurse Practitioner Family; Visit Provider Obstetrics & Gynecology Gynecology
PROC: 0U5B8ZZ Destruction of Endometrium, Via Natural or Artificial Opening Endoscopic (ICD-10-PCS; CPT 58563; principal; 2025-03-31 08:30)
DX: N92.0 Excessive and frequent menstruation with regular cycle (principal); K58.9 Irritable bowel syndrome, unspecified; F98.8 Other specified behavioral and emotional disorders with onset usually occurring in childhood and adolescence; D64.9 Anemia, unspecified; F41.9 Anxiety disorder, unspecified; F32.A Depression, unspecified; E66.01 Morbid (severe) obesity due to excess calories; Z68.41 Body mass index [BMI] 40.0-44.9, adult; Z98.890 Other specified postprocedural states; Z82.49 Family history of ischemic heart disease and other diseases of the circulatory system
CPT/HCPCS: 58558; 88305; A9270; J1100; J1885; J2003; J2250; J2405; J2704; J3010; J7120

== ENCOUNTER 2025-04-02 13:41 | Outpatient (CLI) | payer BC, SELFPAY ==
--- NOTE | ~2025-04-02 | MM_ITS ---
EXAMINATION: MM screening perlita BI w holly HISTORY: Screening. TECHNIQUE: Craniocaudal and mediolateral oblique 3-D tomosynthesis images were obtained and synthetic 2-D images were generated. CAD analysis was submitted and interpreted. COMPARISON: 2023, 2021, and 2019 BREAST PARENCHYMAL COMPOSITION: Not Dense: There are scattered areas of fibroglandular tissue. FINDINGS: No suspicious masses are seen. There are no suspicious calcifications. No unexplained architectural distortion is seen. There are no skin or nipple abnormalities identified. There is no adenopathy seen on the images submitted. IMPRESSION: No mammographic evidence to suggest malignancy is seen. The patient may return to screening mammography as per ACR guidelines. BI-RADS: 1 - Negative. Reviewed, dictated and finalized at location B. [employer]
== END 2025-04-02 13:42 | disposition home or self-care (01) ==
LOC: MICIMG 13:42
PROVIDERS: PCP Obstetrics & Gynecology Gynecology; Visit Provider Obstetrics & Gynecology Gynecology
DX: Z12.31 Encounter for screening mammogram for malignant neoplasm of breast (principal)
CPT/HCPCS: 77063; 77067

== ENCOUNTER 2025-04-28 03:38 | Day surgery (SDC) | payer BC, SELFPAY ==
[2025-04-23 15:44] VITALS: BMI 44.2
--- NOTE | 2025-04-23 15:52 | PC.NURSE ---
[facility] has started construction of its new state of the art ER which will open Spring 2026. With this, we anticipate parking may be a challenge for some our surgical patients and families. Parking spaces are limited but are available for all Surgical, obstetrics, and ER patients sharing this lot. If you arrive and find you are having a hard time finding a parking space, please note that we understand the challenges, please drive around the hospital and park near Hospital Entrance 1. When you enter this entrance, you can ask a volunteer to direct or take you back to the surgical waiting area to check in. We appreciate everyone?s understanding of these expected challenges while we build for your future. Report to the Outpatient Waiting Room, entrance under the green pavilion located off [address], at time __0630am on date __04/28/25 . Planned Procedure Time: 0830am .? Time changes happen often and if your time is changed the preop area will call you the afternoon before. - You and your visitor will be asked to self-screen and do not enter if you have any COVID symptoms. Please call surgeon if you need to reschedule. - A mask is optional within the hospital at this time. Patients may have clear liquids (water, carbonated beverages, clear teas, apple juice) until 3 hours prior to surgery with a maximum of 20 ounces. - No food from midnight until time of surgery and no smoking, or chewing tobacco (or any form of nicotine). No chewing gum, candy or mints. (0530am) Take only the following medications with a SIP of water on the morning of surgery: Auvelity DO NOT STOP ANY OF YOUR OTHER PRESCRIPTION MEDICATIONS PRIOR TO SURGERY EXCEPT THE FOLLOWING Hold all vitamins and supplements for 3 days per anesthesiologist. Medications to discontinue per physician ____NONE Date to take last dose NONE Please no make-up, nail italian, hairspray, perfume, deodorant, or body powder the day of surgery.? No jewelry (including any body piercings) or valuables the day of surgery, leave them at home.? Please take a shower or bath the night before, or the morning of, surgery with an antibacterial soap.? Wear comfortable, loose fitting clothing.? Children are encouraged to wear pajamas. - Jewelry must be removed prior to entering the operating room.? Rings and piercings that are not removed may be cut off. - The hospital will not accept responsibility for valuables.? - Please leave all valuables, including medications, at home the day of surgery. If you are going home after surgery, a licensed pizza driver must drive you home.? - NO public transportation without another adult if you receive anesthesia. - We recommend that an adult stay with you for 24 hours following discharge. - We also recommend that you do not drive, make important decision, drink alcoholic beverages, or take any drugs that were not prescribed by your health care provider for at least 24 hours after your discharge time. Follow any additional instructions given to you from your surgeon. Telephone instructions given to __Patient and asked if any additional questions and then verbalized understanding. Patient advised to call surgeon office or pre surgery nurse liaison [phone] if any additional questions.
--- OUTSIDE RECORDS SUMMARY | 2025-04-28 03:41 | XMS_ITS | Clinical Summary ---
Author Organization [facility] Address [address] [place] [id number] Care Team Providers Care Color Printer Operator Name Role Phone Unavailable Primary Care Provider [...] Comments Blood Pressure 116/68 05/22/2013 9:31 AM [employer] FUNCTIONAL TESTER Pulse 74 05/22/2013 9:31 AM [employer] FUNCTIONAL TESTER Temperature - - Respiratory Rate - - Oxygen Saturation - - Inhaled Oxygen Concentration - - Weight 105.2 kg (232 lb) 05/22/2013 9:31 AM [employer] FUNCTIONAL TESTER Height 162.6 cm (5' 4) 05/22/2013 9:31 AM [employer] FUNCTIONAL TESTER Body Mass Index 39.82 05/22/2013 9:31 AM [employer]WR[employer] FUNCTIONAL TESTER Plan of Treatment Health Maintenance Due Date [...] HPV 2006 Mammogram Screening 2016 COVID-19 Vaccine (2024-2 6 season) 2025 Influenza Adult (#1) 2025 Hepatitis A Vaccines Aged Out No long er eligible based on patient's age to complete this topic Meningococcal B Vaccine Aged Out No l onger eligible based on patient's age to complete this topic Meningococcal Vaccine Aged Out No radha yao eligible based on patient's age to complete this topic Pneumococcal Vaccine: Pediat rics (0 to 5 Years) and At-Risk Patients (6 to 49 Years) Aged Out No longer eligible b ased on patient's age to complete this topic RSV Immunizations Under 20 Months Aged Out No longer eligible based on patient's age to complete this topic Advance Directives Documents on File Type Date Recorded Patient Product Safety Professional Expl anation Advance Directives and Living Will 05/07/2013 12:00 AM [employer]
--- OUTSIDE RECORDS SUMMARY | 2025-04-28 03:41 | XMS_ITS | Patient Health Record ---
Author Organization [facility] Address [address] [facility] [address] [place] [address] Care Team Providers Care Emergency Medical Services Coordinator Name Role Phone Kayy Multani Primary Care Provider Reginald Villalpando Unavailable [phone] Jessy Thurman Unavailable [phone] Allergies No Known Allergies Results Component Value Reference Range Notes UDT Reviewed date:02/13/2025 02:06:03 PM Interpretation: Performing [...] ng/ml x N 0 - 300 ng/ml UDT Reviewed date:10/15/2024 12:59:47 PM Interpretation: Performing [...] ng/ml x NEG 0 - 300 ng/ml Reason For Referral No Information Medications Medication SIG (Take, Route, Frequency, Duration) Notes Start Date End Date Status Auvelity 45-105 MG Tablet Extended Release 1 tablet Orally twice a day; Duration: 30 days 03/19/2025 Active clonazePAM 0.5 MG Tablet Oral 04/14/2025 Active Lisdexamfetamine Dimesylate 70 MG Capsule 1 capsule in the morning Orally Once a day; Duration: 30 days 04/14/2025 Active Immunizations Vaccine Route Administration Date Status [...] decision-maker Yes Do you have Power of Early Morning for Health or [facility]? No Drug/Alcohol: Social Info Question Answer Notes [...] Risk Notes Problem Mild recurrent major depression (65561040) Major depressive disorder, recurrent, mild (F33.0) 07/19/19 Active confirmed Problem Generalized anxiety disorder (85403439) Generalized anxiety disorder (F41.1) 07/19/19 Active confirmed Problem Attention deficit hyperactivity disorder, combined type (08035947) Attention-deficit hyperactivity disorder, combined type (F90.2) 08/31/19 Active confirmed Problem Panic disorder (814799606) Panic disorder [episodic paroxysmal anxiety] without agoraphobia (F41.0) 07/19/19 Active confirmed Vital Signs Heart Rate 73 /min 04/14/2025 Height-cm 160.02 cm 04/14/2025 Blood pressure diastolic 90 mm Hg 04/14/2025 Weight-kg 113.4 kg 04/14/2025 Height 63.00 in 04/14/2025 Blood pressure systolic 136 mm Hg 04/14/2025 Weight 250 lbs 04/14/2025 BMI 44.28 kg/m2 04/14/2025 Encounters Encounter Location Date Provider Diagnosis [facility] [employer] [place] [address] [address] [facility] [address] [address] 06/18/2024 Reginald Schroeder Panic disorder [episodic paroxysmal anxiety] without agoraphobia F41.0 ; Generalized anxiety disorder F41.1 ; Major depressive disorder, recurrent, mild F33.0 and Attention-deficit hyperactivity disorder, combined type F90.2 [facility] [employer] [place] [address] [address] 10/14/2024 Reginald Schroeder Encounter for screening for depression Z13.31 ; Encounter for screening for cardiovascular disorders Z13.6 ; Panic disorder [episodic paroxysmal anxiety] without agoraphobia F41.0 ; Generalized anxiety disorder F41.1 ; Major depressive disorder, recurrent, mild F33.0 and Attention-deficit hyperactivity disorder, combined type F90.2 [facility] [place] [id number] [address] 01/20/2025 Jessy Kilgore Generalized anxiety disorder F41.1 and Attention-deficit hyperactivity disorder, combined type F90.2 [facility] [employer] [place] [address] [address] 02/10/2025 Jessy Kilgore Major depressive disorder, recurrent, mild F33.0 ; Generalized anxiety disorder F41.1 and Attention-deficit hyperactivity disorder, combined type F90.2 [facility] [address] [address] [place] [address] 02/13/2025 Reginald Schroeder Panic disorder [episodic paroxysmal anxiety] without agoraphobia F41.0 ; Generalized anxiety disorder F41.1 ; Major depressive disorder, recurrent, mild F33.0 and Attention-deficit hyperactivity disorder, combined type F90.2 [place] [address] [place] [address] 03/04/2025 Jessy Kilgore Major depressive disorder, recurrent, mild F33.0 ; Generalized anxiety disorder F41.1 and Attention-deficit hyperactivity disorder, combined type F90.2 [place] [address] [place] [address] 03/13/2025 Jessy Kilgore Major depressive disorder, recurrent, mild F33.0 ; Attention-deficit hyperactivity disorder, combined type F90.2 and Generalized anxiety disorder F41.1 [place] [address] [place] [address] 03/17/2025 Reginald Schroeder Panic disorder [episodic paroxysmal anxiety] without agoraphobia F41.0 ; Generalized anxiety disorder F41.1 ; Major depressive disorder, recurrent, mild F33.0 and Attention-deficit hyperactivity disorder, combined type F90.2 [place] [address] [place] [address] 03/20/2025 Jessy Kilgore Major depressive disorder, recurrent, mild F33.0 ; Attention-deficit hyperactivity disorder, combined type F90.2 and Generalized anxiety disorder F41.1 [place] [address] [place] [address] 03/27/2025 Jessy Kilgore Major depressive disorder, recurrent, mild F33.0 ; Generalized anxiety disorder F41.1 and Attention-deficit hyperactivity disorder, combined type F90.2 [place] [address] [place] [address] 04/01/2025 Jessy Kilgore Major depressive disorder, recurrent, mild F33.0 ; Attention-deficit hyperactivity disorder, combined type F90.2 and Generalized anxiety disorder F41.1 [place] [address] [place] [address] 04/10/2025 Jessy Kilgore Generalized anxiety disorder F41.1 ; Major depressive disorder, recurrent, mild F33.0 and Attention-deficit hyperactivity disorder, combined type F90.2 [facility], [facility] [address] [place] [address] 04/14/2025 Reginald Schroeder Panic disorder [episodic paroxysmal anxiety] without agoraphobia F41.0 ; Generalized anxiety disorder F41.1 ; Major depressive disorder, recurrent, mild F33.0 and Attention-deficit hyperactivity disorder, combined type F90.2 [facility], [facility] [address] [place] [address] 04/17/2025 Jessy Kilgore Major depressive disorder, recurrent, mild F33.0 ; Generalized anxiety disorder F41.1 and Attention-deficit hyperactivity disorder, combined type F90.2 [facility], [facility] [address] [place] [address] 04/24/2025 Jessy Kilgore Major depressive disorder, recurrent, mild F33.0 ; Generalized anxiety disorder F41.1 and Attention-deficit hyperactivity disorder, combined type F90.2 [facility], [facility] [address] [place] [address] 10/14/2024 Reginald Schroeder [facility], [facility] [address] [place] [address] 07/26/2024 Reginald Schroeder Attention-deficit hyperactivity disorder, combined type F90.2 [facility], [facility] [address] [place] [address] 09/01/2024 Reginald Schroeder Attention-deficit hyperactivity disorder, combined type F90.2 [facility], [facility] [address] [place] [address] 10/04/2024 Reginald Schroeder Attention-deficit hyperactivity disorder, combined type F90.2 [facility], [facility] [address] [place] [address] 10/22/2024 Reginald Venegasoza [facility], [facility] [address] [place] [address] 10/22/2024 Reginald Schroeder [facility] [address] [place] [address] 10/23/2024 Reginald Schroeder [facility] [address] [place] [address] 11/05/2024 Reginald Schroeder Attention-deficit hyperactivity disorder, combined type F90.2 [facility] [address] [facility] [address] [place] [address] 12/11/2024 Reginald Schroeder Attention-deficit hyperactivity disorder, combined type F90.2 [facility] [address] [facility] [address] [place] [address] 01/15/2025 Reginald Schroeder Attention-deficit hyperactivity disorder, combined type F90.2 Assessments Encounter Date Diagnosis (ICD Code) Assessment Notes Treatment Notes Treatment Clinical Notes Section Notes 10/14/2024 Encounter for screening for depression (ICD-10 - Z13.31) 10/04/2024 Attention-deficit hyperactivity disorder, combined type (ICD-10 - F90.2) 04/14/2025 Panic disorder [episodic paroxysmal anxiety] without agoraphobia (ICD-10 - F41.0) cont clonazepam prn, 06/18/2024 Panic disorder [episodic paroxysmal anxiety] without agoraphobia (ICD-10 - F41.0) cont clonazepam prn, 11/05/2024 Attention-deficit hyperactivity disorder, combined type (ICD-10 - F90.2) 04/24/2025 Major depressive disorder, recurrent, mild (ICD-10 - F33.0) 04/24/2025 Generalized anxiety disorder (ICD-10 - F41.1) 04/17/2025 Major depressive disorder, recurrent, mild (ICD-10 - F33.0) 04/17/2025 Generalized anxiety disorder (ICD-10 - F41.1) 04/10/2025 Generalized anxiety disorder (ICD-10 - F41.1) 04/01/2025 Attention-deficit hyperactivity disorder, combined type (ICD-10 - F90.2) 03/27/2025 Major depressive disorder, recurrent, mild (ICD-10 - F33.0) 03/27/2025 Generalized anxiety disorder (ICD-10 - F41.1) 04/01/2025 Major depressive disorder, recurrent, mild (ICD-10 - F33.0) 03/20/2025 Major depressive disorder, recurrent, mild (ICD-10 - F33.0) 03/20/2025 Attention-deficit hyperactivity disorder, combined type (ICD-10 - F90.2) 03/13/2025 Attention-deficit hyperactivity disorder, combined type (ICD-10 - F90.2) 03/04/2025 Major depressive disorder, recurrent, mild (ICD-10 - F33.0) 03/04/2025 Generalized anxiety disorder (ICD-10 - F41.1) 03/17/2025 Panic disorder [episodic paroxysmal anxiety] without agoraphobia (ICD-10 - F41.0) cont clonazepam prn, 03/13/2025 Major depressive disorder, recurrent, mild (ICD-10 - F33.0) 02/13/2025 Panic disorder [episodic paroxysmal anxiety] without agoraphobia (ICD-10 - F41.0) cont clonazepam prn, 02/10/2025 Major depressive disorder, recurrent, mild (ICD-10 - F33.0) 02/10/2025 Generalized anxiety disorder (ICD-10 - F41.1) 01/15/2025 Attention-deficit hyperactivity disorder, combined type (ICD-10 - F90.2) 12/11/2024 Attention-deficit hyperactivity disorder, combined type (ICD-10 - F90.2) 07/26/2024 Attention-deficit hyperactivity disorder, combined type (ICD-10 - F90.2) 01/20/2025 Generalized anxiety disorder (ICD-10 - F41.1) 01/20/2025 Attention-deficit hyperactivity disorder, combined type (ICD-10 - F90.2) 09/01/2024 Attention-deficit hyperactivity disorder, combined type (ICD-10 - F90.2) 10/14/2024 Encounter for screening for cardiovascular disorders (ICD-10 - Z13.6) 02/10/2025 Attention-deficit hyperactivity disorder, combined type (ICD-10 - F90.2) 03/13/2025 Generalized anxiety disorder (ICD-10 - F41.1) 02/13/2025 Generalized anxiety disorder (ICD-10 - F41.1) cont counseling 03/04/2025 Attention-deficit hyperactivity disorder, combined type (ICD-10 - F90.2) 03/17/2025 Generalized anxiety disorder (ICD-10 - F41.1) cont counseling 03/20/2025 Generalized anxiety disorder (ICD-10 - F41.1) 04/01/2025 Generalized anxiety disorder (ICD-10 - F41.1) 03/27/2025 Attention-deficit hyperactivity disorder, combined type (ICD-10 - F90.2) 06/18/2024 Generalized anxiety disorder (ICD-10 - F41.1) cont counseling 04/17/2025 Attention-deficit hyperactivity disorder, combined type (ICD-10 - F90.2) 04/10/2025 Major depressive disorder, recurrent, mild (ICD-10 - F33.0) 04/24/2025 Attention-deficit hyperactivity disorder, combined type (ICD-10 - F90.2) 04/14/2025 Generalized anxiety disorder (ICD-10 - F41.1) cont counseling 10/14/2024 Panic disorder [episodic paroxysmal anxiety] without agoraphobia (ICD-10 - F41.0) cont clonazepam prn, 04/14/2025 Major depressive disorder, recurrent, mild (ICD-10 - F33.0) 06/18/2024 Major depressive disorder, recurrent, mild (ICD-10 - F33.0) cont counseling 04/10/2025 Attention-deficit hyperactivity disorder, combined type (ICD-10 - F90.2) 03/17/2025 Major depressive disorder, recurrent, mild (ICD-10 - F33.0) cont counseling Electronic Prior Authorization was requested for Auvelity 45-105 MG Tablet Extended Release. Provider can order medication once approval received. 02/13/2025 Major depressive disorder, recurrent, mild (ICD-10 - F33.0) cont counseling 03/17/2025 Attention-deficit hyperactivity disorder, combined type (ICD-10 - F90.2) 02/13/2025 Attention-deficit hyperactivity disorder, combined type (ICD-10 - F90.2) 06/18/2024 Attention-deficit hyperactivity disorder, combined type (ICD-10 - F90.2) 10/14/2024 Generalized anxiety disorder (ICD-10 - F41.1) cont counseling 04/14/2025 Attention-deficit hyperactivity disorder, combined type (ICD-10 - F90.2) 10/14/2024 Major depressive disorder, recurrent, mild (ICD-10 - F33.0) cont counseling 10/14/2024 Attention-deficit hyperactivity disorder, combined type (ICD-10 - [...] been helpful in managing ADHD symptoms, including decision-making , focus, and task management. - Patient wishes [...] to use it as a tool in anxiety-provoki ng situations. Plan: - Continue clonazepam - Continue [...] to correct them. 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 Attention-Deficit/H yperactivity Disorder (ADHD) - Assessment: Rosy has a [...] for panic states. Plan: - Initiate Auvelity (dextromethorphan/b upropion combination) - One tablet once daily for [...] and recently had a psychiatric evaluation at [facility]. Daughter's Self-Injurious Behavior - Assessment: Rosy reports her 16-year-old daughter has started self-injuring and is displaying shut down and rude behaviors at school. The daughter recently had a psychiatric evaluation at [facility] but was not admitted to the inpatient [...] participation for Rosy. - Consider AD ([employer]ness) resources for Rosy. 03/13/2025 Lory Gallegos presents with persistent feelings of guilt related to role conflict between being a fqly-nn-avei mother and potential work outside the home, while managing a complex household with 5 children. Persistent Guilt Feelings and Role Conflict - Assessment: Rosy presents with ongoing feelings of guilt related to her role conflict between being a xoda-ur-noga mother and potential work outside the home. - Plan: - Encourage prioritizing self-care and personal resources. - Provide ADHD resources including the [employer] ivan. - Recommend the book How to Keep House While Drowning. - Complete AIP (Adaptive Information Processing) history taking and treatment planning to initiate EMDR therapy. This section addresses Rosy's complex caregiving responsibilities while providing comprehensive strategies for managing guilt and improving overall functioning. 03/17/2025 Lory Villa is a patient with treatment-resistant depression who discontinued Auvelity due to insurance coverage issues and is considering restarting the medication with prior authorization. Treatment-resistant depression Assessment: Patient has a history of multiple failed antidepressant trials including Lexapro, sertraline, duloxetine, tritex, and bupropion. Recently started Auvelity but discontinued after a few days due to insurance denial notification without attempting to resolve coverage issues. Auvelity has a different mechanism of action compared to previously tried medications, making it a reasonable option for treatment-resistant depression. Patient tolerated the medication well during [...] her younger brother has been incarcerated in [place] on child pornography charges. This family crisis [...] medication intervention. - Plan: - Continue Auvelity. 04/01/2025 Lory Gallegos, a parent, presents with concerns about her daughter's mental health and upcoming enrollment in an intensive outpatient program for adolescents. Parental Stress Regarding Daughter's Mental Health - Assessment: Rosy expressed concerns about her daughter's mental health status, with the daughter scheduled to begin an intensive outpatient program (IOP) for adolescents following her 13th birthday in approximately one to two weeks. The daughter has also requested to be homeschooled, which may indicate school-related difficulties or avoidance behaviors. Rosy is managing the challenges of parenting multiple neurodivergent children, which contributes to her overall parental stress and concern about her children's wellbeing. - Plan: - Support and reassurance provided regarding parenting challenges with neurodivergent children. 04/10/2025 Lory Gallegos discussed forgiveness concepts, her daughter's identity struggles, and cognitive patterns during this session. Vyzid-bnf-ymsel thinking patterns - Assessment: Rosy demonstrates awareness of her tendency toward dichotomous thinking and is actively working to identify meraz areas in situations. This cognitive pattern recognition suggests developing insight into her thought processes and willingness to challenge thinking styles. - Plan: Continue exploring cognitive flexibility and challenging rigid thinking patterns in future sessions. Forgiveness processing - Assessment: Rosy is exploring the concept of forgiveness as a personal process rather than one requiring reconciliation. She is differentiating between forgiving her for her own benefit versus forgiving him for his benefit, indicating therapeutic progress in understanding forgiveness as a self-directed healing process. - Plan: Support continued exploration of forgiveness as a personal healing journey. Daughter's identity issues - Assessment: Rosy reports her daughter is experiencing identity struggles and she is attempting to balance being supportive while maintaining realistic expectations. This represents a parenting challenge requiring navigation of appropriate boundaries and support levels. - Plan: Work on developing strategies for supportive parenting while maintaining healthy boundaries. 04/14/2025 Lory Villa is being managed on a twice-daily medication regimen with good therapeutic response but experiencing medication adherence challenges and new-onset sleep difficulties. Medication adherence issues Patient reports difficulty remembering to take the second daily dose of medication, sometimes forgetting until 5-6 PM or not feeling the need for it when morning dose effects last until 3 PM. When second dose is missed or taken late (after 6-7 PM), patient experiences earlier onset of fatigue and yawning in the evening. Current medication regimen appears therapeutically beneficial with increased motivation reported. Plan: - Continue current medication regimen as it is working well therapeutically - Recommend setting a specific time for second daily dose to improve adherence - Advise taking medications at the same time each day for optimal routine - Follow up in three months Sleep onset difficulty Patient reports new-onset sleep difficulties that began around the time medication was started. Experiences prolonged time to fall asleep with racing thoughts and mental scenarios, though sleep quality remains good once asleep. Sleep issues may be related to timing of second medication dose, particularly if taken later in the day. Plan: - Discussed that sleep effects can occur with medication, especially if taken later in the day - Recommend avoiding second dose after 6-7 PM to minimize sleep interference the note is transcribed using speech recognition software. It is a reflection of a visit with the patient. It might have some inaccuracy, including medication names and transcribing errors, though efforts have been made to correct them. 04/17/2025 Lory Gallegos, preparing for EMDR processing to address guilt related to her children's struggles and childhood-related overdeveloped sense of responsibility. Guilt regarding children's struggles - Assessment: Rosy experiences guilt when her children are having difficulties and attributes responsibility to herself for their struggles. This guilt pattern appears to be connected to an overdeveloped sense of responsibility that originated in childhood, creating a cognitive distortion where she assumes fault for circumstances beyond her control. The patient has identified this as a priority issue for EMDR processing. - Plan: - Begin EMDR processing for guilt related to children's struggles in next session. - Process childhood memory related to overdeveloped sense of responsibility through EMDR beginning next session. 04/24/2025 Lory Gallegos continues therapy addressing her core clinical theme of I Do Not Matter while exploring childhood trauma and its impact on current relationships. Core Belief I Do Not Matter - Assessment: Rosy continues to present with the persistent clinical theme of I Do Not Matter, which appears to be a deeply rooted core belief affecting her self-worth and interpersonal relationships. During this session, she shared childhood memories regarding her father, indicating potential early developmental trauma or attachment issues. The connection between these childhood experiences and her current relationship dynamics with her suggests ongoing manifestation of these early relational patterns in her adult life. - Plan: - Continue therapeutic work addressing core belief system and childhood trauma. - Explore connection between paternal relationship and current marital dynamics. Plan Of Treatment Next Appt Details Provider Name:Jessy franco Jame, 05/05/2025 08:00:00 AM, [address], [address], [place], [address], Provider Name:Jessy Camejo Jayjay s Jame, 05/14/2025 08:00:00 AM, [address], [address], [place], [address], Provider Name:Jessy Camejo Jayjay salvador Kilgore, 05/21/2025 08:00:00 AM, [address], [address], [place], [address], Provider Name:Jessy Camejo Jayjay salvador Kilgore, 07/09/2025 09:00:00 AM, [address], [address], [place], [address], Provider Name:Genet dumas, 07/14/2025 08:00:00 AM, [address], [address], [place], [address], Provider Name:Jessy Camejo Jayjay salvador Kilgore, 07/16/2025 08:00:00 AM, [address], [address], [place], [address], Provider Name:Jessy Camejo Jayjay salvador Kilgore, 07/23/2025 08:00:00 AM, [address], [address], [place], [address], Provider Name:Jessy Camejo Jayjay Kilgore, 07/28/2025 08:00:00 AM, [address], [address], [place], [address], Provider Name:Jessy Camejo Jayjay Kilgore, 08/06/2025 08:00:00 AM, [address], [address], [place], [address], Provider Name:Jessy franco Jame, 08/13/2025 08:00:00 AM, [address], [address], [place], [address], Provider Name:Jessy franco Jame, 08/20/2025 08:00:00 AM, [address], [address], [place], [address], Provider Name:Jessy franco Jame, 08/27/2025 08:00:00 AM, [address], [address], [place], [address], Provider Name:Jessy franco Jame, 09/03/2025 08:00:00 AM, [address], [facility], [place], [address], Provider Name:Jessy franco Jame, 09/10/2025 08:00:00 AM, [address], [facility], [place], [address], Insurance Providers Payer Name Payer Address Payer Phone Subscriber Number Group Number Insured Name Patient Relationship to Insured Coverage Start Date Coverage End Date [facility] [address] [place] [address] [id number] [place] Spouse - patient is the [...] Surgical History Surgery Date(Month/Year) Endometr ablate thermal (38861) Tonsilectomy/adenoids 05/08/1980 Endometrial ablation (25595) 11/23/2008
--- OUTSIDE RECORDS SUMMARY | 2025-04-28 03:41 | XMS_ITS | Clinical Summary ---
Author Organization [facility] Address [address] [place] [phone] Phone Care Team Providers Care Mechanic'S Assistant Name Role Phone Janette Sanchez MD Primary Care Provider [phone] Social History Tobacco Use Types Packs/Day Years [...] BCBS BLUE ACCESS/TRUE BLUE PPO Care Teams Mechanic'S Assistant Relationship Specialty Start Date End Date Janette Sanchez MD [address] [id number] PCP - General 04/24/15
[2025-04-28 06:35] VITALS: BP 160/70; PULSE 71; RESP 18; TEMP 36.6; O2SAT 98; BMI 44.1
[2025-04-28] MEDS: LACTATED RINGERS 1,000 ML 30 ML IV CONT (06:55)
[2025-04-28] MEDS: ACETAMINOPHEN 500 MG TABLET 1000 MG PO (07:00)
--- NOTE | 2025-04-28 07:08 | WPDANESEPPF ---
Anes - Initial Pre Proc Eval Procedure: Operation Date: 04/28/25 08:30 Proposed Procedures p Hysteroscopy with Josie Endometrial Ablation - Dneise Huffman MD Date/Time: 04/28/25 07:08 Surgeon: Denise Huffman MD Pre Op Diagnosis: menorrhagia Patient Data Age: 50 Gender: F Height: 1.6 m Weight: 113.4 kg Allergies Allergy/AdvReac Type Severity Reaction Status Date / Time bupropion (From Wellbutrin) AdvReac Intermediate tremors Verified 04/23/25 15:42 Home Medications ?Medication ?Instructions ?Recorded ?Confirmed ?Type lisdexamfetamine 70 mg capsule 70 mg PO QAM 08/08/24 04/23/25 History (Vyvanse) cholecalciferol (vitamin D3) 10 400 unit PO DAILY 03/21/25 04/23/25 History mcg (400 unit) capsule (Vitamin D3) dextromethorphan IR 45 1 tablet PO BID 03/21/25 04/23/25 History mg-bupropion ER 105 mg biphasic tablet (Auvelity) Patient hx anesthesia problems: none Family hx anesthesia problems: none Results Review: All pre-operative results and documents have been reviewed as part of the pre-operative evaluation. [facility] Past Medical History Medical History Irritable bowel syndrome (IBS) ADD (attention deficit disorder) Anemia Anxiety Depression Surgical History Surgical History History of D&C x2 and spontaneous Ab x1 History of tonsillectomy History of tympanomastoidectomy (~03/2010) Family History Family History Mother Heart disease Hypertension Anxiety Father Depression Anxiety Alcohol abuse Hypertension Grandparent Heart disease Alcohol abuse Social History Social History Smoking status: Never smoker Second hand tobacco smoke exposure: No Alcohol intake: never Alcohol use details: social 2 drinks/month Substance use: never Substance use type: does not use Lack of Transportation: No Lack of Food: Never True Current Housing: I Have Housing Concerned About Future Housing: No Difficulty Paying Gas/Electric Bills: No Difficulty Paying for Meds: No Currently Unemployed: No Education: Bachelor's Degree Difficulty w/ Childcare or Family Care: No Living arrangements: with family Additional living arrangements comments: Gender identity (if verbalized by the patient): Female Sexual Orientation (if Verbalized by the Patient): Straight or Heterosexual Spiritual care concerns: No Agree to blood products: Yes Anes - Eval Final PreProcedure Day of Procedure 04/28/25 07:08 Patient weight: morbidly obese Heart: regular rate and rhythm Lungs: clear to auscultation Airway: Mallampati scale class II Neurological: alert and oriented Last oral intake: >/= 8 hours ASA classification: III Emergent: no Anesthetic plan: proceed Anesthesia type and monitoring: general GIVS and standard monitoring Results Review: All pre-operative results and documents have been reviewed as part of the pre-operative evaluation. Informed Consent: The patient's anesthetic plan and its attendant risks and benefits were discussed with the patient/family/POA. Questions were solicited and answers provided to the satisfaction of the patient/family/POA.
[2025-04-28 07:16] LABS: BEDSIDEPREGUCG Negative (Negative)
--- NOTE | 2025-04-28 07:20 | WPDHPUPDATE1 ---
History and Physical Update Update Date/Time: 04/28/25 07:20 History and Physical has been reviewed, including an updated exam of the patient. There are NO changes in the patient's condition. Risks, benefits, and alternatives have been discussed and questions answered. Patient agrees to proceed with procedure.
--- NOTE | 2025-04-28 07:20 | PM.HPGS ---
History of Present Illness History of Present Illness Consent: Risks, benefits, and alternatives have been discussed and questions answered. Patient agrees to proceed with procedure. Chief complaint: menorrhagia Narrative: Radha Jorge is a 50 year old female status post D&C hysteroscopy with benign findings. Patient has elected to proceed with Josie endometrial ablation for treatment. Risks of infection, bleeding, perforation, and failure are reviewed. Patient voices understanding and agrees to proceed. Review of Systems Review of Systems: not repeated day of surgery; patient states no changes in status PMFSH Past Medical History Medical History Irritable bowel syndrome (IBS) ADD (attention deficit disorder) Anemia Anxiety Depression Surgical History Surgical History (Updated 04/28/25 @ 07:21 by Denise Huffman MD) History of hysteroscopy History of D&C x2 and spontaneous Ab x1 History of tonsillectomy History of tympanomastoidectomy (~03/2010) Family History Family History Mother Heart disease Hypertension Anxiety Father Depression Anxiety Alcohol abuse Hypertension Grandparent Heart disease Alcohol abuse Social History Social History Smoking status: Never smoker Second hand tobacco smoke exposure: No Alcohol intake: never Alcohol use details: social 2 drinks/month Substance use: never Substance use type: does not use Lack of Transportation: No Lack of Food: Never True Current Housing: I Have Housing Concerned About Future Housing: No Difficulty Paying Gas/Electric Bills: No Difficulty Paying for Meds: No Currently Unemployed: No Education: Bachelor's Degree Difficulty w/ Childcare or Family Care: No Living arrangements: with family Additional living arrangements comments: Gender identity (if verbalized by the patient): Female Sexual Orientation (if Verbalized by the Patient): Straight or Heterosexual Spiritual care concerns: No Agree to blood products: Yes Meds Home Medications and Allergies Home Medications ?Medication ?Instructions ?Recorded ?Confirmed ?Type lisdexamfetamine 70 mg capsule 70 mg PO QAM 08/08/24 04/28/25 History (Vyvanse) cholecalciferol (vitamin D3) 10 400 unit PO DAILY 11/14/25 12/17/25 History mcg (400 unit) capsule (Vitamin D3) dextromethorphan IR 45 1 tablet PO BID 03/21/25 04/28/25 History mg-bupropion ER 105 mg biphasic tablet (Auvelity) Allergies Allergy/AdvReac Type Severity Reaction Status Date / Time bupropion (From Wellbutrin) AdvReac Intermediate tremors Verified 04/28/25 07:11 Vital Signs Vital Signs - 24 hr 04/28/25 06:35 Temperature 97.9 F Pulse Rate 71 Respiratory Rate 18 Blood Pressure 160/70 H Pulse Oximetry 98 Oxygen Delivery Room Air Exam Const: General: healthy appearing and alert Orientation/consciousness: patient oriented x3 Resp: Effort & Inspection: normal respiratory effort : External Female Exam: normal external appearance Speculum Exam - Vagina: normal appearance of the vagina and normal vaginal discharge Speculum Exam - Cervix: normal appearance of the cervix Bimanual exam- vagina & uterus: uterine size normal and consistency normal Bimanual Exam- Adnexa, other: normal adnexae and No adnexal tenderness Neuro: General: patient oriented x3 Assessment and Plan Assessment and plan (1) Menorrhagia: Code(s): N92.0 - Excessive and frequent menstruation with regular cycle Status: Acute Assessment and Plan: Plan to proceed with endometrial ablation
[2025-04-28] MEDS: LIDOCAINE 1% LOCAL INJ 10 ML VIAL INFILTRATE (08:03)
[2025-04-28 08:27] VITALS: BP 127/68; PULSE 77; RESP 14; O2SAT 99
--- NOTE | 2025-04-28 08:28 | W.PM.PROC2 ---
Procedure Note - Detailed Date of Procedure 04/28/25 Pre-op Diagnosis menorrhagia Post-op Diagnosis Same Procedure Performed Josie endometrial ablation Surgeon Denise Huffman MD Anesthesia MAC Findings Uterus sounds to 10cm and appears grossly normal. Description of Procedure The patient is taken to the operating room and placed under anesthesia in the dorsal lithotomy position. She was prepped and draped in the usual sterile fashion. [place] speculum was placed in the vagina and the cervix grasped on the anterior lip with a tenaculum. The uterus is sounded to 10cm. The diagnostic hysteroscope was placed and with no abnormalities noted the ablation device is opened. The cervix was serially dilated to 8 [place]. The Josie device is placed at a setting 6cm. Cavity assessment passed on the 1st attempt. The treatment cycle lasted the and tired 2minutes. The Josie device is removed. The hysteroscope is replaced with good ablation effect noted. All instruments are removed. Sponge, needle, and instrument counts are correct per the OR staff. Patient was awakened from anesthesia and taken to recovery in stable condition. Estimated Blood Loss 5 Drains No Packing No Pathology None sent Complications No immediate complications Condition Stable Disposition PACU
[2025-04-28 08:55] VITALS: BP 142/92; PULSE 71; RESP 20
[2025-04-28] MEDS: oxyCODONE HCL (*CRX) 5 MG TAB IR PO (09:03)
[2025-04-28 09:20] VITALS: BP 132/79; PULSE 69; RESP 20
== END 2025-04-28 09:25 | disposition home or self-care (01) ==
PROVIDERS: PCP Nurse Practitioner Family; Visit Provider Obstetrics & Gynecology Gynecology
PROC: 0U5B8ZZ Destruction of Endometrium, Via Natural or Artificial Opening Endoscopic (ICD-10-PCS; CPT 58563; principal; 2025-04-28 08:30)
DX: N92.0 Excessive and frequent menstruation with regular cycle (principal)
CPT/HCPCS: 58353; A9270; J2003; J2250; J2704; J3010; J7120

== ENCOUNTER 2025-05-02 11:46 | Emergency (ER) | payer BC, SELFPAY ==
[2025-05-02 12:00] VITALS: BP 151/84; PULSE 79; RESP 16; TEMP 36.4; O2SAT 99
--- NOTE | 2025-05-02 12:11 | ED_ITS ---
HPI - URI/Sore Throat General Chief Complaint: Upper Respiratory Infection Stated Complaint: Cough Source: patient Mode of arrival: ambulatory Limitations: no limitations History of Present Illness HPI Narrative: this is a 50-year-old female patient presents to the urgent care with complaints of sinus pressure, ear fullness, and rhinorrhea since April 15. She has been taking Sudafed, Mucinex, Tylenol, and cough drops. No relief of pressure. She states however the last 2 days she has had increased pain in her right ear and discomfort. Sinus pressure is worse today. Denies any fever chills she denies any distress. MD elicited complaint: rhinorrhea, nasal congestion and sinus pain Onset (ago): week(s) (3) Consistency: constant Severity: mild Description of mucous: green Able to tolerate fluids by mouth: Yes Exacerbating factors: nothing Relieving factors: OTC cold medicine and cough suppressant Context: sick contacts Associated symptoms: denies other symptoms Treatments prior to arrival: acetaminophen and cold medicine Related Data Home Medications ?Medication ?Instructions ?Recorded ?Confirmed ?Last Taken ?Type lisdexamfetamine 70 mg capsule 70 mg PO QAM 08/08/24 1 06/29/24 04/27/25 History (Vyvanse) cholecalciferol (vitamin D3) 10 400 unit PO DAILY 03/0804/23/25 03/28/25 History mcg (400 unit) capsule (Vitamin D3) dextromethorphan IR 45 1 tablet PO BID 03/21/2504/27/25 History mg-bupropion ER 105 mg biphasic tablet (Auvelity) Allergies Allergy/AdvReac Type Severity Reaction Status Date / Time bupropion (From Wellbutrin) AdvReac Intermediate tremors Verified 05/02/25 11:53 [facility] Past Medical History Medical History (Updated 05/02/25 @ 12:18 by Constance Pires APRN) Irritable bowel syndrome (IBS) ADD (attention deficit disorder) Anemia Anxiety Depression Surgical History Surgical History (Updated 04/28/25 @ 07:21 by Denise Huffman MD) History of hysteroscopy History of D&C x2 and spontaneous Ab x1 History of tonsillectomy History of tympanomastoidectomy (~03/2010) Family History Family History Mother Heart disease Hypertension Anxiety Father Depression Anxiety Alcohol abuse Hypertension Grandparent Heart disease Alcohol abuse Social History Social History Smoking status: Never smoker Second hand tobacco smoke exposure: No Alcohol intake: never Alcohol use details: social 2 drinks/month Substance use: never Substance use type: does not use Lack of Transportation: No Lack of Food: Never True Current Housing: I Have Housing Concerned About Future Housing: No Difficulty Paying Gas/Electric Bills: No Difficulty Paying for Meds: No Currently Unemployed: No Education: Bachelor's Degree Difficulty w/ Childcare or Family Care: No Living arrangements: with family Additional living arrangements comments: Gender identity (if verbalized by the patient): Female Sexual Orientation (if Verbalized by the Patient): Straight or Heterosexual Spiritual care concerns: No Agree to blood products: Yes Exam Const: General: healthy appearing Nutritional Appearance: well nourished Orientation/consciousness: patient oriented x3 Limitations: no limitations HENMT: Head: normal to inspection Ears: TM abnormal bulging on the right, erythematous on the right and with fluid behind the TM on the right Face/Nose/Sinus: Nasal discharge present mucoid Face and sinus: sinus tenderness frontal and maxillary Mouth: Yes Normal oral and palatal mucosa present Teeth and gingiva: dentition normal Throat: posterior oropharynx normal Eyes: Conjunctivae: conjunctivae normal Pupils: Equal, round and reactive pupils present EOM: EOMs intact bilaterally Neck: Neck: normal visual inspection Chest: Chest palpation & inspection: normal inspection of the chest Resp: Effort & Inspection: normal respiratory effort Auscultation: clear to auscultation bilaterally Cardio: Rate: regular rate Rhythm: regular rhythm GI: GI Palp: Yes Soft to palpation Auscultation: normal bowel sounds Skin: General skin exam: normal color Rashes: no rashes Neuro: General: patient oriented x3 Cranial nerves: Yes Nystagmus not present Speech: normal speech Extrem: General: normal to inspection Psych: Mental Status: mental status grossly normal Affect: normal affect Attitude: cooperative Course Course Emergency Course: this is a 50-year-old female patient presents to the urgent care with complaints of sinus pressure, ear fullness, and rhinorrhea since April 15. She has been taking Sudafed, Mucinex, Tylenol, and cough drops. No relief of pressure. She states however the last 2 days she has had increased pain in her right ear and discomfort. Sinus pressure is worse today. Denies any fever chills she denies any distress. vital signs stable Influenza, COVID test ordered and negative. Educated on follow up and when to present to the ER. answered questions to satisfaction, agreeable to plan. Educated on Taking antibiotic as prescribed as well as prednisone as prescribed. Answered her questions to satisfaction. educated patient to Increase fluids Rest You ARE? contagious, please avoid? public places, immune compromise, elderly and younger patients. Continue with symptomatic management: -? Cough medication per package instructions - ? Tylenol and motrin for fever and pain -? Cough drops for sore throat and cough -? Mucinex for congestion -? Vicks vapor rub - ? Cool mist vaporizer Follow up with your primary MD in the next 2-3 days for further exam or Present to the ER for any worrisome sign or symptom patient denies any further needs or concerns to be addressed prior to discharge Level of Care: Express Care Visit Vital Signs Vital signs: Vital Signs Temperature 97.5 F L 05/02/25 12:00 Pulse Rate 79 05/02/25 12:00 Respiratory Rate 16 05/02/25 12:00 Blood Pressure 151/84 H 05/02/25 12:00 Pulse Oximetry 99 05/02/25 12:00 Oxygen Delivery Room Air 05/02/25 12:00 Temperature 97.5 F L 05/02/25 12:00 Pulse Rate 79 05/02/25 12:00 Respiratory Rate 16 05/02/25 12:00 Blood Pressure 151/84 H 05/02/25 12:00 Pulse Oximetry 99 05/02/25 12:00 Oxygen Delivery Room Air 05/02/25 12:00 [facility] MDM Narrative Medical decision making narrative: this is a 50-year-old female patient presents to the urgent care with complaints of sinus pressure, ear fullness, and rhinorrhea since April 15. She has been taking Sudafed, Mucinex, Tylenol, and cough drops. No relief of pr essure. She states however the last 2 days she has had increased pain in her right ear and discomfort. Sinus pressure is worse today. Denies any fever chills she denies any distress. vital signs stable Influenza, COVID test ordered and negative. Educated on follow up and when to present to the ER. answered questions to satisfaction, agreeable to plan. Educated on Taking antibiotic as prescribed as well as prednisone as prescribed. Answered her questions to satisfaction. educated patient to Increase fluids Rest You ARE? contagious, please avoid? public places, immune compromise, elderly and younger patients. Continue with symptomatic management: -? Cough medication per package instructions - ? Tylenol and motrin for fever and pain -? Cough drops for sore throat and cough -? Mucinex for congestion -? Vicks vapor rub - ? Cool mist vaporizer Follow up with your primary MD in the next 2-3 days for further exam or Present to the ER for any worrisome sign or symptom patient denies any further needs or concerns to be addressed prior to discharge Differential Diagnosis Differential Diagnosis: covid, influenza, sinusitis, otitis media Medical Records I have reviewed the following patient records and this information was taken into consideration when formulating the assessment and plan.: previous labs and previous clinic visits Lab Data MDM Lab Attestation statement: I personally reviewed the patient's lab results. Lab results narrative: Influenza negative COVID negative Discharge Plan Discharge Clinical Impression: Sinusitis Patient Disposition: Home Condition: Stable Instructions: Antibiotic Form, Sinusitis (ED) Additional Instructions: Increase fluids Rest continue antibiotic as prescribed continue with prednisone as prescribed Continue with symptomatic management: -? Cough medication per package instructions -? Tylenol and motrin for fever and pain -? Cough drops for sore throat and cough -? Mucinex for congestion -? Vicks vapor rub -? Cool mist vaporizer Follow up with your primary MD in the next 2-3 days for further exam or Present to the ER for any worrisome sign or symptom Patient Language: Bulgarian Prescriptions: New prednisone 10 mg tablet 10 mg PO BID Qty: 10 0RF azithromycin 250 mg tablet See Rx Instructions .ROUTE .COMPLEX Qty: 6 0RF Rx Instructions: For 250 mg dose pack: take 500 mg today (day 1), then 250 mg for 4 days (days 2-5) No Action lisdexamfetamine [Vyvanse] 70 mg capsule 70 mg PO QAM Patient Comments: binge eating ADHD Auvelity 45-105 mg tablet, IR and ER, biphasic 1 tablet PO BID Rx Instructions: administer at least 8 hours apart cholecalciferol (vitamin D3) [Vitamin D3] 10 mcg (400 unit) capsule 400 unit PO DAILY Follow-up/Referrals: Kayy Morales APRN [Primary Care Provider, Family Practice] Time of Disposition: 12:19
[2025-05-02 12:21] LABS: EDCOVIDSCREEN Negative (Negative); EDINFLUASCREEN Negative (Negative); EDINFLUBSCREEN Negative (Negative)
== END 2025-05-02 12:22 | disposition home or self-care (01) ==
PROVIDERS: Emergency Provider Nurse Practitioner Family; PCP Nurse Practitioner Family
DX: J32.9 Chronic sinusitis, unspecified (principal); Z20.822 Contact with and (suspected) exposure to COVID-19
CPT/HCPCS: 87426; 87804; 99213; G0463